=== PATIENT | male | born 1940 | race Caucasian/White ===

== ENCOUNTER 2020-01-30 10:54 | Emergency (ER) | payer MEDICARE, SELFPAY ==
--- NOTE | ~2020-01-30 | XR_ITS ---
XR chest 2V DATE: 01/30/2020 11:23 INDICATION: Chest pain for 2 days TECHNIQUE: AP and lateral views COMPARISON: None FINDINGS: Normal heart size. There is aortic calcification and tortuosity. No hilar or mediastinal en largement. There is eventration of the anterior portion of the right leaf of the diaphragm. No pulmonary infiltrate or consolidation, pleural effusion or pulmonary vascular congestion or pneumo thorax is detected. Diffuse osteopenia. Scoliosis and mild degenerative changes of the thoracic spine. Surgical clips, right upper quadrant, likely due to cholecystectomy. IMPRESSION: No active cardiopulmonary disease Aortic calcification and tortuosity Diffuse osteopenia Reviewed, dictated and finalized at location A.
[2020-01-30 10:52] VITALS: BP 158/86; PULSE 81; RESP 17; TEMP 36.8; O2SAT 98
[2020-01-30 11:00] VITALS: PULSE 85
--- NOTE | 2020-01-30 11:01 | ECG_ITS ---
Measurements Intervals [place] Rate: 80 P: [place]: 0 QRS: 91 QRSD: 166 T: -24 QT: 414 QTc: 479 Interpretive Statements ATRIAL FIBRILLATION RIGHT BUNDLE BRANCH BLOCK ST-T WAVE ABNORMALITY IN INFERIOR LEADS- CONSIDER ISCHEMIA BASELINE ARTIFACT- II ABNORMAL ECG Electronically Signed On 01-30-2020 13:18:01 CDT by Ted Youssef D.O.
[2020-01-30 11:58] LABS: Basophils Absolute Auto 0.1 K/mm3 (0.0-0.1); Basophils Percent Auto 0.7 % (0.2-1.2); Eosinophils Absolute Auto 0.1 K/mm3 (0-0.3); Eosinophils Percent Auto 1.2 % (0-4.4); Hemoglobin 13.8 g/dL (14.0-18.0); Immature Granulocyte Absolute 0.03 K/mm3 (0.00-0.031); Immature Granulocyte Percent A 0.4 % (0-0.5); Lymphocytes Percent Auto 22.3 % (18.3-44.2); Mean Corpuscular HGB Conc 32.1 g/dl (32-36); Mean Corpuscular Hemoglobin 29.7 pg (26-34); Mean Corpuscular Volume 92.7 fl (80-100); Mean Platelet Volume 10.3 fl (7.4-10.4); Monocytes Absolute Auto 0.5 K/mm3 (0.1-0.6); Neutrophils Absolute Auto 5.2 K/mm3 (1.3-6.7); Neutrophils Percent Auto 68.4 % (45.5-73.1); Platelet Count Result 297 k/mm3 (150-375); Red Blood Count 4.64 M/mm3 (4.6-6.20); Red Cell Distribution Width 14.2 % (11.5-14.5); White Blood Count 7.6 K/mm3 (4.5-10.0)
[2020-01-30 12:04] LABS: INR 2.1; Prothrombin Time 23.4 Seconds (11.1-14.7)
[2020-01-30 12:05] LABS: Partial Thromboplastin Time 47.3 SECONDS (22.3-36.8)
[2020-01-30 12:07] LABS: Blood Urea Nitrogen 15 mg/dL (9-20); Calcium 8.8 mg/dL (8.4-10.2); Carbon Dioxide 30 mmol/L (22-30); Chloride 104 mmol/L (98-107); Estimated CRCL calculation 51 ml/min; Estimated Glomerular Filt Rate > 60; Glucose 117 mg/dL (75-110); Potassium 3.5 mmol/L (3.4-5.0); Sodium 140 mmol/L (137-145)
[2020-01-30 12:18] LABS: Troponin I < 0.012 ng/mL (0.000-0.034)
[2020-01-30 14:15] VITALS: BP 142/85; PULSE 70; RESP 18; O2SAT 99
[2020-01-30 14:46] LABS: Troponin I < 0.012 ng/mL (0.000-0.034)
--- NOTE | 2020-01-30 14:58 | ED.CHESTPAIN ---
HPI - Chest Pain General Chief Complaint: Chest Pain Stated Complaint: CP Time Seen by Provider: 01/30/20 10:55 History of Present Illness HPI narrative: Patient is an 80-year-old male who presents the ER with chest pain. It central and pressure and has been occurring more often than not over the last month. Is become more frequent over the last couple weeks. It last for 30 minutes and goes away on its own. It is typically occurring only in the mornings. Last chest pain was 30 minutes prior to arrival. He has no nausea/vomiting/sweats/dizziness with this. It is not associated with eating. Has history of A. fib but no history of coronary disease. Cannot identify aggravating or alleviating factors. Related Data Home Medications Medication Instructions Recorded Confirmed fexofenadine 180 mg tablet 180 mg PO DAILY 08/22/19 omeprazole 20 mg capsule,delayed 20 mg PO DAILY 08/22/19 release tamsulosin 0.4 mg capsule 0.4 mg PO DAILY 08/22/19 Allergies Allergy/AdvReac Type Severity Reaction Status Date / Time No Known Allergies Allergy Verified 01/30/20 11:02 Review of Systems Review of Systems: All systems reviewed & are unremarkable except as noted in HPI and below Constitutional: Constitutional: Denies chills, Denies fever(s) and Denies weakness ENT: Denies nasal congestion and Denies sore throat Cardiovascular: Cardiovascular: Reports chest pain, Denies rapid heart rate and Denies radiating jaw, neck or arm pain Respiratory: Respiratory: Denies cough, Denies dyspnea and Denies wheezing Gastrointestinal: Gastrointestinal: Denies abdominal pain, Denies nausea and Denies vomiting PMFSH Past Medical History Medical History (Updated 01/30/20 @ 15:50 by Kirk Benson MD) BPH (benign prostatic hyperplasia) Chronic a-fib Chronic gastroesophageal reflux disease CKD (chronic kidney disease) stage 3, GFR 30-59 ml/min COPD (chronic obstructive pulmonary disease) HTN (hypertension) Surgical History Surgical History (Updated 01/30/20 @ 15:46 by Kirk Benson MD) H/O thyroidectomy Family History Family History (Updated 12/06/18 @ 08:44 by DOCTOR UNKNOWN) Mother Hypertension Family history of cardiovascular disease Father Family history of Parkinson's disease Malignant neoplasm of prostate Social History Social History Smoking status: Former smoker Smoking end date: 10/05/80 Alcohol intake: current Exam Narrative: Exam Narrative: GENERAL: Well-appearing, well-nourished, and in no acute distress. HEAD: Normocephalic, atraumatic. ENT: Mucous membranes moist. NECK: Supple. CHEST: Clear to auscultation. No respiratory distress. HEART: Irregular regular rate and rhythm. Normal peripheral pulses. ABDOMEN: Soft, nontender, nondistended. EXTREMITIES: Normal range of motion. No edema. SKIN: Warm, dry, no rash. NEURO: Alert and oriented x3. PSYCH: Normal mood and affect. Course Course Emergency Course: Patient informed of results. Discussed case with Dr. Morris. Troponins negative x2. Discussed EKG. Patient is pain-free. Sarah appropriate for close follow-up given persistent nature of his discomfort over the last month and that ACS has been ruled out. Vital Signs Vital signs: Vital Signs Temperature 98.2 F 01/30/20 10:52 Pulse Rate 81 01/30/20 10:52 Respiratory Rate 17 01/30/20 10:52 Blood Pressure 158/86 H 01/30/20 10:52 Pulse Oximetry 98 01/30/20 10:52 Temperature 98.2 F 01/30/20 10:52 Pulse Rate 70 01/30/20 14:15 Respiratory Rate 18 01/30/20 14:15 Blood Pressure 142/85 H 01/30/20 14:15 Pulse Oximetry 99 01/30/20 14:15 MDM - Chest Pain Lab Data Result diagrams: 01/30/20 11:43 01/30/20 11:43 Labs: Lab Results 01/30/20 01/30/20 01/30/20 Range/Units 11:43 11:43 11:43 WBC 7.6 (4.5-10.0) K/mm3 RBC 4.64 (4.6-6.20) M/mm3 Hgb 13.8 L (14.0-18.0) g/dL Hct 43.0 (42.0-52.
[2020-01-30 15:59] VITALS: BP 148/82; PULSE 78; RESP 15; O2SAT 100
== END 2020-01-30 16:00 | disposition home or self-care (01) ==
PROVIDERS: Emergency Provider Emergency Medicine; PCP Family Medicine
DX: R07.9 Chest pain, unspecified (principal); N40.0 Benign prostatic hyperplasia without lower urinary tract symptoms; I48.20 Chronic atrial fibrillation, unspecified; K21.9 Gastro-esophageal reflux disease without esophagitis; I12.9 Hypertensive chronic kidney disease with stage 1 through stage 4 chronic kidney disease, or unspecified chronic kidney disease; N18.3 Chronic kidney disease, stage 3 (moderate); J44.9 Chronic obstructive pulmonary disease, unspecified; E89.0 Postprocedural hypothyroidism; Z87.891 Personal history of nicotine dependence; M85.88 Other specified disorders of bone density and structure, other site; I45.10 Unspecified right bundle-branch block; R94.31 Abnormal electrocardiogram [ECG] [EKG]
CPT/HCPCS: 36415; 71046; 80048; 84484; 85025; 85610; 85730; 93005; 99284

== ENCOUNTER 2020-02-01 03:27 | Inpatient (IN) | payer MEDICARE, SELFPAY ==
[2020-02-01] VITALS (20 sets, daily range): BP systolic 104–167; BP diastolic 59–114; PULSE 57–104; RESP 12–20; TEMP 35.8–36.8; O2SAT 97–100; BMI 26.9
--- NOTE | ~2020-02-01 | XR_ITS ---
EXAMINATION: XR chest 1V portable DATE: 02/01/2020 03:59 INDICATION: Chest pain. TECHNIQUE: A single frontal view of the chest was obtained. COMPARISON: Chest 2 views 01/30/2020 FINDINGS: Again seen is eventration of anterior right hemidiaphragm. No pneumonia, pleural effusion, or pneumothorax. The heart size is normal. IMPRESSION: 1. No acute cardiopulmonary disease. Reviewed, dictated and finalized at location A.
--- NOTE | 2020-02-01 03:40 | ECG_ITS ---
Measurements Intervals [place] Rate: 82 P: [place]: 0 QRS: 106 QRSD: 162 T: -26 QT: 394 QTc: 463 Interpretive Statements ATRIAL FIBRILLATION RIGHT AXIS DEVIATION RIGHT BUNDLE BRANCH BLOCK ST-T WAVE ABNORMALITY IN DIFFUSE LEADS- CONSIDER ISCHEMIA ABNORMAL ECG Electronically Signed On 02-01-2020 7:23:16 CDT by Ted Youssef D.O.
[2020-02-01 03:52] LABS: Basophils Absolute Auto 0.1 K/mm3 (0.0-0.1); Basophils Percent Auto 0.6 % (0.2-1.2); Eosinophils Absolute Auto 0.2 K/mm3 (0-0.3); Eosinophils Percent Auto 1.5 % (0-4.4); Hematocrit 41.9 % (42.0-52.0); Hemoglobin 13.7 g/dL (14.0-18.0); Immature Granulocyte Absolute 0.03 K/mm3 (0.00-0.031); Immature Granulocyte Percent A 0.3 % (0-0.5); Lymphocytes Absolute Auto 3.34 K/mm3 (0.9-3.2); Lymphocytes Percent Auto 33.2 % (18.3-44.2); Mean Corpuscular HGB Conc 32.7 g/dl (32-36); Mean Corpuscular Hemoglobin 30.2 pg (26-34); Mean Corpuscular Volume 92.3 fl (80-100); Mean Platelet Volume 10.5 fl (7.4-10.4); Monocytes Absolute Auto 0.9 K/mm3 (0.1-0.6); Monocytes Percent Auto 8.4 % (2.6-8.5); Neutrophils Absolute Auto 5.6 K/mm3 (1.3-6.7); Platelet Count Result 297 k/mm3 (150-375); Red Blood Count 4.54 M/mm3 (4.6-6.20); Red Cell Distribution Width 14.4 % (11.5-14.5); White Blood Count 10.1 K/mm3 (4.5-10.0)
--- NOTE | 2020-02-01 03:52 | ED.CHESTPAIN ---
HPI - Chest Pain General Chief Complaint: Chest Pain Stated Complaint: cp Time Seen by Provider: 02/01/20 03:47 Source: patient Mode of arrival: EMS History of Present Illness complaint: chest pain Timing of current episode: constant and still present Onset: during rest Pain location: substernal Pain radiation: neck Severity: moderate Quality: tightness Relieving factors: nothing Exacerbating factors: nothing Risk Factors Coronary artery disease risk factors: hyperlipidemia and hypertension Related Data Home Medications Medication Instructions Recorded Confirmed fexofenadine 180 mg tablet 180 mg PO DAILY 08/22/19 omeprazole 20 mg capsule,delayed 20 mg PO DAILY 08/22/19 release tamsulosin 0.4 mg capsule 0.4 mg PO DAILY 08/22/19 Allergies Allergy/AdvReac Type Severity Reaction Status Date / Time No Known Allergies Allergy Verified 02/01/20 03:48 Review of Systems Review of Systems: All systems reviewed & are unremarkable except as noted in HPI and below Constitutional: Constitutional: Denies body ache(s), Denies chills, Denies excessive sweating, Denies fatigue, Denies fever(s), Denies headache(s), Denies lethargy, Denies malaise, Denies weakness and Denies weight loss Eyes: Eyes: Denies blurry vision, Denies change in vision and Denies loss of vision ENT: Denies dizziness, Denies ear discharge, Denies headache(s), Denies lip swelling, Denies epistaxis, Denies nasal congestion, Denies neck pain, Denies throat swelling and Denies tongue swelling Cardiovascular: Cardiovascular: Reports chest pain, Denies chest pain at rest, Denies chest pain with activity, Denies diaphoresis, Denies rapid heart rate, Denies edema, Denies irregular heart rhythm, Denies lightheadedness, Denies palpitations, Denies dyspnea and Denies dyspnea on exertion Respiratory: Respiratory: Denies chest congestion, Denies cough, Denies hemoptysis, Denies dyspnea and Denies dyspnea on exertion Gastrointestinal: Gastrointestinal: Denies abdominal pain, Denies melena, Denies hematochezia, Denies diarrhea, Denies nausea, Denies vomiting and Denies hematemesis Musculoskeletal: Musculoskeletal: Denies abnormal gait, Denies deformity, Denies joint swelling, Denies limited range of motion, Denies neck pain and Denies numbness Neurologic: Denies Abnormal speech present, Denies abnormal gait, Denies confusion, Denies dizziness, Denies headache(s), Denies focal weakness, Denies loss of vision, Denies numbness, Denies Other visual disturbances, Denies Sensory deficit (Neuro) and Denies weakness Psychiatric: Psychiatric: Denies confusion, Denies depression, Denies auditory hallucinations, Denies homicidal ideation and Denies suicidal ideation Endocrine: Endocrine: Denies cold intolerance, Denies excessive sweating, Denies fatigue, Denies heat intolerance and Denies palpitations Hematologic/Lymphatic: Hematologic/Lymphatic: Denies easy bleeding and Denies easy bruising Allergic/Immunologic: Allergic/Immunologic: Denies lip swelling, Denies throat swelling and Denies tongue swelling PMFSH Past Medical History Medical History (Updated 02/01/20 @ 04:12 by Americo Luna MD) BPH (benign prostatic hyperplasia) Chronic a-fib Chronic gastroesophageal reflux disease CKD (chronic kidney disease) stage 3, GFR 30-59 ml/min COPD (chronic obstructive pulmonary disease) HTN (hypertension) Surgical History Surgical History (Updated 01/30/20 @ 15:46 by Kirk Benson MD) H/O thyroidectomy Family History Family History (Updated 12/06/18 @ 08:44 by DOCTOR UNKNOWN) Mother Hypertension Family history of cardiovascular disease Father Family history of Parkinson's disease Malignant neoplasm of prostate Social History Social History Smoking status: Former smoker Smoking end date: 10/05/80 Alcohol intake: current Exam Const: General: cooperative, healthy appearing, comfortable, no acute distress, well developed, alert and awak
[2020-02-01 04:05] LABS: Blood Urea Nitrogen 17 mg/dL (9-20); Calcium 8.9 mg/dL (8.4-10.2); Carbon Dioxide 27 mmol/L (22-30); Chloride 105 mmol/L (98-107); Estimated CRCL calculation 51 ml/min; Estimated Glomerular Filt Rate > 60; Glucose 115 mg/dL (75-110); Potassium 3.7 mmol/L (3.4-5.0); Sodium 139 mmol/L (137-145)
[2020-02-01] MEDS: ASPIRIN 81 MG CHEWABLE TABLET 324 MG PO (04:09)
[2020-02-01] MEDS: NITROGLYCERIN OINTMENT 1 INCH DOSE TRANSDERM ×4 (04:09→23:52)
[2020-02-01 04:18] LABS: NT Pro B Type Natriuretic Pept 717 PG/ML (5-100); Troponin I < 0.012 ng/mL (0.000-0.034)
--- NOTE | 2020-02-01 05:44 | ADMGEN ---
This patient, Derrell Santos, was admitted to IMU Room 213-01. Patient/family oriented to hospital policies and general routines including ID bracelet, bed and alarms, visiting hours, pain management, procedures, bathroom and other care routines, personal items, smoking policy, room service/diet, and visiting hours. Valuables list has been completed. Information on how to activate the Rapid Response Team has been discussed. Patient/Family are encouraged to report perceived risks to care and to ask questions if they do not understand what they are told or what they should do.
[2020-02-01 07:30] LABS: Troponin I 0.089 ng/mL (0.000-0.034)
--- NOTE | 2020-02-01 09:02 | PM.CNCAR ---
Assessment and Plan Additional Plan 80-year-old white male with: Chest pain syndrome concerning for ischemia. The quality of the pain is very concerning as well as the new lateral ST segment depression and modest troponin elevation. He has no previous history of documented coronary disease but these symptoms must be considered related to acute coronary syndrome until proven otherwise Does have chronic atrial fibrillation which is asymptomatic and rate controlled. He is taking Xarelto for systemic anticoagulation. He did take his Xarelto yesterday and so angiography today would not be prudent I will treat him with a beta-leora, aspirin, topical nitrates and withhold Xarelto. We will it anticipate proceeding with diagnostic angiography tomorrow John Morris MD [facility] History of Present Illness History of Present Illness Consult date/time: Date of service: 02/01/20 09:02 Consult reason: chest pain Reason For Visit: Chest Pain, A-fib Narrative: This is an 80-year-old man known to Dr. Fletcher of our practice who is being seen today at the request of the hospitalist for evaluation of chest pain. Previous to this he is not known to have coronary artery disease he follows with Dr. Fletcher in the office because of a history of chronic atrial fibrillation. He developed atrial fibrillation or least it was recognized several years ago. He was referred to the office and he was essentially asymptomatic of his arrhythmia. His evaluation did not show any significant valvular heart disease his left ventricular function is known to be preserved. He does have some mild sclerotic changes in his aortic valve. The patient was last seen in the office about a year ago and at that time was doing well. For about 2 or 3 months he has been having intermittent episodes of chest pain he describes it as a central substernal tightness or pressure-like sensation that is somewhat unusual in that it typically occurs at night after he gets up from sleep to use the restroom and then goes back to bed. The rest of the time during the day he is typically not bothered by this symptom but it does seem to come and go in an unpredictable manner it is not really related to physical exertion that he is noticed. It is not related to meals or body position. He elected to come into the emergency room for evaluation of this on Thursday of this week his ER evaluation was essentially unremarkable his electrocardiogram showed atrial fibrillation with a right bundle branch block and is biomarkers were negative. He was allowed to go home. He came back with more of the symptoms [place] in the middle of the night last night his evaluation in the emergency room now shows his EKG did demonstrate some additional significant lateral ST segment depression which was not seen on Mondays tracing. His troponin level is slightly elevated at 0.08. In this setting he was admitted back to the hospital and we have been consulted to see him. It does not seem like any other physician has seen him since I do not see any other notes on the chart. He normally is on a medical regimen consisting of amlodipine losartan and Xarelto. He does not appear to require anything for heart rate control for his atrial fibrillation. His only complaint now is that he needs to have a bowel movement. He has no previous history of known coronary artery disease. His only previous surgery was a cholecystectomy. Review of Systems Constitutional: Constitutional: Reports no additional constitutional complaints Eyes: Eyes: Reports no additional eye complaints ENT: Reports system reviewed and no additional complaints, except as documented Cardiovascular: Cardiovascular: Reports as per HPI and Reports chest pain Respiratory: Respiratory: Reports no additional respiratory complaints Gastrointestinal: Gastrointestinal: Reports no additional gastrointestinal complaints Musculoskeletal: Musculoskeletal: Reports no additional musc
[2020-02-01] MEDS: METOPROLOL TARTRATE 25 MG TABLET PO ×2 (09:23→21:16)
[2020-02-01] MEDS: ASPIRIN 81 MG ENTERIC TABLET PO (09:23)
--- NOTE | 2020-02-01 09:31 | PM.IMHP ---
H&P: HPI History of Present Illness Chief complaint: Chest Pain, A-fib Narrative: Derrell Santos is a 80 year old male with history of hypertension and chronic atrial fibrillation. He was feeling well until about 2 months ago. At that point he began to have intermittent substernal chest pressure that radiated to the shoulders and neck. Lasted about 10-15 minutes. It was 1st aggravated by physical therapy exercises, particularly thigh rolls. Daily began to have bothersome symptoms while getting up at night to urinate. Each would last about 10-15 minutes. It would occur with his physical therapy exercises or after urinated and walk back to bed. He denied any associated symptoms. The problem gradually worsened. Gradually became more severe. Two days ago it was moderate to severe and lasted a bit longer. 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 He and his called their daughter who encouraged him to go to the emergency department. He denied dyspnea, palpitations, syncope or presyncope, headache, weakness or numbness, nausea or indigestion. Review of Systems Review of Systems: Narrative: Chronic balance issues and unsteady gait. All systems reviewed & are unremarkable except as noted in HPI and below PMFSH Past Medical History Medical History BPH (benign prostatic hyperplasia) Chronic a-fib Chronic gastroesophageal reflux disease CKD (chronic kidney disease) stage 3, GFR 30-59 ml/min COPD (chronic obstructive pulmonary disease) HTN (hypertension) Surgical History Surgical History (Updated 02/01/20 @ 09:52 by Gabino Rosario MD) H/O removal of cyst about 2018, from posterior neck, performed at [facility] ([place]) Family History Family History Mother Hypertension Family history of cardiovascular disease Father Family history of Parkinson's disease Malignant neoplasm of prostate Social History Social History Smoking status: Former smoker Tobacco type: cigarettes Second hand tobacco smoke exposure: Yes Smoking end date: 10/05/80 Alcohol intake: current Drinks per week: 1 Substance use: never Substance use type: does not use Spiritual care concerns: No Agree to blood products: Yes Meds Home Medications and Allergies Home Medications Medication Instructions Recorded Confirmed Type fexofenadine 180 mg tablet 180 mg PO DAILY 08/22/19 02/01/20 History omeprazole 20 mg capsule,delayed 20 mg PO DAILY 08/22/19 02/01/20 History release tamsulosin 0.4 mg capsule 0.4 mg PO DAILY 08/22/19 02/01/20 History amlodipine 5 mg tablet 5 mg PO DAILY #90 tablet 11/10/19 02/01/20 Rx finasteride 5 mg tablet 5 mg PO DAILY #90 tablet 11/10/19 02/01/20 Rx fluticasone furoate 100 1 inhalation INHALATION Q24H #180 11/30/19 02/01/20 Rx mcg-vilanterol 25 mcg/dose each inhalation powder albuterol sulfate 90 mcg/actuation 1 puff INHALATION Q4H PRN #18 gm 12/07/19 02/01/20 Rx aerosol inhaler losartan 50 mg PO DAILY 02/01/20 02/01/20 History rivaroxaban [Xarelto] 20 mg PO DAILY 02/01/20 02/01/20 History Allergies Allergy/AdvReac Type Severity Reaction Status Date / Time No Known Allergies Allergy Verified 02/01/20 03:48 Vital Signs Vital Signs - 24 hr 02/01/20 03:33 02/01/20 03:39 02/01/20 04:53 Temperature 96.7 F L Pulse Rate 77 80 65 Respiratory Rate 16 16 Blood Pressure 167/114 H 157/91 H Pulse Oximetry 98 97 02/01/20 05:43 02/01/20 06:00 02/01/20 07:58 Temperature 97.6 F 96.5 F L Pulse Rate 77 78 72 Respiratory Rate 20 12 Blood Pressure 151/92 H 151/71 H Pulse Oximetry 99 98 02/01/20 09:19 02/01/20 09:23 Temperature 96.6 F L Pulse Rate 91 104 H Respiratory Rate 16 Blood Pressure 140/95 H Pulse Oximetry
[2020-02-01 10:20] LABS: Troponin I 0.141 ng/mL (0.000-0.034)
[2020-02-01] MEDS: TAMSULOSIN HCL 0.4 MG CAPSULE PO (11:46)
[2020-02-01] MEDS: ATORVASTATIN 40 MG TABLET PO (11:46)
[2020-02-01] MEDS: PANTOPRAZOLE 40 MG TABLET PO (11:47)
[2020-02-01] MEDS: LOSARTAN POTASSIUM 50 MG TABLET PO (11:47)
[2020-02-01] MEDS: LORATADINE 10 MG TABLET PO (11:47)
[2020-02-01] MEDS: FINASTERIDE 5 MG TABLET PO (11:47)
[2020-02-01] MEDS: AMLODIPINE BESYLATE 5 MG TABLET PO (11:47)
[2020-02-02] VITALS (23 sets, daily range): BP systolic 119–159; BP diastolic 68–99; PULSE 57–74; RESP 11–21; TEMP 35.6–37; O2SAT 94–100
[2020-02-02 04:41] LABS: Hematocrit 39.6 % (42.0-52.0); Hemoglobin 12.9 g/dL (14.0-18.0); Mean Corpuscular HGB Conc 32.6 g/dl (32-36); Mean Corpuscular Hemoglobin 29.9 pg (26-34); Mean Corpuscular Volume 91.9 fl (80-100); Mean Platelet Volume 10.3 fl (7.4-10.4); Platelet Count Result 298 k/mm3 (150-375); Red Blood Count 4.31 M/mm3 (4.6-6.20); Red Cell Distribution Width 14.2 % (11.5-14.5); White Blood Count 10.1 K/mm3 (4.5-10.0)
[2020-02-02 04:53] LABS: Blood Urea Nitrogen 17 mg/dL (9-20); Calcium 8.8 mg/dL (8.4-10.2); Carbon Dioxide 28 mmol/L (22-30); Chloride 107 mmol/L (98-107); Estimated CRCL calculation 51 ml/min; Estimated Glomerular Filt Rate > 60; Glucose 97 mg/dL (75-110); Potassium 3.6 mmol/L (3.4-5.0); Sodium 140 mmol/L (137-145)
[2020-02-02] MEDS: NITROGLYCERIN OINTMENT 1 INCH DOSE TRANSDERM ×2 (06:10→17:38)
[2020-02-02] MEDS: ASPIRIN 81 MG ENTERIC TABLET PO (08:10)
[2020-02-02] MEDS: METOPROLOL TARTRATE 25 MG TABLET PO (08:10)
[2020-02-02] MEDS: ATORVASTATIN 40 MG TABLET PO (08:11)
[2020-02-02] MEDS: LOSARTAN POTASSIUM 50 MG TABLET PO (08:21)
[2020-02-02] MEDS: AMLODIPINE BESYLATE 5 MG TABLET PO (08:21)
[2020-02-02] MEDS: TAMSULOSIN HCL 0.4 MG CAPSULE PO (08:23)
[2020-02-02] MEDS: PANTOPRAZOLE 40 MG TABLET PO (08:23)
[2020-02-02] MEDS: FINASTERIDE 5 MG TABLET PO (08:24)
[2020-02-02] MEDS: LORATADINE 10 MG TABLET PO (08:24)
--- NOTE | 2020-02-02 11:35 | WPDHPUPDATE1 ---
History and Physical Update Update Date/Time: 02/02/20 11:35 History and Physical has been reviewed, including an updated exam of the patient. There are NO changes in the patient's condition. Risks, benefits, and alternatives have been discussed and questions answered. Patient agrees to proceed with procedure.
--- NOTE | 2020-02-02 11:35 | WPDMODSED ---
Moderate Sedation Note-Pt Data Patient Data Allergies Allergy/AdvReac Type Severity Reaction Status Date / Time No Known Allergies Allergy Verified 02/01/20 03:48 Home Medications Medication Instructions Recorded Confirmed Type fexofenadine 180 mg tablet 180 mg PO DAILY 08/22/19 02/01/20 History omeprazole 20 mg capsule,delayed 20 mg PO DAILY 08/22/19 02/01/20 History release tamsulosin 0.4 mg capsule 0.4 mg PO DAILY 08/22/19 02/01/20 History amlodipine 5 mg tablet 5 mg PO DAILY #90 tablet 11/10/19 02/01/20 Rx finasteride 5 mg tablet 5 mg PO DAILY #90 tablet 11/10/19 02/01/20 Rx fluticasone furoate 100 1 inhalation INHALATION Q24H #180 11/30/19 02/01/20 Rx mcg-vilanterol 25 mcg/dose each inhalation powder albuterol sulfate 90 mcg/actuation 1 puff INHALATION Q4H PRN #18 gm 12/07/19 02/01/20 Rx aerosol inhaler losartan 50 mg PO DAILY 02/01/20 02/01/20 History rivaroxaban [Xarelto] 20 mg PO DAILY 02/01/20 02/01/20 History Current Medications: Active Medications Albuterol (Proventil Hfa) 1 puff INHALATION Q4HRT PRN PRN Reason: shortness of breath or wheezing Amlodipine Besylate (Norvasc) 5 mg PO DAILY [facility] Last Admin: 02/02/20 08:21 Dose: 5 mg Documented by: Aspirin (Aspirin Ec) 81 mg PO QAM [facility] Last Admin: 02/02/20 08:10 Dose: 81 mg Documented by: Atorvastatin Calcium (Lipitor) 40 mg PO DAILY [facility] Last Admin: 02/02/20 08:11 Dose: 40 mg Documented by: Budesonide/Formoterol Fumarate (Symbicort 160-4.5 Mcg (*Sp) Inhaler) 2 puff INHALATION Q12HRT [facility] Last Admin: 02/02/20 08:30 Dose: Not Given Documented by: Finasteride (Proscar) 5 mg PO DAILY [facility] Last Admin: 02/02/20 08:24 Dose: 5 mg Documented by: Sodium Chloride (Normal Saline Iv) 500 mls @ 100 mls/hr IV CONT .Q5H [facility] Loratadine (Claritin) 10 mg PO QAM [facility] Last Admin: 02/02/20 08:24 Dose: 10 mg Documented by: Losartan Potassium (Cozaar) 50 mg PO DAILY [facility] Last Admin: 02/02/20 08:21 Dose: 50 mg Documented by: Metoprolol Tartrate (Lopressor) 25 mg PO Q12HR [facility] Last Admin: 02/02/20 08:10 Dose: 25 mg Documented by: Nitroglycerin (Nitroglycerin Oint 1 Inch) 1 inch TRANSDERM Q6HR [facility] Last Admin: 02/02/20 06:10 Dose: 1 inch Documented by: Nitroglycerin (Nitrostat Subl 0.4 Mg (1/150)) 0.4 mg SUBLINGUAL Q5MIN PRN PRN Reason: Chest Pain Pantoprazole Sodium (Protonix) 40 mg PO QAM [facility] Last Admin: 02/02/20 08:23 Dose: 40 mg Documented by: Tamsulosin HCl (Flomax) 0.4 mg PO DAILY [facility] Last Admin: 02/02/20 08:23 Dose: 0.4 mg Documented by: Sedation/Anesthesia: No previous sedation/anesthesia problems (including family history). [facility] Past Medical History Medical History BPH (benign prostatic hyperplasia) Chronic a-fib Chronic gastroesophageal reflux disease CKD (chronic kidney disease) stage 3, GFR 30-59 ml/min COPD (chronic obstructive pulmonary disease) HTN (hypertension) Surgical History Surgical History H/O removal of cyst about 2018, from posterior neck, performed at [facility]) Family History Family History Mother Hypertension Family history of cardiovascular disease Father Family history of Parkinson's disease Malignant neoplasm of prostate Social History Social History Smoking status: Former smoker Tobacco type: cigarettes Second hand tobacco smoke exposure: Yes Smoking end date: 10/05/80 Alcohol intake: current Drinks per week: 1 Substance use: never Substance use type: does not use Spiritual care concerns: No Agree to blood products: Yes Mod Sed Physical Exam Physical Exam Pre Procedural Exam: Normal: Appearance, Eyes, Ears, Nose, Neck, Throat, Airway, Lungs, Heart Size, Heart Rate, Heart Rhythm, Neuro Exam, Abdomen, L
--- NOTE | 2020-02-02 11:35 | WPDCARDPROC ---
Cardiac Cath Procedure Note Date of procedure:: 02/02/20 Performing physician:: Cece Martinez MD Date of service February 02, 2020 Procedure Procedure performed:: 1-Moderate sedation that started at 9:40 am and ended at 10:20 am with total duration 40 minutes using 2 mg of Versed and 50mcg fentanyl. The registered nurse was pat chartrand 2-Selective left and right coronary angiogram. 3-Left heart catheterization with measurement of LVEDP and measurement of gradient across aortic valve. 4-LV angiogram . Sedation/Medication given:: Moderate sedation. Access site:: Right common femoral artery. Estimated blood loss:: 10cc Procedure note:: After informed consent patient was brought in to clinical lab assistant with the was draped and prepped in usual manner. Moderate sedation was given and the right groin was infiltrated using 1% lidocaine. Five [place]amanian sheath was obtained using micropuncture needle and the modified Seldinger technique. Selective left coronary angiogram was done using JL4 catheter with the tip of the catheter placed in the left main coronary artery. Selective right coronary angiogram was done using WRP catheter with the tip of the catheter placed to the right coronary artery. After that 5 [place]ian pigtail catheter was advanced across the aortic valve into the left ventricle with measurement of LVEDP and measurement of gradient across aortic valve. LV angiogram was done. Findings:: 1- left coronary artery is a large artery that divides into large LAD, large circumflex artery. Left main has mid 90% stenosis. 2- left anterior descending artery is a large artery that runs and wraps around the apex. Has minimal irregularities. Gives a small diagonal 1 branch and then large diagonal 2 branch irregularities. 3- leftcircumflex artery is a large artery and dominant. It has minimal irregularities. The mid segment gives rise to a medium-sized OM 1 branch and then distally large left PDA with minimal irregularities. 4- right coronary artery is nondominant with minimal irregularities. 5- LVEDP was 15 mm Hg and no gradient across aortic valve. 6-LV angiogram shows normal LV systolic function with ejection fraction 65%. 6- opening arterial pressure was and closing pressure [id number] and closing pressure 130/70 Conclusion:: High-grade stenosis mid left main coronary artery Assessment and Plan Additional Plan Will transfer to [facility] for consideration for bypass surgery
--- NOTE | 2020-02-02 12:23 | P.TS_ITS ---
Transfer Discharge Sum: Prov Provider Date of admission: 02/01/20 09:35 Primary care physician: Tomer Mancini MD Admitting clinician: Cj Paulino MD Consults: 02/01/20 Consult to Physician Routine Comment: exchange notified at 0615 on 02/01/20 Consulting Provider: Vinnie Fletcher crew caller/MD group to consult: DR FLETCHER/ [facility] Reason for consultation: CHEST PAIN Has provider been notified: Yes Attending physician on discharge: Gabino Rosario Discharging clinician: Gabino Rosario Anticipated date of transfer: 02/02/20 Receiving physician/facility: [facility] DS: Diagnosis Admitting Diagnosis Admitting Diagnosis: Chest pain, unspecified Discharge Diagnosis (1) Chest pain: Qualifiers: Chest pain type: unspecified Qualified Code(s): R07.9 - Chest pain, unspecified Code(s): R07.9 - Chest pain, unspecified Status: Acute Assessment and Plan: * ST segment changes on electrocardiogram and slight rise in troponin as well as the patient's history of exertion induced chest discomfort are all compatible with stable angina pectoris * Added aspirin beta-leora and nitrates * Added statin * Cardiology to evaluation revealed 90% L Main lesion * [place] accepted (2) Atrial fibrillation: Qualifiers: Atrial fibrillation type: unspecified chronic Qualified Code(s): I48.20 - Chronic atrial fibrillation, unspecified Code(s): I48.91 - Unspecified atrial fibrillation Status: Acute Assessment and Plan: * Held Xarelto 01/31 due to anticipated coronary angiography 02/01 * Continue to hold in anticipation of CABG (3) CKD (chronic kidney disease) stage 3, GFR 30-59 ml/min: Code(s): N18.3 - Chronic kidney disease, stage 3 (moderate) Status: Chronic Assessment and Plan: * Monitor renal function pre and post coronary angiogram (4) Chronic gastroesophageal reflux disease: Code(s): K21.9 - Gastro-esophageal reflux disease without esophagitis Status: Chronic Assessment and Plan: * Continue home regimen (5) HTN (hypertension): Qualifiers: Hypertension type: essential hypertension Qualified Code(s): I10 - Essential (primary) hypertension Code(s): I10 - Essential (primary) hypertension Status: Chronic Assessment and Plan: * Continue losartan and amlodipine * Monitor pressure with the addition beta-leora and nitrates (6) COPD (chronic obstructive pulmonary disease): Code(s): J44.9 - Chronic obstructive pulmonary disease, unspecified Status: Chronic Assessment and Plan: * Clinically stable (7) BPH (benign prostatic hyperplasia): Code(s): N40.0 - Benign prostatic hyperplasia without lower urinary tract symptoms Status: Chronic Assessment and Plan: * Continue home regimen (8) Allergic rhinitis: Code(s): J30.9 - Allergic rhinitis, unspecified Status: Chronic Assessment and Plan: * Continue home regimen (9) Mild intermittent asthma: Code(s): J45.20 - Mild intermittent asthma, uncomplicated Status: Chronic Assessment and Plan: * Continue home regimen (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
--- NOTE | 2020-02-02 12:23 | PM.TDS ---
Transfer Discharge Sum: Prov Provider Date of admission: 02/01/20 09:35 Primary care physician: Tomer Mancini MD Admitting clinician: Cj Paulino MD Consults: 02/01/20 Consult to Physician Routine Comment: exchange notified at 0615 on 02/01/20 Consulting Provider: Vinnie Fletcher coil winder repair/MD group to consult: DR FLETCHER/ [facility] Reason for consultation: CHEST PAIN Has provider been notified: Yes Attending physician on discharge: Gabino Rosario Discharging clinician: Gabino Rosario Anticipated date of transfer: 02/02/20 Receiving physician/facility: [facility] DS: Diagnosis Admitting Diagnosis Admitting Diagnosis: Chest pain, unspecified Discharge Diagnosis (1) Chest pain: Qualifiers: Chest pain type: unspecified Qualified Code(s): R07.9 - Chest pain, unspecified Code(s): R07.9 - Chest pain, unspecified Status: Acute Assessment and Plan: ST segment changes on electrocardiogram and slight rise in troponin as well as the patient's history of exertion induced chest discomfort are all compatible with stable angina pectoris Added aspirin beta-leora and nitrates Added statin Cardiology to evaluation revealed 90% L Main lesion [place] accepted (2) Atrial fibrillation: Qualifiers: Atrial fibrillation type: unspecified chronic Qualified Code(s): I48.20 - Chronic atrial fibrillation, unspecified Code(s): I48.91 - Unspecified atrial fibrillation Status: Acute Assessment and Plan: Held Xarelto 01/31 due to anticipated coronary angiography 02/01 Continue to hold in anticipation of CABG (3) CKD (chronic kidney disease) stage 3, GFR 30-59 ml/min: Code(s): N18.3 - Chronic kidney disease, stage 3 (moderate) Status: Chronic Assessment and Plan: Monitor renal function pre and post coronary angiogram (4) Chronic gastroesophageal reflux disease: Code(s): K21.9 - Gastro-esophageal reflux disease without esophagitis Status: Chronic Assessment and Plan: Continue home regimen (5) HTN (hypertension): Qualifiers: Hypertension type: essential hypertension Qualified Code(s): I10 - Essential (primary) hypertension Code(s): I10 - Essential (primary) hypertension Status: Chronic Assessment and Plan: Continue losartan and amlodipine Monitor pressure with the addition beta-leora and nitrates (6) COPD (chronic obstructive pulmonary disease): Code(s): J44.9 - Chronic obstructive pulmonary disease, unspecified Status: Chronic Assessment and Plan: Clinically stable (7) BPH (benign prostatic hyperplasia): Code(s): N40.0 - Benign prostatic hyperplasia without lower urinary tract symptoms Status: Chronic Assessment and Plan: Continue home regimen (8) Allergic rhinitis: Code(s): J30.9 - Allergic rhinitis, unspecified Status: Chronic Assessment and Plan: Continue home regimen (9) Mild intermittent asthma: Code(s): J45.20 - Mild intermittent asthma, uncomplicated Status: Chronic Assessment and Plan: Continue home regimen (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: Code(s): Z79.01 - long-term (current) use of anticoagulants Status: Chronic Assessment and Plan: Hold 01/31 and 02/01 in anticipation of coronary angiography Last dose 01/30 (11) CAD (coronary artery disease): Code(s): I25.10 - Atherosclerotic heart disease of [place] coronary artery without angina pectoris Status: Acute Transfer Discharge Sum: Med Medications Active and Home Medications: Home Medications fexofenadine 180 mg tablet 180 mg PO DAILY 08/22/19 [History Confirmed 02/01/20] omeprazole 20 mg capsule,delayed release 20 mg PO DAILY 08/22/19 [History Confirmed 02/01/20] tamsulosin 0.4 mg capsule 0.4 mg PO DAILY 08/22/19 [History Confirmed 02/01/20] amlodi
--- NOTE | 2020-02-02 12:59 | SUR.PHASEII ---
02/01/20: 1215: REPORT GIVEN TO GE. PATIENT TO RETURN TO IMU RM 213.
== END 2020-02-02 17:55 | disposition short-term general hospital (02) | DRG 287 ==
LOC: ANHED 04:12 → ANHIMU 05:17
PROVIDERS: Internal Medicine Cardiovascular Disease; Admitting Provider Family Medicine; Emergency Provider Emergency Medicine; PCP Family Medicine; Visit Provider Internal Medicine
PROC: 4A023N7 Measurement of Cardiac Sampling and Pressure, Left Heart, Percutaneous Approach (ICD-10-PCS; CPT 93452; principal; 2020-02-02 08:00)
DX: I25.118 Atherosclerotic heart disease of native coronary artery with other forms of angina pectoris (principal); I48.20 Chronic atrial fibrillation, unspecified; I12.9 Hypertensive chronic kidney disease with stage 1 through stage 4 chronic kidney disease, or unspecified chronic kidney disease; N18.3 Chronic kidney disease, stage 3 (moderate); K21.9 Gastro-esophageal reflux disease without esophagitis; J44.9 Chronic obstructive pulmonary disease, unspecified; N40.0 Benign prostatic hyperplasia without lower urinary tract symptoms; J30.9 Allergic rhinitis, unspecified; J45.20 Mild intermittent asthma, uncomplicated; Z79.01 Long term (current) use of anticoagulants; Z87.891 Personal history of nicotine dependence
CPT/HCPCS: 36415; 71045; 71046; 80048; 83880; 84484; 85025; 85027; 85610; 85730; 93005; 93458; 94640; 99285; A9270; C1887; C1894; G0378; J1644; J2250; J3010; J7040

== ENCOUNTER 2020-02-20 16:00 | IRF | payer MEDICARE, SELFPAY ==
--- NOTE | ~2020-02-20 | XR_ITS ---
EXAMINATION: XR barium swallow modified DATE: 02/28/2020 09:51 INDICATION: Dysphagia. TECHNIQUE: The patient was given barium-containing material of multiple consistencies to swallow by t he speech pathologist while I performed fluoroscopy. Fluoroscopy exposure time was 3.3 minutes. The n umber of fluoroscopy images saved to the PACS was 1. Dose-area product was 2.25 Gy-cm^2. FINDINGS: There was laryngeal penetration to the level of the vocal cords. IMPRESSION: 1. Laryngeal penetration to the level of the vocal cords. 2. Please refer to the speech therapy report for recommendations. Reviewed, dictated and finalized at location A.
[2020-02-20 16:00] VITALS: BP 143/64; PULSE 85; RESP 20; TEMP 36.2; O2SAT 100; BMI 26.6
--- NOTE | 2020-02-20 16:14 | ADMGEN ---
This patient, Derrell Santos, was admitted to [facility] Room 219-01. Patient/family oriented to hospital policies and general routines including ID bracelet, bed and alarms, visiting hours, pain management, procedures, bathroom and other care routines, personal items, smoking policy, room service/diet, and visiting hours. Valuables list has been completed. Information on how to activate the Rapid Response Team has been discussed. Patient/Family are encouraged to report perceived risks to care and to ask questions if they do not understand what they are told or what they should do.
[2020-02-20] MEDS: RIVAROXABAN 20 MG TABLET PO (17:46)
[2020-02-20] MEDS: ATORVASTATIN 40 MG TABLET PO (20:12)
[2020-02-20] MEDS: CEPHALEXIN 500 MG CAPSULE PO (20:13)
[2020-02-20] MEDS: SENNOSIDES 8.6 MG TABLET PO (20:13)
[2020-02-20 22:00] VITALS: BP 136/67; PULSE 65; RESP 18; TEMP 36.6; O2SAT 98
[2020-02-21 04:54] LABS: Basophils Percent Auto 0.2 % (0.2-1.2); Eosinophils Absolute Auto 0.1 K/mm3 (0-0.3); Eosinophils Percent Auto 0.9 % (0-4.4); Hematocrit 27.8 % (42.0-52.0); Hemoglobin 8.9 g/dL (14.0-18.0); Immature Granulocyte Absolute 0.11 K/mm3 (0.00-0.031); Immature Granulocyte Percent A 0.9 % (0-0.5); Lymphocytes Absolute Auto 2.19 K/mm3 (0.9-3.2); Mean Corpuscular Hemoglobin 30.4 pg (26-34); Mean Corpuscular Volume 94.9 fl (80-100); Mean Platelet Volume 10.5 fl (7.4-10.4); Monocytes Percent Auto 8.1 % (2.6-8.5); Neutrophils Absolute Auto 9.4 K/mm3 (1.3-6.7); Neutrophils Percent Auto 72.9 % (45.5-73.1); Platelet Count Result 520 k/mm3 (150-375); Red Blood Count 2.93 M/mm3 (4.6-6.20); Red Cell Distribution Width 15.1 % (11.5-14.5); White Blood Count 12.9 K/mm3 (4.5-10.0)
[2020-02-21 05:07] LABS: Blood Urea Nitrogen 19 mg/dL (9-20); Calcium 8.5 mg/dL (8.4-10.2); Carbon Dioxide 26 mmol/L (22-30); Chloride 106 mmol/L (98-107); Estimated CRCL calculation 56 ml/min; Estimated Glomerular Filt Rate > 60; Glucose 107 mg/dL (75-110); Potassium 4.1 mmol/L (3.4-5.0); Sodium 136 mmol/L (137-145)
[2020-02-21] MEDS: CEPHALEXIN 500 MG CAPSULE PO ×3 (05:33→20:44)
[2020-02-21 06:00] VITALS: BP 106/68; PULSE 62; RESP 18; TEMP 36.4; O2SAT 98
[2020-02-21] MEDS: ASPIRIN 81 MG CHEWABLE TABLET PO (10:09)
[2020-02-21] MEDS: LIDOCAINE 5% PATCH 1 PATCH TOPICAL (10:09)
[2020-02-21 10:10] VITALS: PULSE 62
[2020-02-21] MEDS: METOPROLOL SUCCINATE EXT REL 12.5 MG TABCR PO (10:10)
[2020-02-21] MEDS: LORATADINE 10 MG TABLET PO (10:10)
[2020-02-21] MEDS: PANTOPRAZOLE 40 MG TABLET PO (10:10)
[2020-02-21] MEDS: FINASTERIDE 5 MG TABLET PO (10:10)
[2020-02-21] MEDS: SENNOSIDES 8.6 MG TABLET PO ×2 (10:11→20:44)
[2020-02-21] MEDS: TAMSULOSIN HCL 0.4 MG CAPSULE 0.8 MG PO (10:12)
--- NOTE | 2020-02-21 11:00 | WPDREHABHP ---
H&P: HPI History of Present Illness Chief complaint: CAD Narrative: Derrell Santos is a 80 year old male HISTORY OF PRESENT ILLNESS: The patient's primary rehab impairment category is Fourteen/cardiac The etiologic diagnosis is coronary artery disease I saw this patient [id number] on February 21, 2020 at 11:00 a.m. The patient is a 80-year-old white male with a past medical history of atrial fibrillation, bradycardia, hypertension, hyperlipidemia, benign prostatic hypertrophy, chronic fatigue, chronic obstructive pulmonary disease, and recurrent pneumonia who initially presented to [facility] on February 01, 2020 with a several month history of chest pressure with radiation to the shoulders and back with increasing intensity and frequency in the past week to so. Patient reported that the episodes lasted 10 to 15 minutes assist and have been aggravated by physical therapy exercises and when he gets up to urinate at night also. On the morning of presentation he reported severe chest pressure with associated sweats that persisted for approximately 30 minutes. Cardiac catheterization revealed 90% proximal left main stenosis and left dominant system. LV angiogram showed normal LV systolic function with an ejection fraction of 65%. He was transferred to [facility] on February 02, 2020 for further workup and expected surgical intervention. Patient underwent a coronary artery bypass graft and February 06, 2020. Postoperative period was complicated by respiratory failure requiring short-term ventilatory support and cardiogenic shock requiring pressors. He was extubated on the same day of surgery. After extubation he complained of shortness of breath, he was slowly weaned of oxygen is currently on room air. On February 08 a tracheal suction was sent for culture and growing Serratia marcescens. Chest x-ray did not show evidence of opacity concern for consolidation. He had increase of leukocytosis from 11 to 13 and then 16 to 17 on February 11. He was started on cefepime. Chest tubes were removed on February 10, 2020. On February 13 ultrasound of duplex done showed no DVT however demonstrated pseudoaneurysm of the left growing ( where he had vascular access for IA BP at the time of CABG) communicated with the distal common femoral artery. He underwent thrombin injection, small mobile echogenic thrombus Extending from the pseudoaneurysm neck into the left common femoral artery was also found. 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 UA was normal. 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 Chest x-ray on February 14 showed possible left lower lobe atelectasis. WBCs went up to 21,000 so Infectious Disease was consulted. On interview and physical examination no source of infection identified. He has been afebrile. Blood cultures were obtained x2 with no growth to date. Infectious Disease reported and unclear etiology but possible multifactorial, postoperative reaction, pseudoaneurysm with thrombus, and atelectasis. He completed cefepime and WBCs trending down was currently at 15,000 hand we are here we have at 12,900, the patient is discharged to rehab on p.o. antibiotics. As he is on mechanical soft consistency with nectar thick liquid diet and also on Xarelto the patient has not traveled outside the [place] or had contact with someone who is ill that has traveled outside the [place] in the past 21 days. The patient has not traveled to an area of the [place] that is experiencing known transmission of the Coronavirus Pat has not had close personal contact with anyone that has. Patient does not have a fever and is no longer exhibiting lower extremity illness symptoms. The patient was te
[2020-02-21 11:05] VITALS: PULSE 68
[2020-02-21 12:12] VITALS: BMI 26.6
--- NOTE | 2020-02-21 13:11 | PCSTNOTE ---
Please refer to the Bedside Swallow Evaluation in the EMR.
[2020-02-21 14:00] VITALS: BP 115/55; PULSE 63; RESP 16; TEMP 36.6; O2SAT 100
[2020-02-21] MEDS: DOCUSATE SODIUM 100 MG CAPSULE PO ×2 (14:22→20:43)
--- NOTE | 2020-02-21 15:24 | RPD ---
INDIVIDUALIZED PLAN OF CARE FOR Derrell Santos Brief Synthesis of Pre-Admission Screen, Post-Admission Evaluation and Therapy Evaluations: The patient presents to rehab with Coronary artery disease. Comorbidities include status post coronary artery bypass graft, atrial fibrillation, chronic kidney disease, acute postoperative pain, acute blood loss anemia, chronic obstructive pulmonary disease, hypertensive heart disease, and acute respiratory failure with hypoxia. The patient requires physician services for medical oversight, management of post-op complications in setting of present comorbidities, and pain management. The patient requires nursing services for anticoagulation therapy, DVT prophylactics, IV administration, infection protection, medication management and education, pressure relief, and wound care. Deficits include:ADLs, Balance, Endurance, Family Training/Education, Mobility, Pain Management, ROM, Safety, Strength,Transfers, and Swallowing Modeling Analyst/Case Management for: Discharge Planning and Patient/Family Counseling Physical Therapy: 5 days per week for 75 minutes. Treatments may include: Therapeutic Exercise, Gait Training, Neuromuscular Re-education, Transfer Training, Community Reintegration, Bed Mobility, Patient/Family Education, Wheelchair Mobility Group Therapy/Concurrent Therapy Rationales: -Improve attention span during functional activities in a distracted environment. -Enhance problem solving and/or adequate judgment skills during functional activities in a distracted environment. -Promote increased safety awareness in a distracted environment to reduce fall risk with functional tasks, transfers, and ambulation to allow a more safe, self-sufficient return to the home environment. -Improve dynamic balance skills to promote safety and independence with functional activities in a distracted environment for maximum gain. Occupational Therapy: 5 days per week for 75 minutes. Treatments may include: Therapeutic Exercise, Therapeutic Activity, Cognitive Training, Self-Care Transfer Training, Community Reintegration, Home Management, Patient/Family Education, Wheelchair Mobility Training, Energy Conservation Training Group Therapy/Concurrent Therapy Rationales: -Allow therapist to observe and teach generalization and carry-over of skills learned in individual therapy. -Enhance problem solving and sequencing skills during therapeutic activities in a distracted environment. -Promote increased safety awareness in a realistic setting to reduce fall risk with functional tasks due to visual and verbal distractions. -Increase functional level with ADLs, ADL transfers and use of adaptive equipment through therapeutic activities with others while promoting safety to allow a more safe, self-sufficient return home. Speech Therapy: 5 days per week for 30 minutes. Treatments may include: Dysphasia Therapy, Speech/Language/Communication Therapy, Cognitive Training, Patient/Family Education Group Therapy/Concurrent Therapy - Rationale: -Allow therapist to observe and teach generalization and carry-over of skills learned in individual therapy. -Improve comprehension skills with complex or abstract ideas through discussion in a realistic setting. -Enhance problem solving skills with complex issues during activities in a distracted environment. -Promote increased memory skills and concentration in a distracted environment for a safe transition home. -Improve attention and focus with language/communication skills in a realistic and supportive therapeutic setting. -Allow for practice of expression of basic needs and ideas through functional activities with others. Medical Prognosis: Good Anticipated Length of Stay: 10 days Rehab Goals: Eating Goal: 06-Independent Oral Hygiene Goal: 06-Independent Toileting Hygiene Goal: 06-Independent Shower/Bathe Self Goal: 06-Independent Upper Body Dressing Goal: 06-Independent Lower Body Dressing Goal: 06-Indep
[2020-02-21] MEDS: RIVAROXABAN 20 MG TABLET PO (18:22)
[2020-02-21 20:15] VITALS: PULSE 86; RESP 20
[2020-02-21] MEDS: ATORVASTATIN 40 MG TABLET PO (20:44)
[2020-02-21 22:00] VITALS: BP 141/75; PULSE 86; RESP 20; TEMP 36.7; O2SAT 100
[2020-02-22] MEDS: CEPHALEXIN 500 MG CAPSULE PO ×3 (05:43→19:45)
[2020-02-22 06:00] VITALS: BP 125/79; PULSE 66; RESP 18; TEMP 37.1; O2SAT 100
[2020-02-22 08:40] VITALS: PULSE 75; RESP 17; O2SAT 94
[2020-02-22] MEDS: LORATADINE 10 MG TABLET PO (09:02)
[2020-02-22] MEDS: LIDOCAINE 5% PATCH 1 PATCH TOPICAL (09:02)
[2020-02-22] MEDS: ASPIRIN 81 MG CHEWABLE TABLET PO (09:02)
[2020-02-22] MEDS: DOCUSATE SODIUM 100 MG CAPSULE PO ×2 (09:02→19:44)
[2020-02-22] MEDS: PANTOPRAZOLE 40 MG TABLET PO (09:02)
[2020-02-22 09:03] VITALS: PULSE 68
[2020-02-22] MEDS: FINASTERIDE 5 MG TABLET PO (09:03)
[2020-02-22] MEDS: METOPROLOL SUCCINATE EXT REL 12.5 MG TABCR PO (09:03)
[2020-02-22] MEDS: SENNOSIDES 8.6 MG TABLET PO ×2 (09:03→19:44)
[2020-02-22] MEDS: TAMSULOSIN HCL 0.4 MG CAPSULE 0.8 MG PO (09:03)
--- NOTE | 2020-02-22 13:01 | WPDNEURORHBP ---
Subjective Date/time seen: 02/22/20 13:01 Interval history: this 80-year-old gentleman is here after having had a 2 vessel coronary artery bypass graft and had a rather complicated course postoperatively he is here in the acute rehab denies any headache nausea vomiting chest pain shortness of breath fever chills or sore throat Review of Systems Review of Systems: All systems reviewed & are unremarkable except as noted in HPI and below Functional Status Ambulation Ability Ability to Ambulate 10 Feet: Contact Guard Ability to Ambulate 50 Feet With 2 Turns: Contact Guard Ambulation Assistive Devices: Walker, Wheeled Transfers Ability Ability to Transfer In/Out of Chair: Contact Guard Exam Const: General: comfortable and no acute distress HENMT: General nose exam: Normal nares present Mouth: Yes moist mucous membranes Eyes: General: appearance normal, both eyes and all related structures Neck: Neck: supple and no JVD Resp: Effort & Inspection: normal respiratory effort Auscultation: clear to auscultation bilaterally Cardio: Rate: regular rate Rhythm: regular rhythm GI: GI Palp: Yes Soft to palpation Auscultation: normal bowel sounds Skin: General skin exam: normal color and no rashes or lesions noted Other: the areas of the graft taken from his legs are clean Neuro: Other: patient is awake alert well oriented however does have a really foggy memory of his hospitalization post surgery at the other hospital he is strength is improving but he is generally weak needing assistance in the activities of daily living Extrem: Other: the areas of graft taken from his leg is clean and no sign of infection Psych: Mental Status: mental status grossly normal Objective Data Vital Signs Vital Signs: Vital Signs - 24 hr 02/21/20 14:00 02/21/20 20:15 02/21/20 22:00 Temperature 36.6 C 36.7 C Pulse Rate 63 86 86 Respiratory Rate 16 20 20 Blood Pressure 115/55 L 141/75 H Pulse Oximetry 100 100 02/22/20 06:00 02/22/20 09:03 Temperature 37.1 C Pulse Rate 66 68 Respiratory Rate 18 Blood Pressure 125/79 Pulse Oximetry 100 Intake/Output Intake/Output: Intake & Output 02/19/20 02/20/20 02/21/20 02/22/20 23:59 23:59 23:59 23:59 Intake Total 120 540 120 Balance 120 540 120 Meds/Results Medications: Active Medications Generic Name Dose Route Start Last Admin Trade Name Freq PRN Reason Stop Dose Admin Acetaminophen 650 mg 02/20/20 16:48 Tylenol Tablet PO Q6H PRN Pain Albuterol 1 puff 02/20/20 16:48 Proventil Hfa INHALATION Q6H PRN shortness of breath or wheezing Aspirin 81 mg 02/21/20 09:00 02/22/20 09:02 Aspirin Chewable PO 81 mg DAILY [place] Administration Atorvastatin Calcium 40 mg 02/20/20 21:00 02/21/20 20:44 Lipitor PO 40 mg HS [place] Administration Budesonide/Formoterol Fumarate 2 puff 02/20/20 20:00 02/22/20 08:42 Symbicort 160-4.5 Mcg (*Sp) Inhaler INHALATION 2 puff Q12HRT [place] Administration Cephalexin HCl 500 mg 02/20/20 22:00 02/22/20 05:43 Keflex Capsule PO 02/25/20 14:01 500 mg Q8HR [place] Administration Docusate Sodium 100 mg 02/21/20 14:15 02/22/20 09:02 Colace Capsule PO 100 mg Q12HR [place] Administration Finasteride 5 mg 02/21/20 09:00 02/22/20 09:03 Proscar PO 5 mg DAILY [place] Administration Lidocaine 1 patch 02/21/20 09:00 02/22/20 09:02 Lidoderm TOPICAL 1 patch DAILY [place] Administration Loratadine 10 mg 02/21/20 09:00 02/22/20 09:02 Claritin PO 10 mg DAILY [place] Administration Melatonin 5 mg 02/20/20 16:52 Melatonin PO HS PRN Insomnia Metoprolol Succinate 12.5 mg 02/21/20 09:00 02/22/20 09:03 Toprol Xl PO 12.5 mg QAM [place] Administration Pantoprazole Sodium 40 mg 02/21/20 09:00 02/22/20 09:02 Protonix PO 40 mg QAM [place] Administration Rivaroxaban 20 mg 02/20/20 17:00 02/21/20 18:22 Xarelto PO 20 mg DAILY@1700
[2020-02-22 14:00] VITALS: BP 106/50; PULSE 75; RESP 17; TEMP 36.4; O2SAT 94
--- NOTE | 2020-02-22 14:22 | PCPTNOTE ---
Derrell Santos was evaluated for a wheeled walker on 02/22/2020 by this physical therapist assistant tennis professional. The wheeled walker will resolve patient's mobility limitations and will be used for ADL's within the home. The patient can safely use the wheeled walker. ?The wheeled walker will resolve the patient?s mobility deficits, including decreased endurance, strength and balance.
--- NOTE | 2020-02-22 14:23 | PCPTNOTE ---
Keke Davison PTA completed an inpatient rehab wheelchair evaluation on Derrell Santos on 02/22/2020. The patient is unable to safely and independently ambulate household distances due to their current impairments. Their diagnosis is CAD and their impairments include decreased strength, decreased endurance, decreased range of motion, decreased balance, lower extremity weakness, and ataxia. [f pt name]'s weight bearing status is weight-bearing as tolerated on the bilateral lower legs. The patient demonstrates significant functional mobility limitations that impair their ability to participate in mobility-related activities of daily living (MRADLs), including toileting, feeding, dressing, grooming, and bathing in the customary locations in the home. These limitations cannot be sufficiently resolved by the use of an appropriately fitted cane or walker. It is recommended that the patient utilize a wheelchair for functional mobility within the home in order to facilitate optimal safety, independence and participation in all MRADL's and adequately access their home environment on a regular basis. The patient's home provides adequate access between rooms, maneuvering space, and surfaces to accommodate the recommended wheelchair. The use of a wheelchair for functional mobility is strongly recommended and the patient is receptive to using the wheelchair. The use of this wheelchair will significantly improve the patient's ability to participate in MRADLS and the patient will use it on a regular basis in the home. This will facilitate optimal safety, independence, and participation. The patient has demonstrated sufficient physical and mental capabilities needed to safely propel a manual wheelchair that is provided in the home during a typical day. Recommended Wheelchair Frame: Standard Recommended Wheelchair Size: 18x20 standard wheelchair due to patient anatomical leg length of 24 inches. Recommended Wheelchair Cushion:standard Wheelchair Leg Recommendations: bilateral elevating leg rests - Elevating legrests are recommended because the patient has significant edema of the lower extremities that requires an elevating legrest. -Anti-tippers are recommended due to patient demonstrating increased risk for falls. They would benefit from anti-tippers with added safety and stabilization. Keke Saman [employer] 02/22/2020 Evaluating Therapist Date I agree with and certify that the above recommendation is medically necessary. Referring Physician Date I agree with and certify that the above recommendation is medically necessary. Referring Physician Date
[2020-02-22] MEDS: MAGNESIUM HYDROXIDE SUSP 30 ML UDC PO (15:31)
[2020-02-22] MEDS: RIVAROXABAN 20 MG TABLET PO (17:33)
[2020-02-22] MEDS: ATORVASTATIN 40 MG TABLET PO (19:44)
[2020-02-22 22:00] VITALS: BP 142/64; PULSE 90; RESP 18; TEMP 36.6; O2SAT 100
[2020-02-23 06:00] VITALS: BP 146/81; PULSE 102; RESP 18; TEMP 36.6; O2SAT 100
[2020-02-23] MEDS: CEPHALEXIN 500 MG CAPSULE PO ×3 (08:33→20:15)
[2020-02-23] MEDS: FINASTERIDE 5 MG TABLET PO (08:34)
[2020-02-23] MEDS: LORATADINE 10 MG TABLET PO (08:34)
[2020-02-23] MEDS: DOCUSATE SODIUM 100 MG CAPSULE PO ×2 (08:34→20:15)
[2020-02-23] MEDS: ASPIRIN 81 MG CHEWABLE TABLET PO (08:34)
[2020-02-23] MEDS: LIDOCAINE 5% PATCH 1 PATCH TOPICAL (08:34)
[2020-02-23 08:35] VITALS: PULSE 102
[2020-02-23] MEDS: SENNOSIDES 8.6 MG TABLET PO ×2 (08:35→20:16)
[2020-02-23] MEDS: METOPROLOL SUCCINATE EXT REL 12.5 MG TABCR PO (08:35)
[2020-02-23] MEDS: TAMSULOSIN HCL 0.4 MG CAPSULE 0.8 MG PO (08:35)
[2020-02-23] MEDS: PANTOPRAZOLE 40 MG TABLET PO (08:35)
[2020-02-23 10:30] VITALS: PULSE 102; RESP 18; O2SAT 100
--- NOTE | 2020-02-23 12:04 | PCDIET ---
Nutrition Follow-Up Complete: Nutrition Diagnosis: Predicted suboptimal oral intake related to CABG as evidenced by intakes of 40-100%, modified diet. Nutrition Goal: Patient to consume 75% of meals/supplements or greater. Goal met. Patient with average intake of 78% of meals since 02/22/20. Diet is 2 gram sodium, minced and moist diet with level 2 liquids. Patient does not recall getting Ensure on trays here, but tried it at other hospital and would be receptive to drinking it here. Clarified with dietary department; Ensure Compact was sent on lunch tray today. Last recorded weight is 89.1 kg. Bowel Motility: +BM today. Labs Reviewed: No new chemistry available. Meds Noted: Albuterol, Keflex, Colace, Protonix, Senna Additional Notes: Incision to left leg, chest and left groin. No documented pressure ulcers. Will continue to monitor with same goal. Nutrition Monitoring and Evaluation: Follow up in 7 days.
[2020-02-23 14:00] VITALS: BP 117/62; PULSE 88; RESP 16; TEMP 36.7; O2SAT 100
[2020-02-23] MEDS: RIVAROXABAN 20 MG TABLET PO (18:25)
[2020-02-23] MEDS: ATORVASTATIN 40 MG TABLET PO (20:16)
[2020-02-23 22:00] VITALS: BP 123/68; PULSE 99; RESP 18; TEMP 36.4; O2SAT 100
[2020-02-24] MEDS: CEPHALEXIN 500 MG CAPSULE PO ×3 (05:48→21:01)
[2020-02-24 06:00] VITALS: BP 137/84; PULSE 77; RESP 18; TEMP 36.7; O2SAT 95
[2020-02-24 08:42] VITALS: PULSE 76
[2020-02-24] MEDS: ASPIRIN 81 MG CHEWABLE TABLET PO (08:42)
[2020-02-24] MEDS: FINASTERIDE 5 MG TABLET PO (08:42)
[2020-02-24] MEDS: METOPROLOL SUCCINATE EXT REL 12.5 MG TABCR PO (08:42)
[2020-02-24] MEDS: LORATADINE 10 MG TABLET PO (08:42)
[2020-02-24] MEDS: DOCUSATE SODIUM 100 MG CAPSULE PO ×2 (08:42→21:01)
[2020-02-24] MEDS: TAMSULOSIN HCL 0.4 MG CAPSULE 0.8 MG PO (08:43)
[2020-02-24] MEDS: PANTOPRAZOLE 40 MG TABLET PO (08:43)
[2020-02-24] MEDS: SENNOSIDES 8.6 MG TABLET PO ×2 (08:43→21:00)
--- NOTE | 2020-02-24 13:06 | WPDNEURORHBP ---
Subjective Date/time seen: 02/23/20 13:06 Interval history: this 80-year-old gentleman is here after having had coronary artery bypass graft for significant coronary artery disease he has wound VAC at his sternum and it is going to come of tomorrow and the sutures will be removed couple of days down the line he denies any headache nausea vomiting chest pain shortness of breath fever chills sore throat and his strength is improving Review of Systems Review of Systems: All systems reviewed & are unremarkable except as noted in HPI and below Functional Status Ambulation Ability Ability to Ambulate 10 Feet: Standby Assistance Ability to Ambulate 50 Feet With 2 Turns: Standby Assistance Ability to Ambulate 150 Feet: Contact Guard Ambulation Assistive Devices: Walker, Wheeled Transfers Ability Ability to Transfer In/Out of Chair: Standby Assistance Exam Const: General: comfortable and no acute distress HENMT: General nose exam: Normal nares present Mouth: Yes moist mucous membranes Eyes: General: appearance normal, both eyes and all related structures Neck: Neck: supple and no JVD Chest: Other: the wound VAC at the sternal area is not draining much and is supposed to come off and couple of days and sutures will be removed following that in couple of days Resp: Effort & Inspection: normal respiratory effort Auscultation: clear to auscultation bilaterally Cardio: Rate: regular rate Rhythm: regular rhythm GI: GI Palp: Yes Soft to palpation Auscultation: normal bowel sounds Skin: General skin exam: normal color and no rashes or lesions noted Neuro: Other: patient remains awake alert well oriented time place and person has normal speech and language function normal cranial examination generalized decrease in strength needing assistance in the all the activities of daily living Extrem: General: normal to inspection Other: the site on his lower extremity from the graft taken is clean Psych: Mental Status: mental status grossly normal Objective Data Vital Signs Vital Signs: Vital Signs - 24 hr 02/23/20 14:00 02/23/20 22:00 02/24/20 06:00 Temperature 36.7 C 36.4 C L 36.7 C Pulse Rate 88 99 77 Respiratory Rate 16 18 18 Blood Pressure 117/62 123/68 137/84 Pulse Oximetry 100 100 95 02/24/20 08:42 Temperature Pulse Rate 76 Respiratory Rate Blood Pressure Pulse Oximetry Intake/Output Intake/Output: Intake & Output 05/1902/22/20 02/23/20 02/24/20 23:59 23:59 23:59 23:59 Intake Total 540 840 750 120 Balance 540 840 750 120 Meds/Results Medications: Active Medications Generic Name Dose Route Start Last Admin Trade Name Freq PRN Reason Stop Dose Admin Acetaminophen 650 mg 02/20/20 16:48 Tylenol Tablet PO Q6H PRN Pain Albuterol 1 puff 02/20/20 16:48 Proventil Hfa INHALATION Q6H PRN shortness of breath or wheezing Aspirin 81 mg 02/21/20 09:00 02/24/20 08:42 Aspirin Chewable PO 81 mg DAILY [place] Administration Atorvastatin Calcium 40 mg 02/20/20 21:00 02/23/20 20:16 Lipitor PO 40 mg HS [place] Administration Budesonide/Formoterol Fumarate 2 puff 02/20/20 20:00 02/24/20 08:14 Symbicort 160-4.5 Mcg (*Sp) Inhaler INHALATION 2 puff Q12HRT [place] Administration Cephalexin HCl 500 mg 02/20/20 22:00 02/24/20 05:48 Keflex Capsule PO 02/25/20 14:01 500 mg Q8HR [place] Administration Docusate Sodium 100 mg 02/21/20 14:15 02/24/20 08:42 Colace Capsule PO 100 mg Q12HR [place] Administration Finasteride 5 mg 02/21/20 09:00 02/24/20 08:42 Proscar PO 5 mg DAILY [place] Administration Loratadine 10 mg 02/21/20 09:00 02/24/20 08:42 Claritin PO 10 mg DAILY [place] Administration Magnesium Hydroxide 30 ml 02/22/20 14:58 02/22/20 15:31 Milk Of Magnesia PO 30 ml DAILY PRN Administration Constipation Melatonin 5 mg 02/20/20 16:52 Melatonin PO HS PRN Insomnia Metoprolol Succinate 12
[2020-02-24 14:00] VITALS: BP 123/77; PULSE 75; RESP 17; TEMP 36.3; O2SAT 98
--- NOTE | 2020-02-24 15:10 | WPDNEURORHBP ---
Subjective Date/time seen: 02/24/20 15:10 Interval history: Mr. miller and is here after having had the coronary artery bypass surgery and has a wound VAC which is supposed to be coming of pretty soon and also the sutures will be removed is doing fairly well is weakness has improved denies any chest pain shortness of breath fever chills or sore throat Review of Systems Review of Systems: All systems reviewed & are unremarkable except as noted in HPI and below Functional Status Ambulation Ability Ability to Ambulate 10 Feet: Standby Assistance Ability to Ambulate 50 Feet With 2 Turns: Standby Assistance Ability to Ambulate 150 Feet: Contact Guard Ambulation Assistive Devices: Walker, Wheeled Transfers Ability Ability to Transfer In/Out of Chair: Standby Assistance Exam Const: General: comfortable and no acute distress HENMT: General nose exam: Normal nares present Mouth: Yes moist mucous membranes Eyes: General: appearance normal, both eyes and all related structures Neck: Neck: supple and no JVD Chest: Other: the incision is clean and the wound VAC is not draining oral seems like should be all right have it removed Resp: Effort & Inspection: normal respiratory effort Auscultation: clear to auscultation bilaterally Cardio: Rate: regular rate Rhythm: regular rhythm GI: GI Palp: Yes Soft to palpation Auscultation: normal bowel sounds Skin: General skin exam: normal color and no rashes or lesions noted Neuro: Other: patient is awake alert well oriented time place and person is speech and language function are normal cranial exam horvath normal and his weakness is improving Extrem: General: normal to inspection Psych: Mental Status: mental status grossly normal Objective Data Vital Signs Vital Signs: Vital Signs - 24 hr 02/23/20 22:00 02/24/20 06:00 02/24/20 08:42 Temperature 36.4 C L 36.7 C Pulse Rate 99 77 76 Respiratory Rate 18 18 Blood Pressure 123/68 137/84 Pulse Oximetry 100 95 Intake/Output Intake/Output: Intake & Output 02/21/20 02/22/20 02/23/20 02/24/20 23:59 23:59 23:59 23:59 Intake Total 540 840 750 360 Balance 540 840 750 360 Meds/Results Medications: Active Medications Generic Name Dose Route Start Last Admin Trade Name Freq PRN Reason Stop Dose Admin Acetaminophen 650 mg 02/20/20 16:48 Tylenol Tablet PO Q6H PRN Pain Albuterol 1 puff 02/20/20 16:48 Proventil Hfa INHALATION Q6H PRN shortness of breath or wheezing Aspirin 81 mg 02/21/20 09:00 02/24/20 08:42 Aspirin Chewable PO 81 mg DAILY [place] Administration Atorvastatin Calcium 40 mg 02/20/20 21:00 02/23/20 20:16 Lipitor PO 40 mg HS [place] Administration Budesonide/Formoterol Fumarate 2 puff 02/20/20 20:00 02/24/20 08:14 Symbicort 160-4.5 Mcg (*Sp) Inhaler INHALATION 2 puff Q12HRT [facility] Administration Cephalexin HCl 500 mg 02/20/20 22:00 02/24/20 05:48 Keflex Capsule PO 02/25/20 14:01 500 mg Q8HR [place] Administration Docusate Sodium 100 mg 02/21/20 14:15 02/24/20 08:42 Colace Capsule PO 100 mg Q12HR [place] Administration Finasteride 5 mg 02/21/20 09:00 02/24/20 08:42 Proscar PO 5 mg DAILY [facility] Administration Loratadine 10 mg 02/21/20 09:00 02/24/20 08:42 Claritin PO 10 mg DAILY [facility] Administration Magnesium Hydroxide 30 ml 02/22/20 14:58 02/22/20 15:31 Milk Of Magnesia PO 30 ml DAILY PRN Administration Constipation Melatonin 5 mg 02/20/20 16:52 Melatonin PO HS PRN Insomnia Metoprolol Succinate 12.5 mg 02/21/20 09:00 02/24/20 08:42 Toprol Xl PO 12.5 mg QAM [facility] Administration Pantoprazole Sodium 40 mg 02/21/20 09:00 02/24/20 08:43 Protonix PO 40 mg QAM [facility] Administration Rivaroxaban 20 mg 02/20/20 17:00 02/23/20 18:25 Xarelto PO 20 mg DAILY@1700 [facility] Administration Senna 8.6 mg 02/20/20 21:00 02/24/20 08:43 Senokot Tablet PO 8.6 mg Q
[2020-02-24] MEDS: RIVAROXABAN 20 MG TABLET PO (17:24)
[2020-02-24] MEDS: ATORVASTATIN 40 MG TABLET PO (21:01)
[2020-02-24 22:00] VITALS: BP 118/69; PULSE 68; RESP 18; TEMP 36.3; O2SAT 98
[2020-02-25] MEDS: CEPHALEXIN 500 MG CAPSULE PO ×2 (05:52→14:21)
[2020-02-25 06:00] VITALS: BP 125/59; PULSE 82; RESP 18; TEMP 36.5; O2SAT 96
[2020-02-25] MEDS: ASPIRIN 81 MG CHEWABLE TABLET PO (08:38)
[2020-02-25] MEDS: FINASTERIDE 5 MG TABLET PO (08:38)
[2020-02-25] MEDS: DOCUSATE SODIUM 100 MG CAPSULE PO ×2 (08:38→20:01)
[2020-02-25 08:39] VITALS: PULSE 82
[2020-02-25] MEDS: PANTOPRAZOLE 40 MG TABLET PO (08:39)
[2020-02-25] MEDS: METOPROLOL SUCCINATE EXT REL 12.5 MG TABCR PO (08:39)
[2020-02-25] MEDS: SENNOSIDES 8.6 MG TABLET PO ×2 (08:40→20:02)
[2020-02-25] MEDS: TAMSULOSIN HCL 0.4 MG CAPSULE 0.8 MG PO (08:40)
[2020-02-25] MEDS: LORATADINE 10 MG TABLET PO (08:55)
--- NOTE | 2020-02-25 11:32 | WPDNEURORHBP ---
Subjective Date/time seen: 02/25/20 11:32 S/P coronary bypass with wound vac doing fairly well concerned about thickener Functional Status Ambulation Ability Ability to Ambulate 10 Feet: Standby Assistance Ability to Ambulate 50 Feet With 2 Turns: Standby Assistance Ability to Ambulate 150 Feet: Contact Guard Ambulation Assistive Devices: Walker, Wheeled Transfers Ability Ability to Transfer In/Out of Chair: Standby Assistance Exam Const: General: cooperative, comfortable and no acute distress Nutritional Appearance: average body habitus Limitations: no limitations Eyes: General: appearance normal, both eyes and all related structures Alignment and Position: alignment normal Periorbital: periorbital findings normal Eyelids: eyelids normal Conjunctivae: conjunctivae normal Sclera: sclerae normal Cornea: corneas normal Pupils: Equal, round and reactive pupils present EOM: EOMs intact bilaterally Neck: Neck: full ROM Carotids: normal carotid upstroke Resp: Effort & Inspection: normal respiratory effort and able to speak in complete sentences Auscultation: clear to auscultation bilaterally Cardio: Rate: regular rate Skin: General skin exam: no rashes or lesions noted Neuro: General: patient oriented x3, moves all extremities, no focal motor deficits and CN's II-XI intact bilaterally Cranial nerves: Yes CN's II-XII intact bilaterally Motor exam (neuro): 5/5 motor strength present throughout Sensory Exam: normal sensation Psych: Appearance: grossly normal Speech and movement: Normal speech and movement present Affect: normal affect Attitude: cooperative Thought process: Normal thought process present Thought content: Yes Normal thought content present Insight: Good insight present (Psych) Judgement: Good judgement present (Psych) Objective Data Vital Signs Vital Signs: Vital Signs - 24 hr 02/24/20 14:00 02/24/20 22:00 02/25/20 06:00 Temperature 36.3 C L 36.3 C L 36.5 C Pulse Rate 75 68 82 Respiratory Rate 17 18 18 Blood Pressure 123/77 118/69 125/59 L Pulse Oximetry 98 98 96 02/25/20 08:39 Temperature Pulse Rate 82 Respiratory Rate Blood Pressure Pulse Oximetry Intake/Output Intake/Output: Intake & Output 02/22/20 02/23/20 02/24/20 02/25/20 23:59 23:59 23:59 23:59 Intake Total 840 750 700 200 Balance 840 750 700 200 Meds/Results Medications: Active Medications Generic Name Dose Route Start Last Admin Trade Name Freq PRN Reason Stop Dose Admin Acetaminophen 650 mg 02/20/20 16:48 Tylenol Tablet PO Q6H PRN Pain Albuterol 1 puff 02/20/20 16:48 Proventil Hfa INHALATION Q6H PRN shortness of breath or wheezing Aspirin 81 mg 02/21/20 09:00 02/25/20 08:38 Aspirin Chewable PO 81 mg DAILY [place] Administration Atorvastatin Calcium 40 mg 02/20/20 21:00 02/24/20 21:01 Lipitor PO 40 mg HS [place] Administration Budesonide/Formoterol Fumarate 2 puff 02/20/20 20:00 02/25/20 08:47 Symbicort 160-4.5 Mcg (*Sp) Inhaler INHALATION 2 puff Q12HRT [place] Administration Cephalexin HCl 500 mg 02/20/20 22:00 02/25/20 05:52 Keflex Capsule PO 02/25/20 14:01 500 mg Q8HR [place] Administration Docusate Sodium 100 mg 02/21/20 14:15 02/25/20 08:38 Colace Capsule PO 100 mg Q12HR [place] Administration Finasteride 5 mg 02/21/20 09:00 02/25/20 08:38 Proscar PO 5 mg DAILY [place] Administration Loratadine 10 mg 02/21/20 09:00 02/25/20 08:55 Claritin PO 10 mg DAILY [place] Administration Magnesium Hydroxide 30 ml 02/22/20 14:58 02/22/20 15:31 Milk Of Magnesia PO 30 ml DAILY PRN Administration Constipation Melatonin 5 mg 02/20/20 16:52 Melatonin PO HS PRN Insomnia Metoprolol Succinate 12.5 mg 02/21/20 09:00 02/25/20 08:39 Toprol Xl PO 12.5 mg QAM [place] Administration Pantoprazole Sodium 40 mg 02/21/20 09:00 02/25/20 08:39 Protonix PO 40 mg QAM [place] Administrati
[2020-02-25 14:00] VITALS: BP 118/77; PULSE 83; RESP 16; TEMP 36.9; O2SAT 98
[2020-02-25] MEDS: RIVAROXABAN 20 MG TABLET PO (17:52)
[2020-02-25] MEDS: ATORVASTATIN 40 MG TABLET PO (20:02)
[2020-02-25 21:23] VITALS: BP 131/86; PULSE 94; RESP 22; TEMP 36.7; O2SAT 97
[2020-02-26 06:00] VITALS: BP 128/63; PULSE 78; RESP 20; TEMP 36.8; O2SAT 98
[2020-02-26 08:00] VITALS: PULSE 78; RESP 20; O2SAT 98
[2020-02-26 08:41] VITALS: PULSE 78
[2020-02-26] MEDS: DOCUSATE SODIUM 100 MG CAPSULE PO ×2 (08:41→21:09)
[2020-02-26] MEDS: PANTOPRAZOLE 40 MG TABLET PO (08:41)
[2020-02-26] MEDS: LORATADINE 10 MG TABLET PO (08:41)
[2020-02-26] MEDS: FINASTERIDE 5 MG TABLET PO (08:41)
[2020-02-26] MEDS: ASPIRIN 81 MG CHEWABLE TABLET PO (08:41)
[2020-02-26] MEDS: METOPROLOL SUCCINATE EXT REL 12.5 MG TABCR PO (08:41)
[2020-02-26] MEDS: TAMSULOSIN HCL 0.4 MG CAPSULE 0.8 MG PO (08:42)
[2020-02-26] MEDS: SENNOSIDES 8.6 MG TABLET PO ×2 (08:42→21:09)
[2020-02-26 14:00] VITALS: BP 110/65; PULSE 63; RESP 20; TEMP 36.8; O2SAT 97
--- NOTE | 2020-02-26 14:11 | PC.NURSE ---
wound vac removed from chest incision and no drainage noted. patient tolerated well. continue to monitor.
[2020-02-26] MEDS: RIVAROXABAN 20 MG TABLET PO (17:08)
[2020-02-26 20:53] VITALS: BP 137/66; PULSE 82; RESP 18; TEMP 37.1; O2SAT 100
[2020-02-26] MEDS: ATORVASTATIN 40 MG TABLET PO (21:08)
[2020-02-27 06:00] VITALS: BP 131/75; PULSE 74; RESP 18; TEMP 36.7; O2SAT 99
[2020-02-27 08:18] VITALS: PULSE 74
[2020-02-27] MEDS: DOCUSATE SODIUM 100 MG CAPSULE PO ×2 (08:18→20:26)
[2020-02-27] MEDS: ASPIRIN 81 MG CHEWABLE TABLET PO (08:18)
[2020-02-27] MEDS: LORATADINE 10 MG TABLET PO (08:18)
[2020-02-27] MEDS: FINASTERIDE 5 MG TABLET PO (08:18)
[2020-02-27] MEDS: METOPROLOL SUCCINATE EXT REL 12.5 MG TABCR PO (08:18)
[2020-02-27] MEDS: TAMSULOSIN HCL 0.4 MG CAPSULE 0.8 MG PO (08:19)
[2020-02-27] MEDS: PANTOPRAZOLE 40 MG TABLET PO (08:19)
[2020-02-27] MEDS: SENNOSIDES 8.6 MG TABLET PO ×2 (08:22→20:26)
[2020-02-27 14:00] VITALS: BP 122/74; PULSE 101; RESP 20; TEMP 36.7; O2SAT 99
--- NOTE | 2020-02-27 15:42 | WPDNEURORHBP ---
Subjective Date/time seen: S/PCoronary bypass with swallowing difficulties interested in knowing when he will get tid of edin02/27/20 15:42 Review of Systems Review of Systems: All systems reviewed & are unremarkable except as noted in HPI and below Functional Status Ambulation Ability Ability to Ambulate 10 Feet: Standby Assistance Ability to Ambulate 50 Feet With 2 Turns: Standby Assistance Ability to Ambulate 150 Feet: Standby Assistance Ambulation Assistive Devices: Walker, Wheeled Transfers Ability Ability to Transfer In/Out of Chair: Standby Assistance Exam Const: General: cooperative, healthy appearing, comfortable, no acute distress, alert, awake and Physically active Nutritional Appearance: average body habitus Orientation/consciousness: patient oriented x3 Limitations: no limitations HENMT: Head: normal to inspection General nose exam: No nasal discharge present Mouth: Yes Normal oral and palatal mucosa present Eyes: General: appearance normal, both eyes and all related structures Neck: Neck: full ROM Resp: Effort & Inspection: normal respiratory effort and able to speak in complete sentences Auscultation: clear to auscultation bilaterally Cardio: Rate: regular rate Rhythm: regular rhythm GI: Auscultation: normal bowel sounds Skin: General skin exam: no rashes or lesions noted Neuro: General: patient oriented x3 Cranial nerves: Yes CN's II-XII intact bilaterally Cognition (Neuro): normal cognition Speech: normal speech Gait exam (Neuro): Normal gait present Motor exam (neuro): 5/5 motor strength present throughout Sensory Exam: normal sensation Deep tendon reflexes (DTR's): Right triceps reflex intensity grade: 1+, Left triceps reflex intensity grade: 1+, Rt Biceps (C5, C6): 1+, Left biceps reflex intensity grade: 1+, Right brachioradialis reflex intensity grade: 1+, Left brachioradialis reflex intensity grade: 1+, Right patellar reflex intensity grade: 1+, Left patellar reflex intensity grade: 1+, Right ankle reflex intensity grade: 1+ and Left ankle reflex intensity grade: 1+ Plantar Reflex Responses: downgoing: bilateral Coordination: [id number] test normal Psych: Appearance: grossly normal Objective Data Vital Signs Vital Signs: Vital Signs - 24 hr 02/26/20 20:53 02/27/20 06:00 02/27/20 08:18 Temperature 37.1 C 36.7 C Pulse Rate 82 74 74 Respiratory Rate 18 18 Blood Pressure 137/66 131/75 Pulse Oximetry 100 99 02/27/20 14:00 Temperature 36.7 C Pulse Rate 101 H Respiratory Rate 20 Blood Pressure 122/74 Pulse Oximetry 99 Intake/Output Intake/Output: Intake & Output 02/24/20 02/25/20 02/26/20 02/27/20 23:59 23:59 23:59 23:59 Intake Total 700 560 880 480 Balance 700 560 880 480 Meds/Results Medications: Active Medications Generic Name Dose Route Start Last Admin Trade Name Freq PRN Reason Stop Dose Admin Acetaminophen 650 mg 02/20/20 16:48 Tylenol Tablet PO Q6H PRN Pain Albuterol 1 puff 02/20/20 16:48 Proventil Hfa INHALATION Q6H PRN shortness of breath or wheezing Aspirin 81 mg 02/21/20 09:00 02/27/20 08:18 Aspirin Chewable PO 81 mg DAILY [place] Administration Atorvastatin Calcium 40 mg 02/20/20 21:00 02/26/20 21:08 Lipitor PO 40 mg HS [place] Administration Budesonide/Formoterol Fumarate 2 puff 02/20/20 20:00 02/27/20 08:45 Symbicort 160-4.5 Mcg (*Sp) Inhaler INHALATION Not Given Q12HRT [place] Docusate Sodium 100 mg 02/21/20 14:15 02/27/20 08:18 Colace Capsule PO 100 mg Q12HR [place] Administration Finasteride 5 mg 02/21/20 09:00 02/27/20 08:18 Proscar PO 5 mg DAILY [place] Administration Loratadine 10 mg 02/21/20 09:00 02/27/20 08:18 Claritin PO 10 mg DAILY [place] Administration Magnesium Hydroxide 30 ml 02/22/20 14:58 02/22/20 15:31 Milk Of Magnesia PO 30 ml DAILY PRN Administration Constipation Melatonin 5 mg 02/20/20 16:52
[2020-02-27] MEDS: RIVAROXABAN 20 MG TABLET PO (17:48)
[2020-02-27] MEDS: ALBUTEROL SULFATE (*SP) AEROSOL 1 PUFF INHALATION (20:02)
[2020-02-27] MEDS: ATORVASTATIN 40 MG TABLET PO (20:26)
[2020-02-27 22:00] VITALS: BP 125/62; PULSE 55; RESP 16; TEMP 37.1; O2SAT 97
[2020-02-28 04:47] LABS: Basophils Percent Auto 0.2 % (0.2-1.2); Eosinophils Absolute Auto 0.1 K/mm3 (0-0.3); Eosinophils Percent Auto 1.1 % (0-4.4); Hemoglobin 7.8 g/dL (14.0-18.0); Immature Granulocyte Absolute 0.04 K/mm3 (0.00-0.031); Immature Granulocyte Percent A 0.5 % (0-0.5); Lymphocytes Absolute Auto 1.67 K/mm3 (0.9-3.2); Lymphocytes Percent Auto 20.2 % (18.3-44.2); Mean Corpuscular HGB Conc 31.2 g/dl (32-36); Mean Corpuscular Hemoglobin 30.2 pg (26-34); Mean Corpuscular Volume 96.9 fl (80-100); Mean Platelet Volume 10.2 fl (7.4-10.4); Monocytes Absolute Auto 0.7 K/mm3 (0.1-0.6); Monocytes Percent Auto 8.6 % (2.6-8.5); Neutrophils Absolute Auto 5.8 K/mm3 (1.3-6.7); Neutrophils Percent Auto 69.4 % (45.5-73.1); Platelet Count Result 312 k/mm3 (150-375); Red Blood Count 2.58 M/mm3 (4.6-6.20); Red Cell Distribution Width 14.5 % (11.5-14.5); White Blood Count 8.3 K/mm3 (4.5-10.0)
[2020-02-28 05:00] LABS: Blood Urea Nitrogen 14 mg/dL (9-20); Calcium 8.1 mg/dL (8.4-10.2); Carbon Dioxide 28 mmol/L (22-30); Chloride 104 mmol/L (98-107); Estimated CRCL calculation 62 ml/min; Estimated Glomerular Filt Rate > 60; Glucose 101 mg/dL (75-110); Potassium 3.8 mmol/L (3.4-5.0); Sodium 137 mmol/L (137-145)
[2020-02-28 06:00] VITALS: BP 134/82; PULSE 69; RESP 18; TEMP 36.6; O2SAT 97
[2020-02-28 07:42] VITALS: PULSE 69
[2020-02-28] MEDS: METOPROLOL SUCCINATE EXT REL 12.5 MG TABCR PO (07:42)
[2020-02-28] MEDS: ASPIRIN 81 MG CHEWABLE TABLET PO (07:42)
[2020-02-28] MEDS: FINASTERIDE 5 MG TABLET PO (07:42)
[2020-02-28] MEDS: DOCUSATE SODIUM 100 MG CAPSULE PO ×2 (07:42→20:43)
[2020-02-28] MEDS: LORATADINE 10 MG TABLET PO (07:42)
[2020-02-28] MEDS: TAMSULOSIN HCL 0.4 MG CAPSULE 0.8 MG PO (07:43)
[2020-02-28] MEDS: PANTOPRAZOLE 40 MG TABLET PO (07:43)
[2020-02-28] MEDS: SENNOSIDES 8.6 MG TABLET PO ×2 (07:43→20:43)
--- NOTE | 2020-02-28 13:10 | WPDNEURORHBP ---
Subjective Date/time seen: 02/28/20 13:10 Interval history: this 80-year-old gentleman is here after having had coronary artery bypass surgery for the continue 80 of the care his diet is not appetite sing for him so he will get a modified barium swallow on today and based on that we will further advance the diet and the plan is for him to be discharged either today tomorrow he denies any headache nausea vomiting chest pain or shortness of breath he does have some sutures of the lower part of the chest which is difficult to come out and the I have requested our nurse decommissioning well site manager to look at it to see what could be done Review of Systems Review of Systems: All systems reviewed & are unremarkable except as noted in HPI and below Functional Status Ambulation Ability Ability to Ambulate 10 Feet: Standby Assistance Ability to Ambulate 50 Feet With 2 Turns: Standby Assistance Ability to Ambulate 150 Feet: Standby Assistance Ambulation Assistive Devices: Walker, Wheeled Transfers Ability Ability to Transfer In/Out of Chair: Independent Exam Const: General: comfortable and no acute distress HENMT: General nose exam: Normal nares present Mouth: Yes moist mucous membranes Eyes: General: appearance normal, both eyes and all related structures Neck: Neck: supple and no JVD Resp: Effort & Inspection: normal respiratory effort Auscultation: clear to auscultation bilaterally Cardio: Rate: regular rate Rhythm: regular rhythm GI: GI Palp: Yes Soft to palpation Auscultation: normal bowel sounds Skin: General skin exam: normal color and no rashes or lesions noted Neuro: Other: patient is awake and alert will oriented follows command and has normal speech and language function his strength has improved he does not have any focal or lateralizing motor deficit he is walking with on little help all the reports from the PT OT and great Extrem: General: normal to inspection Psych: Mental Status: mental status grossly normal Objective Data Vital Signs Vital Signs: Vital Signs - 24 hr 02/27/20 14:00 02/27/20 22:00 02/28/20 06:00 Temperature 36.7 C 37.1 C 36.6 C Pulse Rate 101 H 55 L 69 Respiratory Rate 20 16 18 Blood Pressure 122/74 125/62 134/82 Pulse Oximetry 99 97 97 02/28/20 07:42 Temperature Pulse Rate 69 Respiratory Rate Blood Pressure Pulse Oximetry Intake/Output Intake/Output: Intake & Output 0502/26/20 02/27/20 02/28/20 23:59 23:59 23:59 23:59 Intake Total 560 880 680 240 Balance 560 880 680 240 Meds/Results Medications: Active Medications Generic Name Dose Route Start Last Admin Trade Name Freq PRN Reason Stop Dose Admin Acetaminophen 650 mg 02/20/20 16:48 Tylenol Tablet PO Q6H PRN Pain Albuterol 1 puff 02/20/20 16:48 02/27/20 20:02 Proventil Hfa INHALATION 1 puff Q6H PRN Administration shortness of breath or wheezing Aspirin 81 mg 02/21/20 09:00 02/28/20 07:42 Aspirin Chewable PO 81 mg DAILY [place] Administration Atorvastatin Calcium 40 mg 02/20/20 21:00 02/27/20 20:26 Lipitor PO 40 mg HS [place] Administration Budesonide/Formoterol Fumarate 2 puff 02/20/20 20:00 02/28/20 08:00 Symbicort 160-4.5 Mcg (*Sp) Inhaler INHALATION 2 puff Q12HRT [place] Administration Docusate Sodium 100 mg 02/21/20 14:15 02/28/20 07:42 Colace Capsule PO 100 mg Q12HR [place] Administration Finasteride 5 mg 02/21/20 09:00 02/28/20 07:42 Proscar PO 5 mg DAILY [place] Administration Loratadine 10 mg 02/21/20 09:00 02/28/20 07:42 Claritin PO 10 mg DAILY [place] Administration Magnesium Hydroxide 30 ml 02/22/20 14:58 02/22/20 15:31 Milk Of Magnesia PO 30 ml DAILY PRN Administration Constipation Melatonin 5 mg 02/20/20 16:52 Melatonin PO HS PRN Insomnia Metoprolol Succinate 12.5 mg 02/21/20 09:00 02/28/20 07:42 Toprol Xl PO 12.5 mg QAM [place] Administration Pantoprazole Sodium 40 mg 0
[2020-02-28 14:00] VITALS: BP 99/64; PULSE 115; RESP 20; TEMP 37; O2SAT 98
--- NOTE | 2020-02-28 16:48 | PCSTNOTE ---
Please refer to the Modified Barium Swallow Evaluation in the EMR.
[2020-02-28] MEDS: RIVAROXABAN 20 MG TABLET PO (17:21)
[2020-02-28 19:51] VITALS: PULSE 84; RESP 20
[2020-02-28] MEDS: ATORVASTATIN 40 MG TABLET PO (20:43)
[2020-02-28 21:57] VITALS: BP 130/54; PULSE 73; RESP 16; TEMP 37.3; O2SAT 97
[2020-02-29 06:00] VITALS: BP 149/90; PULSE 94; RESP 18; TEMP 36.6; O2SAT 96
[2020-02-29 08:00] VITALS: PULSE 90; RESP 18; O2SAT 96
[2020-02-29 09:44] VITALS: PULSE 86
[2020-02-29] MEDS: METOPROLOL SUCCINATE EXT REL 12.5 MG TABCR PO (09:44)
[2020-02-29] MEDS: LORATADINE 10 MG TABLET PO (09:45)
[2020-02-29] MEDS: TAMSULOSIN HCL 0.4 MG CAPSULE 0.8 MG PO (09:45)
[2020-02-29] MEDS: FINASTERIDE 5 MG TABLET PO (09:45)
[2020-02-29] MEDS: SENNOSIDES 8.6 MG TABLET PO (09:45)
[2020-02-29] MEDS: PANTOPRAZOLE 40 MG TABLET PO (09:45)
[2020-02-29] MEDS: DOCUSATE SODIUM 100 MG CAPSULE PO (09:45)
[2020-02-29] MEDS: ASPIRIN 81 MG CHEWABLE TABLET PO (09:45)
--- NOTE | 2020-02-29 11:37 | WPDNEURORHBP ---
Subjective Date/time seen: 02/29/20 11:37 Interval history: This pleasant 80-year-old gentleman has finished his rehab and is referred ready to be discharged this afternoon he had coronary artery bypass surgery and postop complications from which he has recuperated the sutures have been removed his doing remarkably well his strength has improved and able to achieve our goals denies any chest pain shortness of breath fever chills sore throat Review of Systems Review of Systems: All systems reviewed & are unremarkable except as noted in HPI and below Functional Status Ambulation Ability Ability to Ambulate 10 Feet: Standby Assistance Ability to Ambulate 50 Feet With 2 Turns: Standby Assistance Ability to Ambulate 150 Feet: Standby Assistance Ambulation Assistive Devices: Walker, Wheeled Transfers Ability Ability to Transfer In/Out of Chair: Independent Exam Const: General: comfortable and no acute distress HENMT: General nose exam: Normal nares present Mouth: Yes moist mucous membranes Other: the modified barium swallow performed yesterday shows the patient still needs nectar thickened liquids for which he himself and the family has been trained and they will watch it for any silent or overt aspiration Eyes: General: appearance normal, both eyes and all related structures Neck: Neck: supple and no JVD Resp: Effort & Inspection: normal respiratory effort Auscultation: clear to auscultation bilaterally Cardio: Rate: regular rate Rhythm: regular rhythm GI: GI Palp: Yes Soft to palpation Auscultation: normal bowel sounds Skin: General skin exam: normal color and no rashes or lesions noted Neuro: Other: patient remains well oriented with fluent speech and normal cranial examination and significantly improved his strength bilaterally and able to perform most of the activities of daily living fairly well Extrem: General: normal to inspection Psych: Mental Status: mental status grossly normal Objective Data Vital Signs Vital Signs: Vital Signs - 24 hr 02/28/20 14:00 02/28/20 19:51 02/28/20 21:57 Temperature 37.0 C 37.3 C Pulse Rate 115 H 84 73 Respiratory Rate 20 20 16 Blood Pressure 99/64 L 130/54 L Pulse Oximetry 98 97 02/29/20 06:00 02/29/20 08:00 02/29/20 09:44 Temperature 36.6 C Pulse Rate 94 90 86 Respiratory Rate 18 18 Blood Pressure 149/90 H Pulse Oximetry 96 96 Intake/Output Intake/Output: Intake & Output 02/26/20 02/27/20 02/28/20 02/29/20 23:59 23:59 23:59 23:59 Intake Total 880 680 720 240 Balance 880 680 720 240 Meds/Results Medications: Active Medications Generic Name Dose Route Start Last Admin Trade Name Freq PRN Reason Stop Dose Admin Acetaminophen 650 mg 02/20/20 16:48 Tylenol Tablet PO Q6H PRN Pain Albuterol 1 puff 02/20/20 16:48 02/27/20 20:02 Proventil Hfa INHALATION 1 puff Q6H PRN Administration shortness of breath or wheezing Aspirin 81 mg 02/21/20 09:00 02/29/20 09:45 Aspirin Chewable PO 81 mg DAILY [place] Administration Atorvastatin Calcium 40 mg 02/20/20 21:00 02/28/20 20:43 Lipitor PO 40 mg HS [place] Administration Budesonide/Formoterol Fumarate 2 puff 02/20/20 20:00 02/29/20 09:03 Symbicort 160-4.5 Mcg (*Sp) Inhaler INHALATION 2 puff Q12HRT [place] Administration Docusate Sodium 100 mg 02/21/20 14:15 02/29/20 09:45 Colace Capsule PO 100 mg Q12HR [place] Administration Finasteride 5 mg 02/21/20 09:00 02/29/20 09:45 Proscar PO 5 mg DAILY [place] Administration Loratadine 10 mg 02/21/20 09:00 02/29/20 09:45 Claritin PO 10 mg DAILY [place] Administration Magnesium Hydroxide 30 ml 02/22/20 14:58 02/22/20 15:31 Milk Of Magnesia PO 30 ml DAILY PRN Administration Constipation Melatonin 5 mg 02/20/20 16:52 Melatonin PO HS PRN Insomnia Metoprolol Succinate 12.5 mg 02/21/20 09:00 02/29/20 09:44 Toprol Xl PO 12.5 mg QAM [facility] Ad
[2020-02-29 14:00] VITALS: BP 116/72; PULSE 76; RESP 20; TEMP 37; O2SAT 97
--- NOTE | 2020-03-03 15:49 | DS_ITS ---
DATE OF DISCHARGE: 02/29/2020 DISCHARGE ACUTE REHAB DIAGNOSIS: Primary rehab impairment category 14 that is cardiac with etiological diagnosis of coronary artery disease. DISCHARGE ACTIVE COMORBID CONDITIONS: 1. Atrial fibrillation with bradycardia. 2. Hypertension. 3. Hyperlipidemia. 4. Benign prostatic hypertrophy. 5. Chronic obstructive pulmonary disease. 6. Recurrent pneumonia. 7. Chronic fatigue. REASON FOR ADMISSION: This 80-year-old right-handed male presented to [facility] ER on 02/01/2020, with a complaint of several months of chest pressure with radiation to the shoulder and the back with increasing frequency and intensity over the last week. Episodes were lasting 10-15 minutes, aggravated by physical therapy and exercises and while getting up from the toilet. On the morning of presentation, he complained of severe chest discomfort along with sweats, which persisted for 30 minutes. Initially, cardiac catheterization was done, which revealed 90% proximal left main artery stenosis, left dominant system. Left ventricular angiogram showed left ventricular systolic function with ejection fraction of 65%. He was transferred to [facility] on 02/02/2020 for further workup and possibly surgical intervention. He underwent coronary artery bypass grafting on 02/06/2020. Postoperatively, course was complicated with respiratory failure requiring ventilator support and also cardiogenic shock requiring pressors. He was extubated on the same day of surgery. After extubation, he complained of shortness of breath and was slowly weaned off oxygen and was subsequently on room air. On 02/08, a tracheal suction was sent for culture which grew Serratia marcescens. Chest x-ray revealed no evidence of opacity concerning for consolidation, but he was noted to have leukocytosis on the CBC. He was started on cefepime. Chest tubes were removed by 02/10/2020. 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 Communicating with the distal common femoral artery. He underwent thrombin injection. Small mobile echogenic thrombus, extending pseudoaneurysm neck into the left common femoral artery was also found. CT and performed showing no mediastinal osteomyelitis. There was a small amount of mediastinal hematoma. Urinary bladder wall thickening with large diverticulum. UA was normal. On 02/14, ultrasound of the lower groin revealed persistent thrombosis of treated left common femoral artery, pseudoaneurysm without recurrence and resolution of small mobile thrombus. Chest x-ray on 02/14 revealed possible left lower lobe atelectasis with leukocytosis on CBC for which Infectious Disease was consulted. No further source of infection was identified. Blood cultures were negative. Postoperatively, fever was attributed to multifocal etiology. Cefepime was completed. The patient was discharged to rehab on antibiotics. He had not traveled anywhere who had COVID-19 and was not in contact with any person. LEVEL OF FUNCTION AT THE TIME OF ADMISSION: He was independent for eating, required setup for oral hygiene, supervision for toileting, partial assistance for bathing, supervision for upper body dressing, partial assistance for lower body dressing, supervision for footwear. He was independent for rolling in bed, sit to lying, lying to sit, required partial assistance for sit to stand, supervision for chair transfer, partial transfer, toilet transfer, supervision for car transfer, walking 10 feet, 50 feet with 2 turns. He was unable to walk 150 feet. He required supervision for walking 10 feet on uneven surfaces, curb or step, 4 steps, 12 steps, but he was independent for picking up the object. ANTICIPATED
--- NOTE | 2020-03-14 10:41 | STIPEVAL ---
Thank you for referring Derrell Santos to [facility]. Please review, sign, date and return this plan of care MON[place]AT. I agree with and certify that the following plan of care is medically necessary. Referring Physician Date Admitting Provider: Jarad aCmarena MD Attending Provider: Samm Nelson MD Referring Provider: *ST Inpatient Evaluation Start: 02/21/20 12:50 Freq: Status: Discharge Protocol: Document 02/29/20 10:40 [place] (Rec: 03/07/20 10:41 [place] [email or web address]) Therapy Assessment Status Assessment Status Assessment Status Discharge Pain Assessment Self Report Self Report Pain Level 0 Pain Score Pain Score 0: Self Report ST Weekly Team Conference ST Weekly Progress Food Consistency Minced & Moist, Level 5 Liquid Consistency Mildly Thick, Level 2 ST Impairments Impaired Swallowing Functional Progress Made in Prior Week Swallow or Since Admission ST Barriers to Discharge Swallowing Issues ST Clinical Summary Clinical Summary ST Clinical Summary Overall, pt continues to present with high risk for aspiration; pharyngeal weakness, i.e. reduced tongue base retraction and reduced laryngeal elevation which causes vallecular & pyriform sinus residue and laryngeal penetration. With verbal cues and 1:1 coaching during oral intake, pt could have thin liquids. Without the constant supervision, recommend pt continue with the mildly thick liquids. ST Procedures Total ST Minutes Total Minutes Of Individual ST This 0 Session (Minutes) Query Text:Speech Therapy Services By One Licensed CAR PINCHER To One Patient At A Time (As One-On One Therapy). Total Minutes Of ST This Session (0-180 0 Minutes) Query Text:Total Minutes Must Equal Or Exceed The Sum Of The Minutes Documented Within This Assessment Speech Therapy Units Of Care (Medicare 0 Standards) (1-8 Units) Query Text:Does Not Take Into Account Procedural Based Charges Speech Therapy Units Of Care (Medicaid 0 Standards) (1-8 Units) Query Text:Cannot Exceed 4 Units
== END 2020-02-29 15:45 | disposition home health service (06) | DRG 949 ==
PROVIDERS: Admitting Provider Psychiatry & Neurology Neurology; PCP Family Medicine; Visit Provider Psychiatry & Neurology Neurology
DX: Z48.812 Encounter for surgical aftercare following surgery on the circulatory system (principal); I48.20 Chronic atrial fibrillation, unspecified; T81.718D Complication of other artery following a procedure, not elsewhere classified, subsequent encounter; T81.11XD Postprocedural cardiogenic shock, subsequent encounter; I25.10 Atherosclerotic heart disease of native coronary artery without angina pectoris; E78.5 Hyperlipidemia, unspecified; H91.90 Unspecified hearing loss, unspecified ear; I13.10 Hypertensive heart and chronic kidney disease without heart failure, with stage 1 through stage 4 chronic kidney disease, or unspecified chronic kidney disease; J30.9 Allergic rhinitis, unspecified; J45.20 Mild intermittent asthma, uncomplicated; J44.9 Chronic obstructive pulmonary disease, unspecified; K21.9 Gastro-esophageal reflux disease without esophagitis; N40.0 Benign prostatic hyperplasia without lower urinary tract symptoms; N18.3 Chronic kidney disease, stage 3 (moderate); R13.10 Dysphagia, unspecified; R53.82 Chronic fatigue, unspecified; Z95.1 Presence of aortocoronary bypass graft; Z87.891 Personal history of nicotine dependence; Z79.01 Long term (current) use of anticoagulants
CPT/HCPCS: 36415; 80048; 85025; 92526; 92610; 92611; 94640; 97110; 97116; 97162; 97166; 97530; 97535; A9270

== ENCOUNTER 2020-03-05 17:00 | Outpatient (CLI) | payer MEDICARE, SELFPAY ==
[2020-03-05 17:20] LABS: Basophils Percent Auto 0.4 % (0.2-1.2); Eosinophils Absolute Auto 0.1 K/mm3 (0-0.3); Eosinophils Percent Auto 1.4 % (0-4.4); Hematocrit 29.2 % (42.0-52.0); Immature Granulocyte Absolute 0.02 K/mm3 (0.00-0.031); Immature Granulocyte Percent A 0.3 % (0-0.5); Lymphocytes Absolute Auto 1.65 K/mm3 (0.9-3.2); Lymphocytes Percent Auto 21.5 % (18.3-44.2); Mean Corpuscular HGB Conc 30.8 g/dl (32-36); Mean Corpuscular Hemoglobin 29.9 pg (26-34); Mean Platelet Volume 10.3 fl (7.4-10.4); Monocytes Absolute Auto 0.7 K/mm3 (0.1-0.6); Monocytes Percent Auto 9.1 % (2.6-8.5); Neutrophils Absolute Auto 5.2 K/mm3 (1.3-6.7); Neutrophils Percent Auto 67.3 % (45.5-73.1); Platelet Count Result 270 k/mm3 (150-375); Red Blood Count 3.01 M/mm3 (4.6-6.20); Red Cell Distribution Width 14.6 % (11.5-14.5); White Blood Count 7.7 K/mm3 (4.5-10.0)
[2020-03-05 17:32] LABS: Alanine Aminotransferase 22 U/L (4-50); Albumin Level 3.6 g/dL (3.5-5.1); Alkaline Phosphatase 103 U/L (38-126); Aspartate Amino Transferase 27 U/L (17-59); Bilirubin,Total 0.4 mg/dL (0.2-1.3); Blood Urea Nitrogen 16 mg/dL (9-20); Calcium 8.4 mg/dL (8.4-10.2); Carbon Dioxide 26 mmol/L (22-30); Chloride 104 mmol/L (98-107); Estimated Glomerular Filt Rate > 60; Glucose 102 mg/dL (75-110); Potassium 4.1 mmol/L (3.4-5.0); Sodium 137 mmol/L (137-145)
[2020-03-05 17:41] LABS: NT Pro B Type Natriuretic Pept 4180 PG/ML (5-100)
== END 2020-03-05 17:01 | disposition home or self-care (01) ==
PROVIDERS: PCP Family Medicine; Visit Provider Physician Assistant
DX: R06.02 Shortness of breath (principal); R60.0 Localized edema
CPT/HCPCS: 36415; 80053; 83880; 85025

== ENCOUNTER 2020-03-09 14:03 | Outpatient (CLI) | payer MEDICARE, SELFPAY ==
[2020-03-09 15:15] LABS: NT Pro B Type Natriuretic Pept 2510 PG/ML (5-100)
== END 2020-03-09 14:04 | disposition home or self-care (01) ==
PROVIDERS: PCP Family Medicine; Visit Provider Physician Assistant
DX: R06.02 Shortness of breath (principal); R60.0 Localized edema
CPT/HCPCS: 36415; 83880

== ENCOUNTER 2020-07-26 15:00 | Outpatient (RCR) | payer MEDICARE, SELFPAY ==
[2020-05-04 10:48] VITALS: BP 112/78; PULSE 56; RESP 16; TEMP 36.7; O2SAT 98
== END 2020-07-26 18:13 | disposition home or self-care (01) ==
LOC: ANHCPREHAB 15:00
PROVIDERS: PCP Family Medicine; Visit Provider Nurse Practitioner Adult Health
DX: Z95.1 Presence of aortocoronary bypass graft (principal)
CPT/HCPCS: 93798

== ENCOUNTER 2020-12-12 16:14 | Outpatient (CLI) | payer MEDICARE, SELFPAY ==
--- NOTE | ~2020-12-12 | XR_ITS ---
EXAMINATION: XR chest 2V DATE: 12/12/2020 16:50 INDICATION: Shortness of breath. Cough. TECHNIQUE: Frontal and lateral views of the chest were obtained. COMPARISON: Chest single view 02/01/20 FINDINGS: There are patchy airspace opacities in right lung predominantly involving the mid and lower lung zones. There are patchy airspace opacities in left mid and lower lung zones. No pleural effusio n or pneumothorax. The heart size is normal. There are changes of coronary artery bypass grafting. Th ere is a closure device at the left atrial appendage. Surgical clips in the right upper quadrant are likely from cholecystectomy. IMPRESSION: 1. Bilateral lung disease with a mid and lower lung zone predominance, consistent with pneumonia. Reviewed, dictated and finalized at location A. ICATION ADMINISTRATOR IMPRESSION: 1. Bilateral lung disease with a mid and lower lung zone predominance, consiste nt with pneumonia.
[2020-12-12 17:15] LABS: Basophils Percent Auto 0.3 % (0.2-1.2); Eosinophils Absolute Auto 0.1 K/mm3 (0-0.3); Eosinophils Percent Auto 0.7 % (0-4.4); Hematocrit 35.6 % (42.0-52.0); Hemoglobin 11.5 g/dL (14.0-18.0); Immature Granulocyte Absolute 0.08 K/mm3 (0.00-0.031); Immature Granulocyte Percent A 0.9 % (0-0.5); Lymphocytes Absolute Auto 1.66 K/mm3 (0.9-3.2); Lymphocytes Percent Auto 18.1 % (18.3-44.2); Mean Corpuscular HGB Conc 32.3 g/dl (32-36); Mean Corpuscular Hemoglobin 28.9 pg (26-34); Mean Corpuscular Volume 89.4 fl (80-100); Mean Platelet Volume 9.3 fl (7.4-10.4); Monocytes Absolute Auto 0.9 K/mm3 (0.1-0.6); Monocytes Percent Auto 9.5 % (2.6-8.5); Neutrophils Absolute Auto 6.5 K/mm3 (1.3-6.7); Neutrophils Percent Auto 70.5 % (45.5-73.1); Platelet Count Result 637 k/mm3 (150-375); Red Blood Count 3.98 M/mm3 (4.6-6.20); Red Cell Distribution Width 14.6 % (11.5-14.5); White Blood Count 9.2 K/mm3 (4.5-10.0)
[2020-12-12 17:19] LABS: Add Urine Microscopic? YES; Appearance Urine Clear (Clear); Bilirubin Urine Negative (Negative); Blood Urine Negative (Negative); Color Urine Yellow (Yellow); Glucose Urine UA Negative (Negative); Ketones Urine Negative (Negative); Leukocyte Esterase Ur Trace LEU/UL (NEGATIVE); Mucus Urine Few /lpf; Nitrate Urine Negative (Negative); Protein Urine Negative (Negative); Specific Grav Ur 1.017 (1.001-1.035); Urobilinogen Urine Negative mg/dL (<2.0); WBC Urine 0-3 /hpf (0-3)
[2020-12-12 17:29] LABS: Alanine Aminotransferase 43 U/L (4-50); Albumin Level 3.6 g/dL (3.5-5.1); Alkaline Phosphatase 105 U/L (38-126); Anion Gap 6 mmol/L (8-16); Aspartate Amino Transferase 42 U/L (17-59); Bilirubin,Total 0.8 mg/dL (0.2-1.3); Blood Urea Nitrogen 18 mg/dL (9-20); Calcium 8.4 mg/dL (8.4-10.2); Carbon Dioxide 28 mmol/L (22-30); Chloride 105 mmol/L (98-107); Estimated Glomerular Filt Rate > 60; Glucose 106 mg/dL (75-110); Potassium 3.9 mmol/L (3.4-5.0); Sodium 139 mmol/L (137-145)
[2020-12-12 17:36] LABS: NT Pro B Type Natriuretic Pept 2660 PG/ML (5-100)
[2020-12-12 17:57] LABS: Thyroid Stimulating Hormone 0.396 uIU/mL (0.465-4.680)
== END 2020-12-12 16:15 | disposition home or self-care (01) ==
LOC: ANHIMG 16:22
PROVIDERS: PCP Family Medicine; Visit Provider Nurse Practitioner Family
DX: R05 Cough (principal); R06.02 Shortness of breath; N39.0 Urinary tract infection, site not specified; I50.9 Heart failure, unspecified; N18.30 Chronic kidney disease, stage 3 unspecified; I12.9 Hypertensive chronic kidney disease with stage 1 through stage 4 chronic kidney disease, or unspecified chronic kidney disease; J44.9 Chronic obstructive pulmonary disease, unspecified; R53.83 Other fatigue; R91.8 Other nonspecific abnormal finding of lung field
CPT/HCPCS: 36415; 71046; 80053; 81001; 83880; 84443; 85025; 87086

== ENCOUNTER 2021-05-02 08:28 | Outpatient (CLI) | payer MEDICARE, SELFPAY ==
[2021-05-02 08:54] LABS: Basophils Absolute Auto 0.1 K/mm3 (0.0-0.1); Basophils Percent Auto 0.7 % (0.2-1.2); Eosinophils Absolute Auto 0.2 K/mm3 (0-0.3); Eosinophils Percent Auto 1.9 % (0-4.4); Hematocrit 36.4 % (42.0-52.0); Hemoglobin 11.7 g/dL (14.0-18.0); Immature Granulocyte Absolute 0.04 K/mm3 (0.00-0.031); Immature Granulocyte Percent A 0.4 % (0-0.5); Lymphocytes Absolute Auto 2.08 K/mm3 (0.9-3.2); Lymphocytes Percent Auto 22.2 % (18.3-44.2); Mean Corpuscular HGB Conc 32.1 g/dl (32-36); Mean Corpuscular Hemoglobin 29.4 pg (26-34); Mean Corpuscular Volume 91.5 fl (80-100); Mean Platelet Volume 10.2 fl (7.4-10.4); Monocytes Absolute Auto 0.9 K/mm3 (0.1-0.6); Monocytes Percent Auto 9.8 % (2.6-8.5); Neutrophils Absolute Auto 6.1 K/mm3 (1.3-6.7); Platelet Count Result 286 k/mm3 (150-375); Red Blood Count 3.98 M/mm3 (4.6-6.20); Red Cell Distribution Width 13.9 % (11.5-14.5); White Blood Count 9.4 K/mm3 (4.5-10.0)
[2021-05-02 09:46] LABS: Add Urine Microscopic? NO; Appearance Urine Clear (Clear); Bilirubin Urine Negative (Negative); Blood Urine Negative (Negative); Color Urine Yellow (Yellow); Glucose Urine UA Negative (Negative); Ketones Urine Negative (Negative); Leukocyte Esterase Ur Negative LEU/UL (NEGATIVE); Nitrate Urine Negative (Negative); Protein Urine Negative (Negative); Specific Grav Ur 1.019 (1.001-1.035); Urobilinogen Urine Negative mg/dL (<2.0)
[2021-05-02 11:53] LABS: LDL Cholesterol Direct 42 mg/dL
[2021-05-02 12:12] LABS: Thyroid Stimulating Hormone 0.998 uIU/mL (0.465-4.680)
[2021-05-02 12:18] LABS: Alanine Aminotransferase 14 U/L (4-50); Albumin Level 3.9 g/dL (3.5-5.1); Alkaline Phosphatase 77 U/L (38-126); Anion Gap 10 mmol/L (8-16); Aspartate Amino Transferase 20 U/L (17-59); Bilirubin,Total 0.7 mg/dL (0.2-1.3); Blood Urea Nitrogen 17 mg/dL (9-20); Calcium 9.3 mg/dL (8.4-10.2); Carbon Dioxide 27 mmol/L (22-30); Chloride 104 mmol/L (98-107); Cholesterol 123 mg/dL (0-200); Estimated Glomerular Filt Rate 58; Glucose 103 mg/dL (65-110); HDL Direct 58 mg/dL; Sodium 141 mmol/L (137-145); Triglycerides 70 mg/dL (<150)
== END 2021-05-02 08:29 | disposition home or self-care (01) ==
LOC: ANHLAB 08:31
PROVIDERS: PCP Family Medicine; Visit Provider Nurse Practitioner Family
DX: I12.9 Hypertensive chronic kidney disease with stage 1 through stage 4 chronic kidney disease, or unspecified chronic kidney disease (principal); N18.30 Chronic kidney disease, stage 3 unspecified; D63.1 Anemia in chronic kidney disease; E78.2 Mixed hyperlipidemia; Z00.00 Encounter for general adult medical examination without abnormal findings
CPT/HCPCS: 36415; 80053; 80061; 81003; 84443; 85025

== ENCOUNTER 2022-10-07 11:42 | Inpatient (IN) | payer MEDICARE, SELFPAY ==
[2022-10-07] VITALS (13 sets, daily range): BP systolic 114–176; BP diastolic 54–86; PULSE 34–44; RESP 17–22; TEMP 36.3–36.7; O2SAT 94–99; BMI 23.6
--- NOTE | 2022-10-07 | ECHO_ITS ---
Patient Info Name: Derrell Santos Age: 82 years : 1940 Gender: Male Ht: 72 in Wt: 174 lbs BSA: 2.00 m2 HR: 39 bpm BP: 176 / 59 mmHg Heart Rhythm: Atrial Fibrillation, Bradycardia Exam Date: 10/07/2022 3:47 PM Exam Location: [facility] Patient Status: Inpatient Admit Date: 10/07/2022 Staff Ordering Physician: Jones Baxter MD (alon/mariah) Student Life Dean: Marcin Luna RDCS Attending Provider: Marce Johnson DO Referring Physician: Sahil FREDERICK; Exam Type: CA echo doppler color flow Study Info Indications R00.1 - Bradycardia, unspecified Complete two-dimensional, color flow and Doppler transthoracic echocardiogram is performed. Summary 1. Complete two-dimensional, color flow and Doppler transthoracic echocardiogram is performed. 2. Mild left ventricular enlargement with mild eccentric left ventricular hypertrophy. Good systolic function of all segments. Calculated ejection fraction was 61%, visually it is 60-65%. Diastolic dysfunction is noted. 3. Right ventricular chamber dimension is mildly enlarged. 4. Left atrial chamber dimension is moderately enlarged. 5. Right atrial chamber dimension is moderately enlarged. 6. There is mild aortic valve regurgitation. 7. There is mild mitral valve regurgitation. 8. There is moderate to severe tricuspid valve regurgitation. 9. Moderate pulmonary hypertension, estimated pulmonary arterial systolic pressure is 49 mmHg. 10. There is moderate pulmonic regurgitation. 11. Dilated inferior vena cava with <50% collapse upon inspiration consistent with significantly elevated right atrial pressure, 20 mmHg. 12. Atrial fibrillation. Left Ventricle Left ventricular chamber dimension is mildly enlarged. Left ventricular systolic function is normal, estimated at 60-65%. There is mildly increased left ventricular wall thickness. Left ventricular septal wall motion is normal. The left ventricular diastolic function is abnormal. Right Ventricle Right ventricular chamber dimension is mildly enlarged. Right ventricular systolic function is normal. Left Atria Left atrial chamber dimension is moderately enlarged. Right Atria Right atrial chamber dimension is moderately enlarged. Aortic Valve The aortic valve is trileaflet. There is no aortic valve sclerosis. There is no aortic valve stenosis. There is mild aortic valve regurgitation. Pulmonic Valve The pulmonic valve is normal. There is no pulmonic valve stenosis. There is moderate pulmonic regurgitation. Mitral Valve The mitral valve has normal leaflets. There is no mitral valve stenosis. There is mild mitral valve regurgitation. Tricuspid Valve The tricuspid valve leaflets are normal. There is no significant tricuspid valve stenosis. There is moderate to severe tricuspid valve regurgitation. Moderate pulmonary hypertension, estimated pulmonary arterial systolic pressure is 49 mmHg. Pericardium/Pleural The pericardium appears normal. There is no pericardial effusion. Inferior Vena Cava Dilated inferior vena cava with <50% collapse upon inspiration consistent with significantly elevated right atrial pressure, 20 mmHg. Aorta The aortic root size at the sinus of Valsalva is normal. The prox ascending aorta size is normal. Left Ventricular Outflow Tract Name Value Normal
--- NOTE | ~2022-10-07 | XR_ITS ---
EXAMINATION: XR chest 1V portable DATE: 10/07/2022 12:00 INDICATION: Shortness of breath. TECHNIQUE: A single frontal view of the chest was obtained. COMPARISON: Chest 2 views 12/12/2020 FINDINGS: There is an interstitial pattern in the lungs, consistent with mild pulmonary edema. Calcif ied pulmonary nodules are consistent with old granulomatous disease. No pleural effusion or pneumotho rax. Cardiomegaly is noted. Median sternotomy wires and mediastinal surgical clips are seen, likely f rom prior coronary artery bypass grafting. There is a closure device at left atrial appendage. IMPRESSION: 1. Mild pulmonary edema. 2. Cardiomegaly. Reviewed, dictated and finalized at location A. R WORKER
--- NOTE | ~2022-10-07 | XR_ITS ---
Portable chest x-ray Comparison: 10/07/2022 Clinical History: Pacemaker placement Findings: Lungs are clear, without focal consolidation or pleural effusion. No pneumothorax. Cardio mediastinal silhouette is stable, status post interval pacemaker placement. Bones and soft tissues ar e unremarkable. Impression: Status post interval pacemaker placement. No pneumothorax. Reviewed, dictated and finalized at location . TIONSHIP BANKER Impression: Status post interval pacemaker placement. No pneumothorax.
--- NOTE | ~2022-10-07 | XR_ITS ---
Portable chest x-ray Comparison: 10/08/2022 Clinical History: Shortness of breath Findings: There is worsening extensive groundglass pulmonary disease, consistent with worsening pulm onary edema. No definite pleural effusions. Cardiomediastinal silhouette is stable, with pacemaker d evice. Bones and soft tissues are unremarkable. Impression: Worsening moderate pulmonary edema pattern. Pacemaker device. Reviewed, dictated and finalized at location . PMENT OPERATOR/LABORER/SUPERVISOR Impression: Worsening moderate pulmonary edema pattern. Pacemaker device.
--- NOTE | ~2022-10-07 | US_ITS ---
Duplex Sonography of the bilateral lower extremities: Indication: Swelling Sagittal and transverse B-mode images as well as color-flow imaging were performed on the right and l eft femoral and popliteal veins. B-mode examination was done without and with compression in the tra nsverse plane. There is good visualization of the bilateral common femoral, proximal profunda femora l, superficial femoral, greater saphenous, and popliteal veins. Normal flow was seen on color-flow im aging. Normal compressibility was demonstrated. Right posterior tibial, peroneal, and gastrocnemius veins in the calf are also patent. Left gastrocne mius and posterior tibial veins are also patent. Left peroneal vein is noncompressible with absence o f flow, compatible with thrombosis. Small right-sided Rosa's cyst noted. Impression: Thrombosis of the left peroneal vein. No other DVT identified. Reviewed, dictated and finalized at [facility]. LING MACHINE OPERATOR Impression: Thrombosis of the left peroneal vein. No other DVT identified.
--- NOTE | 2022-10-07 11:45 | ECG_ITS ---
Measurements Intervals [place] Rate: 36 P: [place]: 0 QRS: -58 QRSD: 158 T: 107 QT: 568 QTc: 443 Interpretive Statements ATRIAL FIBRILLATION WITH SLOW VENTRICULAR RESPONSE LEFT AXIS DEVIATION RIGHT BUNDLE BRANCH BLOCK AND LEFT BUNDLE BRANCH BLOCK INTERMITTENTLY BASELINE ARTIFACT- I, II, III, AVR, AVL, AVF ABNORMAL ECG COMPARED TO ECG 02/01/2020 03:35:06 RIGHT BUNDLE BRANCH BLOCK AND LEFT BUNDLE BRANCH BLOCK INTERMITTENTLY NOW PRESENT Electronically Signed On 10-07-2022 11:56:26 PERFORMANCE MAKEUP ARTIST by Ted Youssef D.O.
[2022-10-07 11:56] LABS: Basophils Absolute Auto 0.1 K/mm3 (0.0-0.1); Basophils Percent Auto 0.5 % (0.2-1.2); Eosinophils Absolute Auto 0.1 K/mm3 (0-0.3); Eosinophils Percent Auto 0.5 % (0-4.4); Hemoglobin 11.4 g/dL (14.0-18.0); Immature Granulocyte Absolute 0.04 K/mm3 (0.00-0.031); Immature Granulocyte Percent A 0.4 % (0-0.5); Lymphocytes Percent Auto 17.2 % (18.3-44.2); Mean Corpuscular HGB Conc 32.6 g/dl (32-36); Mean Corpuscular Hemoglobin 31.3 pg (26-34); Mean Corpuscular Volume 96.2 fl (80-100); Monocytes Absolute Auto 0.8 K/mm3 (0.1-0.6); Monocytes Percent Auto 7.5 % (2.6-8.5); Neutrophils Absolute Auto 7.8 K/mm3 (1.3-6.7); Neutrophils Percent Auto 73.9 % (45.5-73.1); Platelet Count Result 250 k/mm3 (150-375); Red Blood Count 3.64 M/mm3 (4.6-6.20); Red Cell Distribution Width 14.6 % (11.5-14.5); White Blood Count 10.5 K/mm3 (4.5-10.0)
--- NOTE | 2022-10-07 12:08 | ED.GENADULT ---
HPI - General Adult General Chief complaint: Recheck/Abnormal Lab/Rx Stated complaint: low HR Time Seen by Provider: 10/07/22 11:55 History of Present Illness HPI narrative: 82-year-old male with history of CABG, atrial fibrillation and increased generalized weakness for the past 2 months presenting to the emergency department for evaluation of generalized weakness. Patient states that last few months he had increased generalized weakness. Patient states his did pass away approximately 2 weeks ago. Patient did have follow-up with his primary care physician today and was transferred to the emergency room by EMS. Patient does take metoprolol. CABG was in December 2019. Patient follows up with Dr. Fletcher. Related Data Home Medications Medication Instructions Recorded Confirmed acetaminophen 325 mg tablet 650 mg PO Q6H PRN Pain 02/20/20 10/07/22 sennosides 8.6 mg capsule (senna) 8.6 mg PO BID PRN Constipation 05/04/20 10/07/22 fexofenadine 180 mg tablet 180 mg PO DAILY 10/07/22 10/07/22 Allergies Allergy/AdvReac Type Severity Reaction Status Date / Time No Known Allergies Allergy Verified 10/07/22 15:11 Review of Systems Review of Systems: CONSTITUTIONAL: See HPI EYES: Denies visual changes, redness, or discharge. ENT: Denies rhinorrhea, congestion, sore throat, or otalgia. CARDIOVASCULAR: See HPI RESPIRATORY: Denies cough or dyspnea. GASTROINTESTINAL: Denies abdominal pain, nausea, vomiting, or diarrhea. GENITOURINARY: Denies dysuria or hematuria. SKIN: Denies rash or itching. MUSCULOSKELETAL: Denies back pain, joint pain, or myalgia. NEUROLOGIC: Denies headache, numbness, or weakness. [facility] Past Medical History Medical History (Updated 10/07/22 @ 21:22 by Sydnee Lebron PA-C) Allergic rhinitis Anemia Benign prostatic hyperplasia Chronic atrial fibrillation Status post left atrial appendage ligation. Chronic gastroesophageal reflux disease Chronic obstructive pulmonary disease Coronary artery disease Status post 2 vessel bypass in February 2020. Diastolic congestive heart failure Hypertension Mild intermittent asthma Right knee DJD Surgical History Surgical History (Updated 10/07/22 @ 21:18 by Sydnee Lebron PA-C) History of cardiac cath 02/02/2020: 90% Left Main lesion History of cardiac catheterization History of removal of cyst Posterior neck. History of two vessel coronary artery bypass graft (02/2020) Status post ligation of left atrial appendage Family History Family History Mother Family history of cardiovascular disease Hypertension Acute myocardial infarction Father Malignant neoplasm of prostate Family history of Parkinson's disease Social History Social History (Updated 10/07/22 @ 21:19 by Sydnee Lebron PA-C) Social History: Surrogate medical decision maker: Tala Jiang, daughter. Code status: Full code. Smoking packs per day: 20 Smoking cigarettes per day: 400.0 Years smoked: 20 Smoking pack-years: 400.00 Smoking status: Former smoker Tobacco type: cigarettes Second hand tobacco smoke exposure: No Smoking end date: 10/05/91 Alcohol intake: never Drinks per week: 1 Substance use: former Substance use type: does not use Lack of Transportation: No Lack of Food: Never True Current Housing: I Have Housing Concerned About Future Housing: No Difficulty Paying Gas/Electric Bills: No Difficulty Paying for Meds: No Currently Unemployed: No Education: High School Diploma/GED Difficulty w/ Childcare or Family Care: No Additional living arrangements comments: as of September 2022. Lives in independent living age at [facility]. Additional occupation/education comments: Retired from the [employer]. Spiritual care concerns: No Agree to blood products: Yes Exam Narrative: APPEARANCE: Well appearing, no pain, no di
[2022-10-07 12:10] LABS: INR 1.1; Prothrombin Time 14.2 Seconds (11.1-14.7)
--- NOTE | 2022-10-07 12:10 | PC.NURSE ---
EDP at bedside gave VORB for Atropine 0.5mg to be given IVP at this time.
[2022-10-07 12:11] LABS: Partial Thromboplastin Time 31.7 SECONDS (22.3-36.8)
[2022-10-07 12:15] LABS: Alanine Aminotransferase 45 U/L (6-50); Albumin Level 4.1 g/dL (3.5-5.1); Alkaline Phosphatase 78 U/L (38-126); Anion Gap 10 mmol/L (8-16); Aspartate Amino Transferase 29 U/L (17-59); Bilirubin,Total 1.2 mg/dL (0.2-1.3); Blood Urea Nitrogen 24 mg/dL (9-20); Calcium 8.4 mg/dL (8.4-10.2); Carbon Dioxide 23 mmol/L (22-30); Chloride 108 mmol/L (98-107); Estimated CRCL calculation 50 ml/min; Estimated Glomerular Filt Rate > 60; Glucose 109 mg/dL (65-110); Potassium 3.8 mmol/L (3.4-5.0); Sodium 141 mmol/L (137-145)
[2022-10-07] MEDS: ATROPINE SULFATE 1 MG/ML VIAL 0.4 MG IV PUSH (12:15)
[2022-10-07 12:27] LABS: Troponin I 0.021 ng/mL (0.000-0.034)
[2022-10-07] MEDS: ATROPINE SULFATE 1 MG/10 ML SYRINGE IV PUSH (12:46)
[2022-10-07 13:29] LABS: Influenza A QL RT-PCR Negative (Negative); Influenza B QL RT-PCR Negative (Negative); RSV RNA, RT-PCR Negative (Negative); SARS-CoV-2 RNA PCR Negative
--- NOTE | 2022-10-07 14:30 | PM.IMHP ---
H&P: HPI History of Present Illness Date/Time: 10/07/22 14:30 Chief Complaint: Low heart rate. Narrative: This is a very pleasant 82-year-old gentleman with coronary artery disease status post CABG in December 2019, atrial fibrillation status post left atrial appendage ligation on metoprolol, hypertension, hyperlipidemia, diastolic heart failure, GERD, and benign prostatic hyperplasia who presented to the emergency department from Dr. Mancini's office after he was found to have a low heart rate. His unexpectedly several weeks ago and since that time he has felt increasingly weak, fatigued, and he has also been getting lightheaded and short of breath with exertion. With further questioning however it sounds as though this has been occurring longer than that but may have been exacerbated by his 's . He has had a couple of falls in the last 2 weeks which he attributes to mechanical falls (tripping over rugs); he denies syncope and near-syncope. He had appointment with Dr. Mancini today for evaluation of the symptoms and his heart rate was 44 with a blood pressure of 90/50 on arrival to the office. Arrival to the ED he was given atropine without much benefit and he is currently on 5 micrograms of dopamine with improvement in his blood pressure and somewhat and his heart rate. He was also given glucose done as he took his beta-leora this morning and shortly thereafter he had several episodes of vomiting. At the time my evaluation he is resting comfortably and is quite fatigued however he has no other complaints. He denies that he could have accidentally taken extra doses of his beta-leora. He denies syncope and near-syncope. He has not had chest pain, pleuritic pain, or palpitations. He has chronic lower extremity edema which is unchanged. No orthopnea paroxysmal nocturnal dyspnea. No recent cold or flu symptoms. Review of Systems Review of Systems: Twelve systems were reviewed and are negative except for as per HPI. [facility] Past Medical History Medical History (Updated 10/07/22 @ 21:22 by Sydnee Lebron PA-C) Allergic rhinitis Anemia Benign prostatic hyperplasia Chronic atrial fibrillation Status post left atrial appendage ligation. Chronic gastroesophageal reflux disease Chronic obstructive pulmonary disease Coronary artery disease Status post 2 vessel bypass in February 2020. Diastolic congestive heart failure Hypertension Mild intermittent asthma Right knee DJD Surgical History Surgical History (Updated 10/07/22 @ 21:18 by Sydnee Lebron PA-C) History of cardiac cath 02/02/2020: 90% Left Main lesion History of cardiac catheterization History of removal of cyst Posterior neck. History of two vessel coronary artery bypass graft (02/2020) Status post ligation of left atrial appendage Family History Family History Mother Family history of cardiovascular disease Hypertension Acute myocardial infarction Father Malignant neoplasm of prostate Family history of Parkinson's disease Social History Social History (Updated 10/07/22 @ 21:19 by Sydnee Lebron PA-C) Social History: Surrogate medical decision maker: Tala Jiang, daughter. Code status: Full code. Smoking packs per day: 20 Smoking cigarettes per day: 400.0 Years smoked: 20 Smoking pack-years: 400.00 Smoking status: Former smoker Tobacco type: cigarettes Second hand tobacco smoke exposure: No Smoking end date: 10/05/91 Alcohol intake: never Drinks per week: 1 Substance use: former Substance use type: does not use Lack of Transportation: No Lack of Food: Never True Current Housing: I Have Housing Concerned About Future Housing: No Difficulty Paying Gas/Electric Bills: No Difficulty Paying for Meds: No Currently Unemployed: No Education: High School Diploma/GED Difficulty w/ Childcare or Family Care: No A
[2022-10-07] MEDS: DOPamine 400 MG/D5W 250 ML 400 MG/250 ML BAG 7.41 MG IV CONT (14:38)
--- NOTE | 2022-10-07 14:46 | ECG_ITS ---
Measurements Intervals [place] Rate: 40 P: RI: 0 QRS: -42 QRSD: 186 T: 107 QT: 649 QTc: 533 Interpretive Statements ATRIAL FIBRILLATION WITH SLOW VENTRICULAR RESPONSE VENTRICULAR PREMATURE COMPLEXES LEFT AXIS DEVIATION LEFT BUNDLE BRANCH BLOCK BASELINE ARTIFACT- I, II, III, AVR, AVL, AVF ABNORMAL ECG COMPARED TO ECG 10/07/2022 11:45:01 NO SIGNIFICANT CHANGES Electronically Signed On 10-07-2022 16:26:11 SIFTER OPERATOR by Ted Youssef D.O.
[2022-10-07] MEDS: GLUCAGON FOR INJ 1 MG VIAL 3 MG IV PUSH (14:59)
[2022-10-07] MEDS: ONDANSETRON INJ 4 MG/2 ML VIAL IV PUSH (15:12)
--- NOTE | 2022-10-07 15:18 | PM.CNCAR ---
Assessment and Plan Assessment and plan (1) Bradycardia: Code(s): R00.1 - Bradycardia, unspecified Status: Acute (2) Atrial fibrillation: Qualifiers: Atrial fibrillation type: unspecified chronic Qualified Code(s): I48.20 - Chronic atrial fibrillation, unspecified Code(s): I48.91 - Unspecified atrial fibrillation Status: Acute (3) S/P CABG (coronary artery bypass graft): Code(s): Z95.1 - Presence of aortocoronary bypass graft Status: Acute (4) CAD (coronary artery disease): Code(s): I25.10 - Atherosclerotic heart disease of [place] coronary artery without angina pectoris Status: Acute Plan Patient is in slow atrial fibrillation with alternating LBBB and RBBB. Although he is on beta-leora, he is only on 12.5mg. Given the degree of conduction system disease, he will need a permanent pacemaker. Discussed with Dr. Tabor, who agrees. Patient to be NPO at midnight for PPM tomorrow. Will obtain an echo. If LVEF is preserved, then will proceed with PPM. If LVEF is reduced, then he likely will need BI-V device, which we do not do at this institution, which would require transfer to a higher care facility. Continue with Dopamine drip. Avoid all AV nancy blocking agents. Will check TSH. History of Present Illness History of Present Illness Consult date/time: 10/07/22 15:18 Requesting physician: Earl Nunez MD Consult reason: Other (Bradycardia) Reason For Visit: BRADYCARDIA Narrative: We are being consulted for bradycardia. This is a patient of Dr. Fletcher'peace who presented to the ER for evaluation for weakness. He has a history of atrial fibrillation on Metoprolol, CAD s/p CABG, diastolic heart failure, s/p left atrial appendage ligation. He is not on anticoagulation for his atrial fibrillation due to fall risk (was previously on Xarelto but discontinued due to fall risk). Patient found to be bradycardic into the 30s in the ER. EKG shows alternating LBBB and RBBB. Patient reports feeling weak and reports some shortness of breath. No chest pain. Daughters at bedside and report that his baseline heart rate is usually in the 40s. He last took his Metoprolol dose this AM. Denies taking any extra doses. Review of Systems Review of Systems: 12-point ROS obtained. Negative, unless stated in HPI. [facility] Past Medical History Medical History Allergic rhinitis Anemia Atrial fibrillation BPH (benign prostatic hyperplasia) CAD (coronary artery disease) 02/02/2020: Left Main 90% lesion Callus of foot Chest pain Chronic a-fib Chronic gastroesophageal reflux disease CKD (chronic kidney disease) stage 3, GFR 30-59 ml/min COPD (chronic obstructive pulmonary disease) Decreased thyroid stimulating hormone (TSH) level Elevated platelet count Fall HTN (hypertension) Hy ht/kd NOS I-IV w/o hf Leg edema prison (current) use of anticoagulants Mild intermittent asthma Right knee DJD Right knee pain SOB (shortness of breath) Surgical History Surgical History H/O removal of cyst about 2017, from posterior neck, performed at [facility] ([place]) History of cardiac cath 02/02/2020: 90% Left Main lesion S/P CABG (coronary artery bypass graft) Family History Family History Mother Family history of cardiovascular disease Hypertension Acute myocardial infarction Father Malignant neoplasm of prostate Family history of Parkinson's disease Social History Social History Smoking packs per day: 20 Smoking cigarettes per day: 400.0 Years smoked: 20 Smoking pack-years: 400.00 Smoking status: Former smoker Tobacco type: cigarettes Second hand tobacco smoke exposure: No Smoking end date: 10/05/91 Alcohol intake: never Drinks per week: 1
--- NOTE | 2022-10-07 16:11 | PC.NURSE ---
Patient received from ER severely bradycardic running in the 20-40s for HR with complaints of SOB and dizziness. Cardiology was notified, Libia Bland NP arrived to bedside to evaluate patient. Herd Tester, photo lab technician, IMU Director, and Dr. Baxter present. Dopamine GTT initiated. Patient remained symptomatic. Additional orders received from captain/airline pilot and pretzel cooker. Plan for pacemaker placement tomorrow.
[2022-10-07] MEDS: ATORVASTATIN 40 MG TABLET BY MOUTH (23:53)
[2022-10-08] VITALS (22 sets, daily range): BP systolic 112–165; BP diastolic 49–88; PULSE 30–62; RESP 12–18; TEMP 35.7–37.3; O2SAT 90–100
[2022-10-08 05:17] LABS: Hematocrit 36.3 % (42.0-52.0); Hemoglobin 11.8 g/dL (14.0-18.0); Mean Corpuscular HGB Conc 32.5 g/dl (32-36); Mean Corpuscular Hemoglobin 31.4 pg (26-34); Mean Corpuscular Volume 96.5 fl (80-100); Mean Platelet Volume 10.6 fl (7.4-10.4); Platelet Count Result 275 k/mm3 (150-375); Red Blood Count 3.76 M/mm3 (4.6-6.20); Red Cell Distribution Width 14.4 % (11.5-14.5); White Blood Count 12.1 K/mm3 (4.5-10.0)
[2022-10-08 05:24] LABS: Alanine Aminotransferase 45 U/L (6-50); Albumin Level 3.7 g/dL (3.5-5.1); Alkaline Phosphatase 79 U/L (38-126); Anion Gap 7 mmol/L (8-16); Aspartate Amino Transferase 29 U/L (17-59); Bilirubin,Total 1.2 mg/dL (0.2-1.3); Blood Urea Nitrogen 19 mg/dL (9-20); Calcium 8.6 mg/dL (8.4-10.2); Carbon Dioxide 27 mmol/L (22-30); Chloride 105 mmol/L (98-107); Estimated CRCL calculation 60 ml/min; Estimated Glomerular Filt Rate > 60; Glucose 112 mg/dL (65-110); Magnesium 2.1 mg/dL (1.6-2.3); Potassium 3.9 mmol/L (3.4-5.0); Sodium 139 mmol/L (137-145)
[2022-10-08] MEDS: DOPamine 400 MG/D5W 250 ML 400 MG/250 ML BAG 14.81 MG IV CONT (07:39)
[2022-10-08] MEDS: FLUTICASONE/SALMETEROL 115-21 MCG INHALER 1 PUFF 2 PUFF INHALATION ×2 (07:55→20:29)
[2022-10-08] MEDS: PANTOPRAZOLE 40 MG TABLET PO (08:42)
[2022-10-08] MEDS: SERTRALINE HCL 25 MG TABLET PO (08:42)
[2022-10-08] MEDS: POTASSIUM CHLORIDE 20 MEQ TABLET.ER PO (08:42)
[2022-10-08] MEDS: LORATADINE 10 MG TABLET PO (08:42)
[2022-10-08] MEDS: FINASTERIDE 5 MG TABLET PO (08:42)
--- NOTE | 2022-10-08 09:07 | WPDHPUPDATE1 ---
History and Physical Update Update Date/Time: 10/08/22 09:07 Pt w/ persistent atrial fib and h/o mild bradycardia, admitted with progressive weakness. He was found to have severe bradycardia HR in 30's w/ alternating RBBB and LBBB. Permanent single-chamber pacemaker implant is recommended. History and Physical has been reviewed, including an updated exam of the patient. Venous doppler today showed a thrombosis of the left peroneal vein. Otherwise there are NO changes in the patient's condition. Risks, benefits, and alternatives have been discussed w. pt and his daughters, and questions answered. Reviewed risks of pacemaker implant with patient. These include breathing problems, allergic reactions, bleeding, infection, pneumothorax, cardiac puncture, need for unanticipated surgery, lead dislodgement among others. Patient agrees to proceed with procedure.
--- NOTE | 2022-10-08 11:32 | PM.OP ---
Procedure Note - Brief Procedure Note - Brief Date of procedure: 10/08/22 Pre-op diagnosis: BRADYCARDIA Persistent atrial fibrillation with symptomatic braycardia Post-op diagnosis: Other (S/P VVI pacemaker) Procedure performed: Conscous sedation Venogram Placement of a permanent single lead transvenous pacemaker Description of procedure: Uneventful pacemaker implant Surgeon: Delfina Tabor MD Complications: No immediate complications Condition: Stable Disposition: Floor Findings: Pacemaker -dependent at the completion of the procedure.
--- NOTE | 2022-10-08 11:41 | ECG_ITS ---
Measurements Intervals Crum Rate: 59 P: [place]: 0 QRS: -65 QRSD: 209 T: 111 QT: 561 QTc: 560 Interpretive Statements ELECTRONIC VENTRICULAR PACEMAKER BASELINE ARTIFACT- I, II, AVR NO FURTHER INTERPRETATION IS POSSIBLE ATYPICAL ECG COMPARED TO ECG 10/07/2022 14:50:31 ELECTRONIC VENTRICULAR PACEMAKER NOW PRESENT Electronically Signed On 10-08-2022 12:54:38 CAGER OPERATOR by Ted Youssef D.O.
--- NOTE | 2022-10-08 14:49 | W.PM.PROC2 ---
Procedure Note - Detailed Date of Procedure 10/08/22 Pre-op Diagnosis Persistent atrial fibrillation with symptomatic bradycardia Post-op Diagnosis Other (Status post VVI pacemaker) Procedure Performed PROCEDURE PERFORMED: Conscious sedation Venogram Placement of a permanent dual-chamber pacemaker Surgeon Delfina Tabor MD Anesthesia Local (With conscious sedation) Indications Elderly male with progressive weakness and fatigue, admitted with severe bradycardia, known persistent atrial fibrillation, alternating right and left BBB. Heart rates in the 30s. On dopamine. Findings The patient quickly became pacemaker dependent. Pt also noted to have a peroneal DVT; low risk being BTK but prob best to AC for 3 months w/ NOAC. Rec SCDs now, start NOAC on Thursday to avoid bleeding fr pacer implant. Description of Procedure SITE: Left prepectoral area MEDICATIONS GIVEN IN DIRECTOR OF DATABASE MARKETING: Ancef 1 gram IV piggyback CONSCIOUS SEDATION: Assessment: The patient has no history of anesthesia problems. The patient's oropharynx is clear. The patient was deemed to be a good candidate for conscious sedation. The patient had continuous hemodynamic monitoring during the procedure. Start time: 10:24 a.m. Completion time: 11:23 a.m. Total conscious sedation time: 59 minutes Medications: Versed 1 mg, fentanyl 50 mcg IV push Trained observer: Mela Cortes RN Outcome: The patient tolerated the procedure well with no complications. PROCEDURE: After informed consent , the patient was brought to the powerhouse laborer and the left prepectoral area was prepped and draped in usual fashion . The patient received preop antibiotic with Ancef 1 gm IVP, and conscious sedation . The left prepectoral area was anesthetized with lidocaine . A venogram was performed showing the course of the left subclavian vein,which was patent. Next a skin incision was made and carried down to the prepectoral fascia. Hemostasis was obtained using electrocautery . The pacer pocket was formed. There was a bleeding vessel on the chest wall that did not stop w/ cautery, so a purse string suture was applied w/ 2-0 vicryl suture w/ success. The left subclavian vein was easily accessed with the micropuncture technique, and a J-tipped guide wire was passed into the right atrium under fluoroscopic guidance. The needle was withdrawn. A 7 [place] safety sheath was passed over the lateral wire, the wire withdrawn, and the right ventricular lead was passed into the inferior vena cava under fluoroscopic guidance . The lead was then prolapsed through the tricuspid valve and advanced into the right ventricular apex. When suitable sensing and pacing thresholds were obtained, it was screwed into place. No extra cardiac stimulation was obtained using 10 volts. The sheath was withdrawn. Dom lead was secured to the prepectoral fascia using 2-0 silk over its sleeve. The pocket was cleansed with antibiotic containing solution . The pulse generator was introduced into the operative field, and the lead was secured into the generator . A gentle tug showed the lead was securely fastened. The device was introduced into the pocket. The subcutaneous tissues were closed in a double layer fashion with interrupted sutures, using 2-0 Vicryl suture , and the skin was closed in a continuous fashion using 4-0 Vicryl suture in a continuous fashion. The area was cleansed, and an Aquacel dressing was applied . The patient tolerated the procedure well with no complications. MEASURED DATA: Right ventricular lead: P-wave sensing 7.2 volts, impedance 553 Ohms, threshold 0.75 at 0.4 milliseconds PROGRAMMING: VVIR 60-120 Implants PACEMAKER INFORMATION: Pulse generator: Medtronic model W1SR 01, serial RNA [id number] G Right ventricular lead: Medtronic model 5076-58, serial PJ and [id number] Estimated Blood Loss 10 Urine Output 150 Complications No immediate complications Condition Stable
--- NOTE | 2022-10-08 15:33 | PM.IMPN ---
Progress Note: A&P Assessment and Plan (1) Symptomatic bradycardia: Code(s): R00.1 - Bradycardia, unspecified Status: Acute Assessment and Plan: -The patient presented to the ED from Dr. Mancini's office for evaluation of bradycardia and relative hypotension after presenting with complaints of fatigue, weakness, and shortness of breath for several weeks. -He has been on a beta-leora since his bypass several years ago but is my understanding that the dose was decreased not long ago due to possible bradycardia; he is now taking only 12.5 milligrams per day. -He took metoprolol yesterday and he was given glucagon which unfortunately caused him to have several episodes of vomiting. -consulted cardiology who placed a permanent pacemaker today -also on dopamine drip per cardiology (2) DVT (deep venous thrombosis): Code(s): I82.409 - Acute embolism and thrombosis of unspecified deep veins of unspecified lower extremity Status: Acute Assessment and Plan: -L peroneal DVT noted on venous doppler -discussed with Dr. Tabor who recommends holding anti coagulation x48 hours due to having pacemaker placed today. Per Dr. Tabor it is a lower risk location. Discussed this with patient and son in law at bedside who are in agreement. -will avoid SCD to avoid risk of dislodging (3) Chronic atrial fibrillation: Code(s): I48.20 - Chronic atrial fibrillation, unspecified Status: Acute (4) Hypertension: Code(s): I10 - Essential (primary) hypertension Status: Acute (5) Coronary artery disease: Code(s): I25.10 - Atherosclerotic heart disease of [place] coronary artery without angina pectoris Status: Acute (6) Diastolic congestive heart failure: Code(s): I50.30 - Unspecified diastolic (congestive) heart failure Status: Acute (7) Chronic obstructive pulmonary disease: Code(s): J44.9 - Chronic obstructive pulmonary disease, unspecified Status: Acute Plan Blood pressures were reviewed and they have been stable. Labs were personally reviewed and no significant abnormalities or changes from baseline noted. Chest x-ray was personally reviewed and shows cardiomegaly with small amount of pulmonary edema. Thus far he is stable regarding his volume status which will be monitored closely with daily weights and strict I/O. No acute issues with regards to COPD. His home medications will be reviewed and resumed as appropriate. Subjective Date/time seen: 10/08/22 15:33 Interval history: 82-year-old gentleman with coronary artery disease status post CABG in December 2019, atrial fibrillation status post left atrial appendage ligation on metoprolol, hypertension, hyperlipidemia, diastolic heart failure, GERD, and benign prostatic hyperplasia, admitted for bradycardia. He underwent pacemaker placement today. I saw him shortly after procedure. He is feeling well. No cp/sob. Review of Systems Review of Systems: All systems reviewed & are unremarkable except as noted in HPI and below Exam Narrative: General: Nontoxic-appearing male sitting up in bed in no acute distress. Weight: 79 kilograms. BMI: 23.6. HEENT: Wearing hearing aids. PERRL, EOMI. Sclera anicteric. Oral mucosa moist. Neck: Supple. No JVD. Respiratory: Respirations non labored, no respiratory distress Cardiovascular: rate in the 60s, large bandage in place over new pacemaker site Gastrointestinal: Abdomen is soft, nontender, and nondistended with positive bowel sounds. Skin: Warm and dry. No rash or lesions on limited exam. Extremities: No cyanosis or clubbing. 1+ bilateral lower extremity edema, right greater than left (chronic per patient report). Radial and pedal pulses intact. Neurological: Alert. Cranial nerves 2-12 are grossly intact. No gross focal deficits to casual conversation. Psychiatric: Pleasant and cooperative with normal mood and affect. Judgment and insight in
[2022-10-08] MEDS: ATORVASTATIN 40 MG TABLET BY MOUTH (20:47)
[2022-10-09] VITALS (22 sets, daily range): BP systolic 151–178; BP diastolic 68–86; PULSE 53–89; RESP 18–24; TEMP 36–37.1; O2SAT 90–94
[2022-10-09 05:10] LABS: Basophils Percent Auto 0.2 % (0.2-1.2); Eosinophils Percent Auto 0.2 % (0-4.4); Hematocrit 36.7 % (42.0-52.0); Hemoglobin 11.7 g/dL (14.0-18.0); Immature Granulocyte Absolute 0.08 K/mm3 (0.00-0.031); Immature Granulocyte Percent A 0.6 % (0-0.5); Lymphocytes Absolute Auto 0.78 K/mm3 (0.9-3.2); Mean Corpuscular HGB Conc 31.9 g/dl (32-36); Mean Corpuscular Hemoglobin 31.3 pg (26-34); Mean Corpuscular Volume 98.1 fl (80-100); Mean Platelet Volume 10.5 fl (7.4-10.4); Monocytes Absolute Auto 1.1 K/mm3 (0.1-0.6); Monocytes Percent Auto 8.5 % (2.6-8.5); Neutrophils Absolute Auto 10.9 K/mm3 (1.3-6.7); Neutrophils Percent Auto 84.5 % (45.5-73.1); Platelet Count Result 256 k/mm3 (150-375); Red Blood Count 3.74 M/mm3 (4.6-6.20); Red Cell Distribution Width 14.6 % (11.5-14.5); White Blood Count 12.9 K/mm3 (4.5-10.0)
[2022-10-09 05:23] LABS: Anion Gap 6 mmol/L (8-16); Blood Urea Nitrogen 20 mg/dL (9-20); Calcium 8.2 mg/dL (8.4-10.2); Carbon Dioxide 27 mmol/L (22-30); Chloride 108 mmol/L (98-107); Estimated CRCL calculation 52 ml/min; Estimated Glomerular Filt Rate > 60; Glucose 129 mg/dL (65-110); Potassium 3.6 mmol/L (3.4-5.0); Sodium 141 mmol/L (137-145)
--- NOTE | 2022-10-09 07:44 | PM.IMPN ---
Progress Note: A&P Assessment and Plan (1) Symptomatic bradycardia: Code(s): R00.1 - Bradycardia, unspecified Status: Acute Assessment and Plan: -The patient presented to the ED from Dr. Mancini's office for evaluation of bradycardia and relative hypotension after presenting with complaints of fatigue, weakness, and shortness of breath for several weeks. -He has been on a beta-leora since his bypass several years ago but is my understanding that the dose was decreased not long ago due to possible bradycardia; he is now taking only 12.5 milligrams per day. -He took metoprolol a day PRA and he was given glucagon which unfortunately caused him to have several episodes of vomiting. -consulted cardiology who placed a permanent pacemaker today -also on dopamine drip per cardiology (2) DVT (deep venous thrombosis): Code(s): I82.409 - Acute embolism and thrombosis of unspecified deep veins of unspecified lower extremity Status: Acute Assessment and Plan: -L peroneal DVT noted on venous doppler -discussed with Dr. Tabor who recommends holding anti coagulation x48 hours due to having pacemaker placement. Per Dr. Tabor it is a lower risk location. Discussed this with patient and son in law at bedside who are in agreement. -will avoid SCD to avoid risk of dislodging if PE may need to start anticoagulation, will do heparin gtt in that case. (3) Chronic atrial fibrillation: Code(s): I48.20 - Chronic atrial fibrillation, unspecified Status: Acute (4) Hypertension: Code(s): I10 - Essential (primary) hypertension Status: Acute (5) Coronary artery disease: Code(s): I25.10 - Atherosclerotic heart disease of [place] coronary artery without angina pectoris Status: Acute (6) Diastolic congestive heart failure: Code(s): I50.30 - Unspecified diastolic (congestive) heart failure Status: Acute Assessment and Plan: possilbe chf exacerbation, will check cxr (7) Chronic obstructive pulmonary disease: Code(s): J44.9 - Chronic obstructive pulmonary disease, unspecified Status: Acute Assessment and Plan: not wheezing,will check cxr Plan hypoxia: noted since post op. currently in resp distress as well. will check abg, cxr stat. may need to rule out pe, due to recent clot ConfusioN: overnight. could be related to hypoxia, rule out hypercapnia. will get ct head when stable. continue with sitter. Subjective Date/time seen: 10/09/22 07:44 Interval history: 82-year-old gentleman with coronary artery disease status post CABG in December 2019, atrial fibrillation status post left atrial appendage ligation on metoprolol, hypertension, hyperlipidemia, diastolic heart failure, GERD, and benign prostatic hyperplasia, admitted for bradycardia. overnight confused, needed sitter. he reports no new comaplitns and follows some commands, visibly sob. Review of Systems Review of Systems: All systems reviewed & are unremarkable except as noted in HPI and below Exam Narrative: General: ill looking male in mild distress, confused, resp distress HEENT: Wearing hearing aids. PERRL, EOMI. Sclera anicteric. Oral mucosa moist. Neck: Supple. No JVD. Respiratory: conversational dyspnea noted, diminished breath sounds bilaterally Cardiovascular: rate in the 60s, large bandage in place over new pacemaker site Gastrointestinal: Abdomen is soft, nontender, and nondistended with positive bowel sounds. Skin: Warm and dry. No rash or lesions on limited exam. Extremities: No cyanosis or clubbing. no edema. Radial and pedal pulses intact. Neurological: Alert oriented to person, not to time or place, following commands, Cranial nerves 2-12 are grossly intact. No gross focal deficits to casual conversation. Psychiatric: pleasant and cooperative Objective Data Vital Signs Vital Signs: Vital Signs - 24 hr 10/08/22 08:00 10/08/22 08:00 10/08
[2022-10-09 08:03] LABS: Alveolar/Arterial O2 Gradient 93.1 mmHg; Base Excess ABG -3.6 mEq/l (+/-2.0); Fractional Inspired Oxygen 28 %; HCO3 ABG 21.8 mEq/l (22.0-26.0); Oxygen Content ABG 15.8 %vol (16.0-22.0); Oxygen Saturation ABG 89.2 % (95.0-100.0); PCO2 ABG 40.6 mmHg (35.0-45.0); PO2 ABG 58.6 mmHg (80.0-100.0); PO2 FiO2 Ratio Arterial Blood 2.09 %; Total Hemoglobin 12.9 g/dL (12.0-18.0); pH ABG 7.348 (7.350-7.450)
[2022-10-09 08:04] LABS: Oxyhemoglobin 87.2 % THb (90.0-100.0)
[2022-10-09 08:05] LABS: Device NASAL CANNULA; Site Drawn LEFT BRACHIAL
[2022-10-09] MEDS: ALBUTEROL SULFATE NEB 2.5 MG/3 ML INH INHALATION ×3 (08:34→20:15)
[2022-10-09] MEDS: IPRATROPIUM BR 0.02% INH SOLN 0.5 MG/2.5 ML VIAL INHALATION ×3 (08:34→20:15)
[2022-10-09] MEDS: FINASTERIDE 5 MG TABLET PO (08:40)
[2022-10-09] MEDS: FUROSEMIDE 40 MG TABLET PO (08:40)
[2022-10-09] MEDS: PANTOPRAZOLE 40 MG TABLET PO (08:40)
[2022-10-09] MEDS: FUROSEMIDE INJ 40 MG/4 ML VIAL IV PUSH (08:40)
[2022-10-09] MEDS: LORATADINE 10 MG TABLET PO (08:41)
[2022-10-09] MEDS: SERTRALINE HCL 25 MG TABLET PO (08:41)
[2022-10-09] MEDS: POTASSIUM CHLORIDE 20 MEQ TABLET.ER PO (08:41)
[2022-10-09 08:45] LABS: NT Pro B Type Natriuretic Pept 8600 pg/mL (5-100)
--- NOTE | 2022-10-09 09:00 | PCRCNOTE ---
PT. UNABLE TO DO MDI AT THIS TIME.
--- NOTE | 2022-10-09 11:05 | P.CDI_ITS ---
CDI Query Clarified Diagnosis Clarified Diagnosis: BNP elevated on 10/09/22 lab work. Pt with documented history of CHF. CHF noted on assessment and plan. PT receiving furosemide as an inpatient. Chest X-Ray from 10/09/22 shows pulmonary edema. Please specify type and acuity of heart failure if known. * Acute * Chronic * Acute on Chronic * Unknown * Systolic * Diastolic * Combined Systolic and Diastolic * Unknown <Ailyn Melchor RN - Last Filed: 10/09/22 11:08> Provider Comments acute on chronic diastolic congestive heart failure <Ross Schwarz MD - Last Filed: 10/15/22 07:29>
[2022-10-09 11:49] LABS: Glucose Point of Care 170 mg/dl (65-105)
--- NOTE | 2022-10-09 12:44 | PM.PNCARD ---
Progress Note: A&P Assessment and Plan (1) Bradycardia: Code(s): R00.1 - Bradycardia, unspecified Status: Acute (2) Atrial fibrillation: Qualifiers: Atrial fibrillation type: unspecified chronic Qualified Code(s): I48.20 - Chronic atrial fibrillation, unspecified Code(s): I48.91 - Unspecified atrial fibrillation Status: Acute (3) S/P CABG (coronary artery bypass graft): Code(s): Z95.1 - Presence of aortocoronary bypass graft Status: Acute (4) CAD (coronary artery disease): Code(s): I25.10 - Atherosclerotic heart disease of [place] coronary artery without angina pectoris Status: Acute Plan S/p PPM placement yesterday. Uncomplicated procedure. CXR this morning looks OK, no pneumo. Does have some worsening pulmonary edema. He was given an extra dose of IV lasix this morning. Continue with pacemaker precautions Will start DOAC tomorrow for peroneal DVT if no bleeding at PPM insertion site. Subjective Date/time seen: 10/09/22 12:44 Interval history: 82-year-old gentleman with coronary artery disease status post CABG in December 2019, atrial fibrillation status post left atrial appendage ligation on metoprolol, hypertension, hyperlipidemia, diastolic heart failure, GERD, and benign prostatic hyperplasia, admitted for bradycardia. S/p PPM placement yesterday. He is confused this morning and is complaining of dizziness. Also has some shortness of breath. Exam Const: General: no acute distress Orientation/consciousness: No oriented to place, oriented to time and confusion HENMT: Mouth: Yes moist mucous membranes Eyes: General: appearance normal, both eyes and all related structures Sclera: sclerae normal Neck: Neck: supple Chest: Other: Pacemaker dressing clean, dry, and intact. No swelling or hematoma surrounding dressing Resp: Effort & Inspection: normal respiratory effort Auscultation: clear to auscultation bilaterally Cardio: Rate: regular rate Rhythm: regular rhythm Heart sounds: no murmurs Skin: General skin exam: normal color Neuro: General: No patient oriented x3 Speech: normal speech Extrem: General: normal to inspection Psych: Mental Status: mental status grossly abnormal Affect: normal affect Objective Data Vital Signs Vital Signs: Vital Signs - 24 hr 10/08/22 12:45 10/08/22 13:26 10/08/22 14:06 Temperature 35.7 C L 36.1 C L Pulse Rate 62 60 60 Respiratory Rate 16 14 12 Blood Pressure 154/88 H 135/72 112/49 L Pulse Oximetry 100 95 94 Oxygen Delivery Room Air Oxygen Flow Rate 10/08/22 17:26 10/08/22 14:00 10/08/22 16:00 Temperature 36.4 C Pulse Rate 60 60 60 Respiratory Rate 14 Blood Pressure 138/73 Pulse Oximetry 93 Oxygen Delivery Oxygen Flow Rate 10/08/22 18:00 10/08/22 16:00 10/08/22 20:35 Temperature 36.4 C Pulse Rate 60 60 58 L Respiratory Rate 14 18 Blood Pressure 140/60 Pulse Oximetry 93 90 Oxygen Delivery Room Air Oxygen Flow Rate 10/08/22 20:00 10/08/22 20:00 10/08/22 22:00 Temperature Pulse Rate 60 60 60 Respiratory Rate 14 Blood Pressure Pulse Oximetry 91 Oxygen Delivery Room Air Oxygen Flow Rate 10/08/22 23:21 10/09/22 00:00 10/09/22 00:00 Temperature 36.4 C Pulse Rate 61 61 60 Respiratory Rate 18 Blood Pressure 149/64 H Pulse Oximetry 92 94 Oxygen Delivery Room Air Oxygen Flow Rate 10/09/22 02:00 10/09/22 04:00 10/09/22 04:00 Temperature 36.2 C L Pulse Rate 60 60 78 Respiratory Rate 20 Blood Pressure 154/71 H Pulse Oximetry 91 94 Oxygen Delivery Room Air Oxygen Flow Rate 10/09/22 04:00 10/09/22 05:14 10/09/22 05:33 Temperature Pulse Rate 60 60 63 Respiratory Rate Blood Pressure Pulse Oximetry 93 Oxygen Delivery Nasal Cannula Oxygen Flow Rate 3 10/09/22 08:35 10/09/22 08:42 10/09/22 08:45 Temperature Pulse Rate 64 60 Respiratory Rate 20 20 Blood Pressu
[2022-10-09] MEDS: ONDANSETRON INJ 4 MG/2 ML VIAL IV PUSH (18:08)
[2022-10-09] MEDS: FUROSEMIDE INJ 40 MG/4 ML VIAL 20 MG IM (18:09)
--- NOTE | 2022-10-09 18:30 | PC.NURSE ---
Patient transfer received from IMU at 1830.
[2022-10-09] MEDS: FLUTICASONE/SALMETEROL 115-21 MCG INHALER 1 PUFF 2 PUFF INHALATION (20:15)
[2022-10-09] MEDS: ATORVASTATIN 40 MG TABLET BY MOUTH (20:45)
[2022-10-09] MEDS: ACETAMINOPHEN 325 MG TABLET 650 MG PO (20:47)
[2022-10-09] MEDS: traMADol HCL (*CRX) 50 MG TABLET PO (22:13)
[2022-10-10] VITALS (23 sets, daily range): BP systolic 114–155; BP diastolic 62–82; PULSE 59–66; RESP 16–20; TEMP 36.4–36.6; O2SAT 85–97
[2022-10-10] MEDS: ACETAMINOPHEN 325 MG TABLET 650 MG PO (02:00)
[2022-10-10] MEDS: IPRATROPIUM BR 0.02% INH SOLN 0.5 MG/2.5 ML VIAL INHALATION ×4 (03:15→19:23)
[2022-10-10] MEDS: ALBUTEROL SULFATE NEB 2.5 MG/3 ML INH INHALATION ×4 (03:15→19:23)
[2022-10-10 08:30] LABS: Basophils Percent Auto 0.1 % (0.2-1.2); Eosinophils Percent Auto 0.1 % (0-4.4); Hematocrit 37.4 % (42.0-52.0); Hemoglobin 12.1 g/dL (14.0-18.0); Immature Granulocyte Absolute 0.07 K/mm3 (0.00-0.031); Immature Granulocyte Percent A 0.5 % (0-0.5); Lymphocytes Absolute Auto 1.02 K/mm3 (0.9-3.2); Lymphocytes Percent Auto 6.9 % (18.3-44.2); Mean Corpuscular HGB Conc 32.4 g/dl (32-36); Mean Corpuscular Hemoglobin 31.5 pg (26-34); Mean Corpuscular Volume 97.4 fl (80-100); Mean Platelet Volume 10.6 fl (7.4-10.4); Neutrophils Absolute Auto 12.6 K/mm3 (1.3-6.7); Neutrophils Percent Auto 85.4 % (45.5-73.1); Platelet Count Result 258 k/mm3 (150-375); Red Blood Count 3.84 M/mm3 (4.6-6.20); Red Cell Distribution Width 14.6 % (11.5-14.5); White Blood Count 14.8 K/mm3 (4.5-10.0)
[2022-10-10] MEDS: FLUTICASONE/SALMETEROL 115-21 MCG INHALER 1 PUFF 2 PUFF INHALATION ×2 (08:40→19:23)
[2022-10-10 08:44] LABS: Alanine Aminotransferase 34 U/L (6-50); Albumin Level 3.7 g/dL (3.5-5.1); Alkaline Phosphatase 79 U/L (38-126); Anion Gap 7 mmol/L (8-16); Aspartate Amino Transferase 37 U/L (17-59); Bilirubin,Total 1.5 mg/dL (0.2-1.3); Blood Urea Nitrogen 27 mg/dL (9-20); Calcium 8.6 mg/dL (8.4-10.2); Carbon Dioxide 30 mmol/L (22-30); Chloride 105 mmol/L (98-107); Estimated CRCL calculation 46 ml/min; Estimated Glomerular Filt Rate > 60; Glucose 127 mg/dL (65-110); Magnesium 2.2 mg/dL (1.6-2.3); Potassium 3.7 mmol/L (3.4-5.0); Sodium 142 mmol/L (137-145)
[2022-10-10] MEDS: FINASTERIDE 5 MG TABLET PO (09:01)
[2022-10-10] MEDS: FUROSEMIDE 40 MG TABLET PO (09:01)
[2022-10-10] MEDS: SERTRALINE HCL 25 MG TABLET PO (09:01)
[2022-10-10] MEDS: LORATADINE 10 MG TABLET PO (09:01)
[2022-10-10] MEDS: PANTOPRAZOLE 40 MG TABLET PO (09:01)
[2022-10-10] MEDS: POTASSIUM CHLORIDE 20 MEQ TABLET.ER PO (09:01)
--- NOTE | 2022-10-10 10:06 | PCOTNOTE ---
Spoke with Hospitalist Inessa Jett regarding pt. bedrest orders, referred to Libia Ca in Cardiology who stated pt. allowed to participate in out of bed activity while maintaining pacemaker precautions. Lanny unable to take off orders at this time, alerted nurse to changes.
--- NOTE | 2022-10-10 10:15 | PCPTNOTE ---
chart review at 9:30, pt has orders for bed rest. PT evaluation not completed at this time;
--- NOTE | 2022-10-10 16:29 | PM.PNCARD ---
Progress Note: A&P Assessment and Plan (1) Bradycardia: Code(s): R00.1 - Bradycardia, unspecified Status: Acute (2) Atrial fibrillation: Qualifiers: Atrial fibrillation type: unspecified chronic Qualified Code(s): I48.20 - Chronic atrial fibrillation, unspecified Code(s): I48.91 - Unspecified atrial fibrillation Status: Acute (3) S/P CABG (coronary artery bypass graft): Code(s): Z95.1 - Presence of aortocoronary bypass graft Status: Acute (4) CAD (coronary artery disease): Code(s): I25.10 - Atherosclerotic heart disease of [place] coronary artery without angina pectoris Status: Acute Plan S/p PPM placement 10/08/22. Uncomplicated procedure. Stable from a cardiac perspective. Continue with pacemaker precautions Started on DOAC for peroneal DVT. Questionable candidate for snf a/c because of frequent falls. Possible. d/c tomorrow. Subjective Date/time seen: 10/10/22 16:29 Interval history: 82-year-old gentleman with coronary artery disease status post CABG in December 2019, atrial fibrillation status post left atrial appendage ligation on metoprolol, hypertension, hyperlipidemia, diastolic heart failure, GERD, and benign prostatic hyperplasia, admitted for bradycardia. S/p PPM placement yesterday. He is confused this morning and is complaining of dizziness. Also has some shortness of breath. Date of service 10/10/22: He's much better today in regards to his mental status, no confusion. No chest pain or shortness of breath. Exam Const: General: no acute distress Orientation/consciousness: patient oriented x3 and No confusion HENMT: Mouth: Yes moist mucous membranes Eyes: General: appearance normal, both eyes and all related structures Sclera: sclerae normal Neck: Neck: supple Chest: Other: Pacemaker dressing clean, dry, and intact. No swelling or hematoma surrounding dressing Resp: Effort & Inspection: normal respiratory effort Auscultation: clear to auscultation bilaterally Cardio: Rate: regular rate Rhythm: regular rhythm Heart sounds: no murmurs Skin: General skin exam: normal color Neuro: General: No oriented to place, oriented to time, No patient oriented x3 and confusion Speech: normal speech Extrem: General: normal to inspection Psych: Mental Status: mental status grossly normal Affect: normal affect Objective Data Vital Signs Vital Signs: Vital Signs - 24 hr 10/09/22 18:42 10/09/22 20:00 10/09/22 20:00 Temperature Pulse Rate 65 61 Respiratory Rate Blood Pressure Pulse Oximetry 94 Oxygen Delivery Nasal Cannula Oxygen Flow Rate 3 10/09/22 22:00 10/09/22 20:17 10/09/22 20:15 Temperature 36.6 C Pulse Rate 66 61 Respiratory Rate 18 18 Blood Pressure 159/86 H Pulse Oximetry 91 91 Oxygen Delivery Nasal Cannula Oxygen Flow Rate 2 10/09/22 20:27 10/10/22 00:00 10/10/22 00:00 Temperature 36.6 C Pulse Rate 62 62 66 Respiratory Rate 18 16 Blood Pressure 155/82 H Pulse Oximetry 93 Oxygen Delivery Oxygen Flow Rate 10/10/22 04:00 10/10/22 03:16 10/10/22 03:22 Temperature Pulse Rate 66 66 66 Respiratory Rate 18 18 Blood Pressure Pulse Oximetry Oxygen Delivery Oxygen Flow Rate 10/10/22 06:50 10/10/22 10:00 10/10/22 10:33 Temperature 36.5 C 36.5 C Pulse Rate 60 60 Respiratory Rate 20 19 Blood Pressure 144/66 H 142/66 H Pulse Oximetry 91 91 Oxygen Delivery Nasal Cannula Oxygen Flow Rate 3 10/10/22 08:21 10/10/22 08:21 10/10/22 08:40 Temperature Pulse Rate 59 L 59 L 59 L Respiratory Rate 16 16 16 Blood Pressure Pulse Oximetry 91 Oxygen Delivery Nasal Cannula Oxygen Flow Rate 4 10/10/22 09:02 10/10/22 08:00 10/10/22 12:04 Temperature Pulse Rate 62 61 Respiratory Rate Blood Pressure Pulse Oximetry 92 Oxygen Delivery Nasal Cannula Oxygen Flow Rate 4 10/10/22 13:14 10/10/22 14:0
--- NOTE | 2022-10-10 17:18 | PM.IMPN ---
Progress Note: A&P Assessment and Plan (1) Symptomatic bradycardia: Code(s): R00.1 - Bradycardia, unspecified Status: Acute Assessment and Plan: -The patient presented to the ED from Dr. Mancini's office for evaluation of bradycardia and relative hypotension after presenting with complaints of fatigue, weakness, and shortness of breath for several weeks. had been on low-dose beta-leora - underwent placement of permanent dual-chamber pacemaker on 10/08/2022. Tolerated this procedure well - continue with left arm sling to avoid raising the left arm - appreciate cardiology consultation (2) DVT (deep venous thrombosis): Code(s): I82.409 - Acute embolism and thrombosis of unspecified deep veins of unspecified lower extremity Status: Acute Assessment and Plan: -L peroneal DVT noted on venous doppler -anticoagulation held x48 hours to allow for pacemaker placement. - will begin Xarelto today as no evidence of bleeding at PPM insertion site. 15 mg BID x21 days then 20 mg daily. - pt previously on Xarelto, discontinued due to fall risk. Given acute DVT, anticoagulation is warranted and will make every effort to minimize fall risk. Implement fall precautions. Pt and family agreeable to proceed with AC. (3) Diastolic congestive heart failure: Code(s): I50.30 - Unspecified diastolic (congestive) heart failure Status: Chronic Assessment and Plan: CXR revealed moderate pulmonary edema. BNP 8600 Patient given 1 extra dose of Lasix 20 mg IM yesterday Continue with furosemide 40 mg daily Monitor volume status with I&O and daily weights (4) Chronic atrial fibrillation: Code(s): I48.20 - Chronic atrial fibrillation, unspecified Status: Chronic Assessment and Plan: Monitor on telemetry (5) Hypertension: Code(s): I10 - Essential (primary) hypertension Status: Acute Assessment and Plan: blood pressure has been stable. Monitor trend (6) Coronary artery disease: Code(s): I25.10 - Atherosclerotic heart disease of [place] coronary artery without angina pectoris Status: Chronic Assessment and Plan: chronic, no acute issues. Patient on home aspirin, on hold at this time. Resume per Cardiology recommendations (7) Chronic obstructive pulmonary disease: Code(s): J44.9 - Chronic obstructive pulmonary disease, unspecified Status: Acute Assessment and Plan: not in acute exacerbation. Continue nebs q6h Continue home symbicort Subjective Date/time seen: 10/10/22 17:18 Interval history: date of service: 10/10/2022 Derrell Santos is an 82-year-old male who is seen in follow-up after pacemaker placement. Patient is doing well today. He has no pain and specifically denies chest pain or any pain at site of pacemaker insertion. He does endorse some mild shortness of breath. His daughter noticed that last night he was gurgling, though she states this has resolved today. The patient denies wheezing. He does endorse cough productive of sticky, white phlegm. Denies fever or chills. No nausea, vomiting, abdominal pain. he had a bowel movement last night. He is tolerating his diet. Daughter notes some occasional confusion but states that he seems overall improved compared to yesterday. Review of Systems Review of Systems: All systems reviewed & are unremarkable except as noted in HPI and below Exam Narrative: General: Well-nourished, well-appearing 82-year-old male, sitting up in a chair, comfortable, NARD Neuro: awake, alert and oriented x4, speech clear, no focal neuro deficits noted HEENMT: normocephalic, atraumatic, EOMI, sclerae anicteric Chest: left anterior chest wall wrapped and dressed with evidence of recent pacemaker placement Respiratory: clear to auscultation bilaterally, nonlabored breathing Cardio: regular rate, regular rhythm with S1-S2 Abdomen: nondistend
[2022-10-10] MEDS: ATORVASTATIN 40 MG TABLET BY MOUTH (20:36)
[2022-10-11] VITALS (19 sets, daily range): BP systolic 108–146; BP diastolic 56–80; PULSE 55–77; RESP 16–18; TEMP 36.2–37; O2SAT 90–97
[2022-10-11] MEDS: IPRATROPIUM BR 0.02% INH SOLN 0.5 MG/2.5 ML VIAL INHALATION ×3 (02:26→22:18)
[2022-10-11] MEDS: ALBUTEROL SULFATE NEB 2.5 MG/3 ML INH INHALATION ×3 (02:27→22:18)
[2022-10-11 06:00] LABS: Hematocrit 32.7 % (42.0-52.0); Hemoglobin 10.6 g/dL (14.0-18.0); Mean Corpuscular HGB Conc 32.4 g/dl (32-36); Mean Corpuscular Hemoglobin 30.5 pg (26-34); Mean Corpuscular Volume 94.2 fl (80-100); Mean Platelet Volume 10.8 fl (7.4-10.4); Platelet Count Result 238 k/mm3 (150-375); Red Blood Count 3.47 M/mm3 (4.6-6.20); Red Cell Distribution Width 14.2 % (11.5-14.5); White Blood Count 12.5 K/mm3 (4.5-10.0)
[2022-10-11 06:19] LABS: Anion Gap 4 mmol/L (8-16); Blood Urea Nitrogen 34 mg/dL (9-20); Calcium 8.1 mg/dL (8.4-10.2); Carbon Dioxide 32 mmol/L (22-30); Chloride 101 mmol/L (98-107); Estimated CRCL calculation 51 ml/min; Estimated Glomerular Filt Rate > 60; Glucose 100 mg/dL (65-110); Potassium 2.9 mmol/L (3.4-5.0); Sodium 137 mmol/L (137-145)
[2022-10-11] MEDS: POTASSIUM CHLORIDE 20 MEQ TABLET 40 MEQ PO (08:00)
[2022-10-11] MEDS: SERTRALINE HCL 25 MG TABLET PO (09:00)
[2022-10-11] MEDS: FINASTERIDE 5 MG TABLET PO (09:00)
[2022-10-11] MEDS: POTASSIUM CHLORIDE 20 MEQ TABLET.ER PO (09:00)
[2022-10-11] MEDS: RIVAROXABAN 15 MG TABLET PO ×2 (09:00→16:00)
[2022-10-11] MEDS: FUROSEMIDE 40 MG TABLET PO (09:00)
[2022-10-11] MEDS: PANTOPRAZOLE 40 MG TABLET PO (09:00)
[2022-10-11] MEDS: LORATADINE 10 MG TABLET PO (09:00)
[2022-10-11 10:11] LABS: Magnesium 2.4 mg/dL (1.6-2.3)
[2022-10-11] MEDS: FLUTICASONE/SALMETEROL 115-21 MCG INHALER 1 PUFF 2 PUFF INHALATION ×2 (10:55→22:18)
--- NOTE | 2022-10-11 15:34 | PM.IMPN ---
Progress Note: A&P Assessment and Plan (1) Symptomatic bradycardia: Code(s): R00.1 - Bradycardia, unspecified Status: Acute Assessment and Plan: -The patient presented to the ED from Dr. Mancini's office for evaluation of bradycardia and relative hypotension after presenting with complaints of fatigue, weakness, and shortness of breath for several weeks. had been on low-dose beta-leora - underwent placement of permanent dual-chamber pacemaker on 10/08/2022. Tolerated this procedure well - continue with left arm sling to avoid raising the left arm - appreciate cardiology consultation (2) DVT (deep venous thrombosis): Code(s): I82.409 - Acute embolism and thrombosis of unspecified deep veins of unspecified lower extremity Status: Acute Assessment and Plan: -L peroneal DVT noted on venous doppler -anticoagulation held x48 hours to allow for pacemaker placement. -Xarelto started on 10/10/22. 15 mg BID x21 days then 20 mg daily. - pt previously on Xarelto, discontinued due to fall risk. Given acute DVT, anticoagulation is warranted and will make every effort to minimize fall risk. Implement fall precautions. Pt and family agreeable to proceed with AC. (3) Diastolic congestive heart failure: Code(s): I50.30 - Unspecified diastolic (congestive) heart failure Status: Chronic Assessment and Plan: CXR revealed moderate pulmonary edema. BNP 8600 Urine output is good and patient appears euvolemic on exam today Continue with home furosemide 40 mg daily Monitor volume status with I&O and daily weights Required supplemental O2 initially but has been weaned to room air and O2 sats remaining stable (4) Chronic atrial fibrillation: Code(s): I48.20 - Chronic atrial fibrillation, unspecified Status: Chronic Assessment and Plan: Rate is controlled. Metoprolol has been discontinued s/p Pacemaker (5) Hypertension: Code(s): I10 - Essential (primary) hypertension Status: Acute Assessment and Plan: blood pressure has been stable. Monitor trends (6) Coronary artery disease: Code(s): I25.10 - Atherosclerotic heart disease of [place] coronary artery without angina pectoris Status: Chronic Assessment and Plan: chronic, no acute issues. Patient on home aspirin, on hold at this time. Resume per Cardiology recommendations (7) Chronic obstructive pulmonary disease: Code(s): J44.9 - Chronic obstructive pulmonary disease, unspecified Status: Acute Assessment and Plan: Not in acute exacerbation. Continue nebs q6h Continue home symbicort Plan Martinez catheter discontinued today. Monitor urine output. Subjective Date/time seen: 10/11/22 15:34 Interval history: Date of service: 10/11/2022 ?Derrell Santos is an 82-year-old male? who is seen in follow-up after pacemaker placement.?He is doing well today. No chest pain. Endorses some soreness at site of placement. No SOB. No cough. Endorses feeling weak. Denies confusion. Tolerating his diet. No N/V/F/C, abdominal pain. Review of Systems Review of Systems: All systems reviewed & are unremarkable except as noted in HPI and below Exam Narrative: General: Well-nourished, well-appearing 82-year-old male, sitting up in a chair, comfortable, NARD Neuro: awake, alert and oriented x4, speech clear, no focal neuro deficits noted HEENMT: normocephalic, atraumatic, EOMI, sclerae anicteric Chest: left anterior chest wall wrapped and dressed covering recent pacemaker placement Respiratory: clear to auscultation bilaterally, nonlabored breathing Cardio: regular rate, regular rhythm with S1-S2 Abdomen: nondistended, normoactive bowel sounds, soft, nontender to palpation Extremities: left arm in sling, BLE no edema, erythema, or tenderness to palpation Skin: no rashes or lesions, warm and dry Psych: appropriate mood and affect, judgment and ins
--- NOTE | 2022-10-11 16:53 | PCRCNOTE ---
Window of time for administration has passed. See next scheduled administration.
[2022-10-11] MEDS: ATORVASTATIN 40 MG TABLET BY MOUTH (19:48)
[2022-10-11] MEDS: traMADol HCL (*CRX) 50 MG TABLET 100 MG PO (19:51)
[2022-10-12] VITALS (17 sets, daily range): BP systolic 122–145; BP diastolic 55–74; PULSE 60–74; RESP 16–20; TEMP 36.2–36.6; O2SAT 92–98
[2022-10-12] MEDS: IPRATROPIUM BR 0.02% INH SOLN 0.5 MG/2.5 ML VIAL INHALATION ×3 (03:25→14:51)
[2022-10-12] MEDS: ALBUTEROL SULFATE NEB 2.5 MG/3 ML INH INHALATION ×3 (03:26→14:47)
[2022-10-12 05:32] LABS: Hematocrit 33.6 % (42.0-52.0); Hemoglobin 10.8 g/dL (14.0-18.0); Mean Corpuscular HGB Conc 32.1 g/dl (32-36); Mean Corpuscular Hemoglobin 31.2 pg (26-34); Mean Corpuscular Volume 97.1 fl (80-100); Mean Platelet Volume 10.6 fl (7.4-10.4); Platelet Count Result 245 k/mm3 (150-375); Red Blood Count 3.46 M/mm3 (4.6-6.20); Red Cell Distribution Width 14.3 % (11.5-14.5); White Blood Count 9.6 K/mm3 (4.5-10.0)
[2022-10-12 05:52] LABS: Anion Gap 3 mmol/L (8-16); Blood Urea Nitrogen 29 mg/dL (9-20); Calcium 7.9 mg/dL (8.4-10.2); Carbon Dioxide 31 mmol/L (22-30); Chloride 102 mmol/L (98-107); Estimated CRCL calculation 65 ml/min; Estimated Glomerular Filt Rate > 60; Glucose 98 mg/dL (65-110); Potassium 3.2 mmol/L (3.4-5.0); Sodium 136 mmol/L (137-145)
[2022-10-12] MEDS: FLUTICASONE/SALMETEROL 115-21 MCG INHALER 1 PUFF 2 PUFF INHALATION ×2 (08:15→20:25)
[2022-10-12] MEDS: POTASSIUM CHLORIDE 20 MEQ TABLET PO (08:56)
[2022-10-12] MEDS: FUROSEMIDE 40 MG TABLET PO (08:57)
[2022-10-12] MEDS: RIVAROXABAN 15 MG TABLET PO ×2 (08:57→17:14)
[2022-10-12] MEDS: PANTOPRAZOLE 40 MG TABLET PO (08:58)
[2022-10-12] MEDS: SERTRALINE HCL 25 MG TABLET PO (08:58)
[2022-10-12] MEDS: FINASTERIDE 5 MG TABLET PO (08:58)
[2022-10-12] MEDS: POTASSIUM CHLORIDE 20 MEQ TABLET.ER PO (08:58)
[2022-10-12] MEDS: LORATADINE 10 MG TABLET PO (08:58)
--- NOTE | 2022-10-12 14:35 | PM.IMPN ---
Progress Note: A&P Assessment and Plan (1) Symptomatic bradycardia: Code(s): R00.1 - Bradycardia, unspecified Status: Acute Assessment and Plan: -The patient presented to the ED from Dr. Mancini's office for evaluation of bradycardia and relative hypotension after presenting with complaints of fatigue, weakness, and shortness of breath for several weeks. had been on low-dose beta-leora - underwent placement of permanent dual-chamber pacemaker on 10/08/2022. Tolerated this procedure well - continue with left arm sling to avoid raising the left arm - appreciate cardiology consultation (2) DVT (deep venous thrombosis): Code(s): I82.409 - Acute embolism and thrombosis of unspecified deep veins of unspecified lower extremity Status: Acute Assessment and Plan: -L peroneal DVT noted on venous doppler -anticoagulation held x48 hours to allow for pacemaker placement. -Xarelto started on 10/10/22. 15 mg BID x21 days then 20 mg daily. - pt previously on Xarelto, discontinued due to fall risk. Given acute DVT, anticoagulation is warranted and will make every effort to minimize fall risk. Implement fall precautions. Pt and family agreeable to proceed with AC. (3) Diastolic congestive heart failure: Code(s): I50.30 - Unspecified diastolic (congestive) heart failure Status: Chronic Assessment and Plan: CXR revealed moderate pulmonary edema. BNP 8600 Urine output is good and patient appears euvolemic on exam today Continue with home furosemide 40 mg daily Monitor volume status with I&O and daily weights Required supplemental O2 initially but has been weaned to room air and O2 sats remaining stable (4) Chronic atrial fibrillation: Code(s): I48.20 - Chronic atrial fibrillation, unspecified Status: Chronic Assessment and Plan: Rate is controlled. Metoprolol has been discontinued s/p Pacemaker (5) Hypertension: Code(s): I10 - Essential (primary) hypertension Status: Acute Assessment and Plan: blood pressure has been stable. Monitor trends (6) Coronary artery disease: Code(s): I25.10 - Atherosclerotic heart disease of [place] coronary artery without angina pectoris Status: Chronic Assessment and Plan: chronic, no acute issues. Patient on home aspirin, on hold at this time. Resume per Cardiology recommendations (7) Chronic obstructive pulmonary disease: Code(s): J44.9 - Chronic obstructive pulmonary disease, unspecified Status: Acute Assessment and Plan: Not in acute exacerbation. Continue nebs q6h Continue home symbicort (8) Urinary retention: Code(s): R33.9 - Retention of urine, unspecified Status: Acute Assessment and Plan: Martinez catheter removed on 10/11/2022 and patient failed voiding trial. Martinez replaced and will continue. Continue home finasteride. Patient will need outpatient voiding trial and urology follow-up Subjective Date/time seen: 10/12/22 14:35 Interval history: Date of service: 10/12/2022 ?Derrell Santos is an 82-year-old male? who is seen in follow-up after pacemaker placement. He is feeling well today. He was not able to urinate yesterday after having his Martinez removed and it was replaced. No issues with his catheter at this time. Discussed that he will need to continue with this and follow-up with Urology in the office and he understands. He has been eating well. He has no chest pain. Endorses some mild soreness at the site of placement, however states that is minimal compared to when he had heart surgery. He continues to have his left arm in the sling and has no issues with this. He denies shortness of breath. No cough. Denies nausea, vomiting, fever, chills. No dizziness or lightheadedness? Review of Systems Review of Systems: All systems reviewed & are unremarkable except as noted in HPI and below Exam Narrat
[2022-10-12] MEDS: ATORVASTATIN 40 MG TABLET BY MOUTH (21:23)
[2022-10-12] MEDS: ACETAMINOPHEN 325 MG TABLET 650 MG PO (21:29)
[2022-10-13] VITALS: BP 140/72; PULSE 60; RESP 16; TEMP 36.6; O2SAT 99
[2022-10-13 04:00] VITALS: BP 153/75; PULSE 54; PULSE 61; RESP 16; TEMP 36.8; O2SAT 97
[2022-10-13 05:43] LABS: Hematocrit 33.1 % (42.0-52.0); Hemoglobin 10.6 g/dL (14.0-18.0); Mean Corpuscular Hemoglobin 31.3 pg (26-34); Mean Corpuscular Volume 97.6 fl (80-100); Mean Platelet Volume 10.3 fl (7.4-10.4); Platelet Count Result 252 k/mm3 (150-375); Red Blood Count 3.39 M/mm3 (4.6-6.20); Red Cell Distribution Width 14.3 % (11.5-14.5); White Blood Count 9.2 K/mm3 (4.5-10.0)
[2022-10-13 05:59] LABS: Anion Gap 4 mmol/L (8-16); Blood Urea Nitrogen 24 mg/dL (9-20); Calcium 7.7 mg/dL (8.4-10.2); Carbon Dioxide 29 mmol/L (22-30); Chloride 106 mmol/L (98-107); Estimated CRCL calculation 65 ml/min; Estimated Glomerular Filt Rate > 60; Glucose 98 mg/dL (65-110); Magnesium 2.2 mg/dL (1.6-2.3); Potassium 3.6 mmol/L (3.4-5.0); Sodium 139 mmol/L (137-145)
[2022-10-13 08:00] VITALS: PULSE 66
[2022-10-13] MEDS: SENNOSIDES 8.6 MG TABLET PO (08:37)
[2022-10-13] MEDS: FUROSEMIDE 40 MG TABLET PO (08:38)
[2022-10-13] MEDS: SERTRALINE HCL 25 MG TABLET PO (08:38)
[2022-10-13] MEDS: PANTOPRAZOLE 40 MG TABLET PO (08:38)
[2022-10-13] MEDS: LORATADINE 10 MG TABLET PO (08:38)
[2022-10-13] MEDS: FINASTERIDE 5 MG TABLET PO (08:38)
[2022-10-13] MEDS: POTASSIUM CHLORIDE 20 MEQ TABLET.ER PO (08:38)
[2022-10-13] MEDS: RIVAROXABAN 15 MG TABLET PO (08:38)
[2022-10-13 09:47] VITALS: BP 149/74; PULSE 60; RESP 18; TEMP 36.3; O2SAT 96
[2022-10-13] MEDS: FLUTICASONE/SALMETEROL 115-21 MCG INHALER 1 PUFF 2 PUFF INHALATION (10:09)
[2022-10-13 10:10] VITALS: O2SAT 94
[2022-10-13 13:13] LABS: EDCOVIDSCREEN Negative (Negative)
--- NOTE | 2022-10-14 09:43 | PM.DS ---
DS: Admitting Diagnosis Discharge Date 10/13/22 Admitting Diagnosis Bradycardia DS: Discharge Diagnosis Discharge Diagnosis (1) Symptomatic bradycardia: Code(s): R00.1 - Bradycardia, unspecified Status: Acute Assessment and Plan: -The patient presented to the ED from Dr. Mancini's office for evaluation of bradycardia and relative hypotension after presenting with complaints of fatigue, weakness, and shortness of breath for several weeks. had been on low-dose beta-leora - underwent placement of permanent dual-chamber pacemaker on 10/08/2022. Tolerated this procedure well -patient was seen and managed by Cardiology -home metoprolol was discontinued -continue with outpatient cardiology follow-up (2) DVT (deep venous thrombosis): Code(s): I82.409 - Acute embolism and thrombosis of unspecified deep veins of unspecified lower extremity Status: Acute Assessment and Plan: -L peroneal DVT noted on venous doppler -Anticoagulation held x48 hours to allow for pacemaker placement. -Xarelto started on 10/10/22. 15 mg BID x21 days then 20 mg daily. -Patient was previously on Xarelto and discontinued due to fall risk. Given acute DVT, anticoagulation is warranted. Discussed risks versus benefits with patient and family who are agreeable to proceed. Make every effort to minimize fall risk. Patient will be monitored at facility (3) Diastolic congestive heart failure: Code(s): I50.30 - Unspecified diastolic (congestive) heart failure Status: Chronic Assessment and Plan: CXR revealed moderate pulmonary edema. BNP 8600 Patient was diuresed with Lasix and had symptomatic improvement Continue with home furosemide 40 mg daily Required supplemental O2 initially but was able to be weaned to room air and O2 sats remained stable (4) Chronic atrial fibrillation: Code(s): I48.20 - Chronic atrial fibrillation, unspecified Status: Chronic Assessment and Plan: Rate controlled. Metoprolol was discontinued s/p Pacemaker (5) Hypertension: Code(s): I10 - Essential (primary) hypertension Status: Acute Assessment and Plan: Blood pressures stable. (6) Coronary artery disease: Code(s): I25.10 - Atherosclerotic heart disease of [place] coronary artery without angina pectoris Status: Chronic Assessment and Plan: Chronic, no acute issues. Continue home aspirin (7) Chronic obstructive pulmonary disease: Code(s): J44.9 - Chronic obstructive pulmonary disease, unspecified Status: Acute Assessment and Plan: Not in acute exacerbation. Continue home symbicort (8) Urinary retention: Code(s): R33.9 - Retention of urine, unspecified Status: Acute Assessment and Plan: Martinez catheter removed on 10/11/2022 and patient failed voiding trial. Martinez replaced and will continue. Continue home finasteride and tamsulosin. Patient will need outpatient voiding trial and urology follow-up DS: Summary Hospital Course Hospital Course: Date of admission: 10/07/2022 Date of discharge: 10/13/2022 Derrell Santos is an 82-year-old male with a history atrial fibrillation, GERD, COPD, CAD, CHF, hypertension, BPH, and anemia who presented to the emergency department on 10/07/2022 with complaints of worsening weakness ongoing for 2 months. On presentation to the ED, his heart rate was 42, additional vital signs were stable, white blood cell count 10.5, hemoglobin 11.4, TSH within normal limits, additional laboratory workup unremarkable, CXR revealed mild pulmonary edema and cardiomegaly. He was admitted to the hospitalist service for further evaluation management was seen in consultation by cardiology. Please see above for further details. Had pacemaker placement on 10/08/2022 and tolerated this procedure well. Found to have DVT and anticoagulation was initiated. He participated in PT/OT during admi
== END 2022-10-13 14:20 | DRG 242 ==
LOC: ANHED 12:56 → ANHIMU 13:50 → ANH2MED 10-10 07:39 → ANHIMU 10-15 09:39
PROVIDERS: Emergency Medicine; Internal Medicine; Internal Medicine Cardiovascular Disease; Physician Assistant; Admitting Provider Student in an Organized Health Care Education/Training Program; Emergency Provider Emergency Medicine; PCP Family Medicine; Visit Provider Physician Assistant
PROC: 0JH604Z Insertion of Pacemaker, Single Chamber into Chest Subcutaneous Tissue and Fascia, Open Approach (ICD-10-PCS; CPT 33210; principal; 2022-10-08 10:00)
DX: R00.1 Bradycardia, unspecified (principal); I50.33 Acute on chronic diastolic (congestive) heart failure; I82.452 Acute embolism and thrombosis of left peroneal vein; I48.19 Other persistent atrial fibrillation; I25.10 Atherosclerotic heart disease of native coronary artery without angina pectoris; J44.9 Chronic obstructive pulmonary disease, unspecified; R33.9 Retention of urine, unspecified; I11.0 Hypertensive heart disease with heart failure; K21.9 Gastro-esophageal reflux disease without esophagitis; N40.0 Benign prostatic hyperplasia without lower urinary tract symptoms; M17.11 Unilateral primary osteoarthritis, right knee; I95.9 Hypotension, unspecified; D64.9 Anemia, unspecified; Z20.822 Contact with and (suspected) exposure to COVID-19; Z95.1 Presence of aortocoronary bypass graft; Z87.891 Personal history of nicotine dependence
CPT/HCPCS: 33212; 36415; 36600; 71045; 80048; 80053; 82805; 82948; 83735; 83880; 84443; 84484; 85025; 85027; 85610; 85730; 87426; 87637; 93005; 93306; 93970; 94640; 96374; 96375; 97110; 97161; 97166; 97530; 97535; 99285; A4565; A9270; C1779; C1786; C9803; J0461; J0690; J1265; J1610; J1940; J2250; J2405; J3010; J7040

== ENCOUNTER 2022-10-25 03:06 | Inpatient (IN) | payer MEDICARE, SELFPAY ==
[2022-10-25] VITALS (48 sets, daily range): BP systolic 102–167; BP diastolic 56–86; PULSE 60–68; RESP 16–30; TEMP 36.1–37; O2SAT 93–100; BMI 23.6
--- NOTE | ~2022-10-25 | XR_ITS ---
EXAMINATION: XR chest 1V portable DATE: 10/30/2022 10:05 INDICATION: Shortness of breath TECHNIQUE: frontal view of the chest was obtained. COMPARISON: Chest radiograph and CT dated 10/25/2022 FINDINGS: Small lung volumes. Airspace opacities in the bilateral mid and lower lung zones with slight interval improvement on the left and slight worsening on the right. Blunting at the left costophrenic angle s uggesting small left pleural effusion. No pneumothorax or right-sided pleural effusion. Cardiomegaly. Median sternotomy wires, ostial markers and mediastinal surgical clips consistent with prior coronar y artery bypass grafting. Left atrial appendage clipping. Single lead cardiac pacemaker with lead tip projecting over the apex of the right ventricle. Cholecystectomy clips at the gallbladder fossa. IMPRESSION: 1. Opacities in the bilateral mid and lower lung zones with some interval improvement on the left and minimal worsening in the right. Differential includes pneumonia, pulmonary edema, atelectasis or mos t likely some combination thereof. 2. Small left pleural effusion. 3. Cardiomegaly. Reviewed, dictated and finalized at location L. E VISITOR IMPRESSION: 1. Opacities in the bilateral mid and lower lung zones with some interval impro vement on the left and minimal worsening in the right. Differential includes pn eumonia, pulmonary edema, atelectasis or most likely some combination thereof. 2. Small left pleural effusion. 3. Cardiomegaly.
--- NOTE | ~2022-10-25 | CT_ITS ---
EXAMINATION: CTA chest PE protocol DATE: 10/25/2022 07:08 INDICATION: Hemoptysis. Shortness of breath. TECHNIQUE: Computed tomography angiography (CTA) of the chest was performed with 100 mL Omnipaque-350 intravenous contrast timed to evaluate the pulmonary arteries. Coronal maximum intensity projection 3D-reconstructions were created by the technologist. Automated exposure control and iterative reconst ruction technique were employed. The dose-length product was 649.77 mGy-cm. COMPARISON: None. FINDINGS: There are small pleural effusions. There are patchy airspace and groundglass opacities in t he upper lobes and lower lobes, left worse than right. There is smooth septal thickening in the lungs . Cardiomegaly is noted. There are coronary artery calcifications. There are changes of coronary paz ry bypass grafting. There is no pulmonary embolus. There is a left chest pacer with lead in right jakub tricle. There is a closure device at left atrial appendage. There are changes of cholecystectomy. The re is severe cervical and thoracic spondylosis. IMPRESSION: 1. No pulmonary embolus. 2. Diffuse lung disease, likely a combination of pneumonia and pulmonary edema. 3. Small pleural effusions. Reviewed, dictated and finalized at location A. PLACER
--- NOTE | ~2022-10-25 | XR_ITS ---
EXAMINATION: XR chest 1V portable DATE: 10/25/2022 03:28 INDICATION: Dyspnea. TECHNIQUE: A single frontal view of the chest was obtained. COMPARISON: Chest single view 10/09/2022, chest CT 10/25/2022 FINDINGS: There is a diffuse interstitial pattern in the lungs. There are airspace opacities in all l meredith zones bilaterally, left worse than right. There are small pleural effusions. No pneumothorax. Car diomegaly is noted. Median sternotomy wires and mediastinal surgical clips are seen, likely from prio r coronary artery bypass grafting. There is a left chest pacer with lead in right ventricle. There is a closure device at left atrial appendage. IMPRESSION: 1. Diffuse lung disease, likely a combination of pneumonia and pulmonary edema. 2. Small pleural effusions. 3. Cardiomegaly. Reviewed, dictated and finalized at location A. EW TRAINER
--- NOTE | ~2022-10-25 | US_ITS ---
EXAMINATION: US venous doppler [facility] DATE: 10/27/2022 16:06 INDICATION: Recent left peroneal deep venous thrombosis now on anticoagulation TECHNIQUE: Grayscale ultrasound images without and with compression and Doppler ultrasound images of the left lower extremity veins were obtained. COMPARISON: None. FINDINGS: The visualized portions of left common femoral vein, profunda (deep) femoral vein, femoral vein, popl iteal vein, peroneal veins, posterior tibial veins, gastrocnemius vein and greater saphenous vein out flow are patent. IMPRESSION: 1. No deep venous thrombosis in the left lower limb. Resolution of prior thrombosis in the left jermain rosina vein. Reviewed, dictated and finalized at location B. TAMPER IMPRESSION: 1. No deep venous thrombosis in the left lower limb. Resolution of prior throm bosis in the left peroneal vein.
--- NOTE | 2022-10-25 03:16 | ECG_ITS ---
Measurements Intervals [place] Rate: 61 P: CA: 0 QRS: -65 QRSD: 202 T: 110 QT: 508 QTc: 515 Interpretive Statements ELECTRONIC VENTRICULAR PACEMAKER BASELINE ARTIFACT- I, II, III, AVR, AVL, AVF, V1-V6 NO FURTHER INTERPRETATION IS POSSIBLE ATYPICAL ECG COMPARED TO ECG 10/08/2022 12:04:11 NO SIGNIFICANT CHANGES Electronically Signed On 10-25-2022 10:00:53 BOOK TRIMMER by Ted Youssef D.O.
[2022-10-25] MEDS: ALBUTEROL SULFATE NEB 2.5 MG/3 ML INH 5 MG INHALATION (03:30)
[2022-10-25] MEDS: IPRATROPIUM BR 0.02% INH SOLN 0.5 MG/2.5 ML VIAL INHALATION (03:30)
[2022-10-25 03:42] LABS: Alveolar/Arterial O2 Gradient 93.5 mmHg; Base Excess ABG 0.7 mEq/l (+/-2.0); Device NASAL CANNULA; Fractional Inspired Oxygen 28 %; HCO3 ABG 24.8 mEq/l (22.0-26.0); Modified Allen's Test Pass; Oxygen Content ABG 14.8 %vol (16.0-22.0); Oxygen Saturation ABG 92.4 % (95.0-100.0); PCO2 ABG 37.8 mmHg (35.0-45.0); PO2 ABG 61.5 mmHg (80.0-100.0); Site Drawn LEFT RADIAL; Total Hemoglobin 11.7 g/dL (12.0-18.0); pH ABG 7.435 (7.350-7.450)
[2022-10-25 03:47] LABS: Lactic Acid Reflex 1.2 mmol/L (0.7-2.0)
[2022-10-25 03:59] LABS: Troponin I < 0.012 ng/mL (0.000-0.034)
[2022-10-25 04:02] LABS: INR 2.4; Prothrombin Time 25.7 Seconds (11.1-14.7)
[2022-10-25 04:03] LABS: Partial Thromboplastin Time 42.5 SECONDS (22.3-36.8)
--- NOTE | 2022-10-25 04:09 | PC.NURSE ---
Talked to Mary in lab at 04:07 to add on CMP BNP and CBCD
[2022-10-25 04:11] LABS: Influenza A QL RT-PCR Negative (Negative); Influenza B QL RT-PCR Negative (Negative); SARS-CoV-2 RNA PCR Negative
[2022-10-25 04:12] LABS: Basophils Absolute Auto 0.1 K/mm3 (0.0-0.1); Basophils Percent Auto 0.4 % (0.2-1.2); Eosinophils Absolute Auto 0.1 K/mm3 (0-0.3); Eosinophils Percent Auto 0.5 % (0-4.4); Hematocrit 35.6 % (42.0-52.0); Hemoglobin 11.3 g/dL (14.0-18.0); Immature Granulocyte Absolute 0.08 K/mm3 (0.00-0.031); Immature Granulocyte Percent A 0.5 % (0-0.5); Lymphocytes Absolute Auto 1.12 K/mm3 (0.9-3.2); Lymphocytes Percent Auto 7.4 % (18.3-44.2); Mean Corpuscular HGB Conc 31.7 g/dl (32-36); Mean Corpuscular Hemoglobin 30.9 pg (26-34); Mean Corpuscular Volume 97.3 fl (80-100); Mean Platelet Volume 9.9 fl (7.4-10.4); Monocytes Absolute Auto 1.1 K/mm3 (0.1-0.6); Monocytes Percent Auto 7.2 % (2.6-8.5); Neutrophils Absolute Auto 12.8 K/mm3 (1.3-6.7); Platelet Count Result 412 k/mm3 (150-375); Red Blood Count 3.66 M/mm3 (4.6-6.20); Red Cell Distribution Width 14.3 % (11.5-14.5); White Blood Count 15.2 K/mm3 (4.5-10.0)
[2022-10-25 04:20] LABS: Alanine Aminotransferase 57 U/L (6-50); Albumin Level 3.5 g/dL (3.5-5.1); Alkaline Phosphatase 108 U/L (38-126); Anion Gap 2 mmol/L (8-16); Aspartate Amino Transferase 41 U/L (17-59); Blood Urea Nitrogen 20 mg/dL (9-20); Calcium 8.5 mg/dL (8.4-10.2); Carbon Dioxide 28 mmol/L (22-30); Chloride 106 mmol/L (98-107); Estimated CRCL calculation 65 ml/min; Estimated Glomerular Filt Rate > 60; Glucose 114 mg/dL (65-110); Potassium 3.9 mmol/L (3.4-5.0); Sodium 136 mmol/L (137-145)
[2022-10-25 04:21] LABS: Procalcitonin 0.1 ng/mL
[2022-10-25 04:29] LABS: NT Pro B Type Natriuretic Pept 4070 pg/mL (19.9-100)
--- NOTE | 2022-10-25 06:32 | ED.GENADULT ---
HPI - General Adult General Chief complaint: Shortness of Breath/Dyspnea <Shaquille Obrien MD - Last Filed: 10/25/22 06:35> Stated complaint: SOB <Shaquille Obrien MD - Last Filed: 10/25/22 06:35> Time Seen by Provider: 10/25/22 03:14 <Shaquille Obrien MD - Last Filed: 10/25/22 06:35> History of Present Illness HPI narrative: Patient 82-year-old gentleman who presents the emergency department with chief complaint of shortness of breath. Per the nursing facility the patient normally is not on oxygen and tonight got short of breath and called EMS and placed patient on 2 L nasal cannula. After placing the patient on 2 L nasal cannula was blocked oxygen. Been in the 90s. The patient states he still feels a little short of breath reports he has had a cough. Patient denies chest pain <Shaquille Obrien MD - Last Filed: 10/25/22 06:35> Related Data Home medications: Home Medications Medication Instructions Recorded Confirmed acetaminophen 325 mg tablet 650 mg PO Q6H PRN Pain 02/20/20 10/07/22 sennosides 8.6 mg capsule (senna) 8.6 mg PO BID PRN Constipation 05/04/20 10/07/22 fexofenadine 180 mg tablet 180 mg PO DAILY 10/07/22 10/07/22 tamsulosin 0.4 mg capsule 0.8 mg PO HS 10/12/22 10/12/22 <Shaquille Obrien MD - Last Filed: 10/25/22 06:35> Allergies/adverse reactions: Allergies Allergy/AdvReac Type Severity Reaction Status Date / Time No Known Allergies Allergy Verified 10/07/22 15:11 <Shaquille Obrien MD - Last Filed: 10/25/22 06:35> Review of Systems Review of Systems: A 10 system review of systems was completed on the patient and is negative except for what is stated in the HPI. Nursing and ancillary documentation was reviewed. <Shaquille Obrien MD - Last Filed: 10/25/22 06:35> [facility] Past Medical History Medical History: Medical History Allergic rhinitis Anemia Benign prostatic hyperplasia Chronic atrial fibrillation Status post left atrial appendage ligation. Chronic gastroesophageal reflux disease Chronic obstructive pulmonary disease Coronary artery disease Status post 2 vessel bypass in February 2020. Diastolic congestive heart failure Hypertension Mild intermittent asthma Right knee DJD <Shaquille Obrien MD - Last Filed: 10/25/22 06:35> Surgical History Surgical History: Surgical History History of cardiac cath 02/02/2020: 90% Left Main lesion History of cardiac catheterization History of removal of cyst Posterior neck. History of two vessel coronary artery bypass graft (02/2020) Status post ligation of left atrial appendage Status post placement of cardiac pacemaker <Shaquille Obrien MD - Last Filed: 10/25/22 06:35> Family History Family History: Family History Mother Family history of cardiovascular disease Hypertension Acute myocardial infarction Father Malignant neoplasm of prostate Family history of Parkinson's disease <Shaquille Obrien MD - Last Filed: 10/25/22 06:35> Social History Social History: Social History Social History: Surrogate medical decision maker: Tala Jiang, daughter. Code status: Full code. Smoking packs per day: 20 Smoking cigarettes per day: 400.0 Years smoked: 20 Smoking pack-years: 400.00 Smoking status: Former smoker Tobacco type: cigarettes Second hand tobacco smoke exposure: No Smoking end date: 10/05/91 Alcohol intake: never Drinks per week: 1 Substance use: former Substance use type: does not use Lack of Transportation: No Lack of Food: Never True Current Housing: I Have Housing Concerned About Future Housing: No
[2022-10-25 06:49] LABS: Troponin I < 0.012 ng/mL (0.000-0.034)
--- NOTE | 2022-10-25 07:09 | PC.NURSE ---
Update called to [facility], spoke with Faraz.
--- NOTE | 2022-10-25 07:13 | PC.NURSE ---
Nurse report given to Hosea SANTAMARIA
--- NOTE | 2022-10-25 07:36 | PC.NURSE ---
Patient attempting to urinate at this time.
[2022-10-25 08:45] LABS: Appearance Urine Clear (Clear); Bilirubin Urine Negative (Negative); Blood Urine Negative (Negative); Color Urine Yellow (Yellow); Glucose Urine UA Negative (Negative); Ketones Urine Trace mg/dL (Negative); Leukocyte Esterase Ur Negative LEU/UL (Negative); Nitrate Urine Negative (Negative); Protein Urine Negative (Negative); Specific Grav Ur 1.025 (1.001-1.035); Urobilinogen Urine 0.2 mg/dL (<2.0); pH Urine 5.5 (5.0-9.0)
[2022-10-25 09:11] LABS: Mucus Urine Rare /lpf; RBC Urine 0-2 /hpf (0-2)
[2022-10-25 09:16] LABS: Add Urine Microscopic? YES
[2022-10-25] MEDS: FUROSEMIDE INJ 40 MG/4 ML VIAL IV PUSH (10:23)
--- NOTE | 2022-10-25 13:20 | PM.IMHP ---
H&P: HPI History of Present Illness Date/Time: 10/25/22 13:20 Chief Complaint: Shortness of breath Narrative: Date of service: 10/25/2022 Derrell Santso is an 82-year-old male with history of atrial fibrillation, COPD CAD, CHF, hypertension, BPH, anemia, recent hospitalization approximately 2 weeks which he underwent pacemaker placement and was started on anticoagulation for left lower extremity DVT. Patient states the presented to the hospital because he could not breathe. Patient states that he has been feeling short of breath since he was discharged from the hospital on 10/14/2022 and this has been progressively worsening to the point where last night he could not catch his breath. States his symptoms are typically worse at bedtime when he is lying down flat or with exertion. He has been using albuterol inhaler with no improvement. States sometimes his symptoms are improved when he takes deep breaths in through his nose and out through his mouth, as he is reminded to do by staff. He has noticed some phlegm in the back of his throat for about a week that he has been able to expectorates. States that occasionally his sputum is streaked with blood. He has noticed swelling of his lower extremities, stating the right is more swollen than the left. He complains of dyspnea on exertion. He denies fevers or chills. He has not had any issues with his pacemaker that he is aware of. He was discharged with a Martinez catheter due to urinary retention, but states that he a successful voiding trial and has been able to void independently. He does note that in the ER he was not able to urinate initially and required straight catheterization but after receiving Lasix, he has been voiding independently. He endorses urinary frequency after receiving Lasix, but prior to this did not have any urinary symptoms including dysuria, hematuria, urgency, or frequency. Review of Systems Review of Systems: All systems reviewed & are unremarkable except as noted in HPI and below PMFSH Past Medical History Medical History (Updated 10/25/22 @ 13:31 by Inessa Jett PA-C) Allergic rhinitis Anemia Benign prostatic hyperplasia Chronic atrial fibrillation Status post left atrial appendage ligation. Chronic gastroesophageal reflux disease Chronic obstructive pulmonary disease Coronary artery disease Status post 2 vessel bypass in February 2020. Diastolic congestive heart failure Hypertension Left leg DVT Mild intermittent asthma Right knee DJD Surgical History Surgical History (Updated 10/25/22 @ 13:31 by Inessa Jett PA-C) History of cardiac cath 02/02/2020: 90% Left Main lesion History of cardiac catheterization History of removal of cyst Posterior neck. History of two vessel coronary artery bypass graft (02/2020) Status post ligation of left atrial appendage Status post placement of cardiac pacemaker Family History Family History Mother Family history of cardiovascular disease Hypertension Acute myocardial infarction Father Malignant neoplasm of prostate Family history of Parkinson's disease Social History Social History (Updated 10/25/22 @ 13:29 by Inessa Jett PA-C) Social History: Surrogate medical decision maker: Tala Jiang, daughter. Code status: Full code. Smoking packs per day: 1 Smoking cigarettes per day: 20.0 Years smoked: 20 Smoking pack-years: 20.00 Smoking status: Former smoker Tobacco type: cigarettes Second hand tobacco smoke exposure: No Smoking end date: 10/05/91 Alcohol intake: never Drinks per week: 0 Substance use type: does not use Lack of Transportation: No Lack of Food: Never True Current Housing: I Have Housing Concerned About Future Housing: No Difficulty Paying Gas/Electric Bills: No Difficulty Paying for Meds: No Currently Unemployed: No Education: High School Diploma/
--- NOTE | 2022-10-25 14:03 | ADMGEN ---
This patient, Derrell Santos, was admitted to IMU Room 203-01 at 1118. Patient/family oriented to hospital policies and general routines including ID bracelet, bed and alarms, visiting hours, pain management, procedures, bathroom and other care routines, personal items, smoking policy, room service/diet, and visiting hours. Information on how to activate the Rapid Response Team has been discussed. Patient/Family are encouraged to report perceived risks to care and to ask questions if they do not understand what they are told or what they should do.
[2022-10-25] MEDS: ASPIRIN 81 MG ENTERIC TABLET PO (16:30)
[2022-10-25] MEDS: FINASTERIDE 5 MG TABLET PO (16:30)
[2022-10-25] MEDS: LIDOCAINE 5% PATCH 1 PATCH TOPICAL (16:30)
[2022-10-25] MEDS: POTASSIUM CHLORIDE 20 MEQ TABLET.ER PO (16:31)
[2022-10-25] MEDS: SERTRALINE HCL 25 MG TABLET PO (16:31)
[2022-10-25] MEDS: PANTOPRAZOLE 40 MG TABLET PO (16:31)
[2022-10-25] MEDS: ATORVASTATIN 40 MG TABLET PO (21:04)
[2022-10-25] MEDS: TAMSULOSIN HCL 0.4 MG CAPSULE 0.8 MG PO (21:04)
[2022-10-25] MEDS: RIVAROXABAN 15 MG TABLET PO (21:04)
[2022-10-25] MEDS: FLUTICASONE/SALMETEROL 115-21 MCG INHALER 1 PUFF 2 PUFF INHALATION (21:11)
[2022-10-25] MEDS: ALBUTEROL SULFATE (*SP) AEROSOL 1 PUFF INHALATION (21:12)
[2022-10-26] VITALS (20 sets, daily range): BP systolic 123–150; BP diastolic 63–74; PULSE 59–84; RESP 16–24; TEMP 36.3–36.9; O2SAT 94–99
[2022-10-26 05:11] LABS: Hemoglobin 9.4 g/dL (14.0-18.0); Mean Corpuscular HGB Conc 31.3 g/dl (32-36); Mean Corpuscular Hemoglobin 29.7 pg (26-34); Mean Corpuscular Volume 94.9 fl (80-100); Platelet Count Result 307 k/mm3 (150-375); Red Blood Count 3.16 M/mm3 (4.6-6.20); Red Cell Distribution Width 14.1 % (11.5-14.5); White Blood Count 8.2 K/mm3 (4.5-10.0)
[2022-10-26 05:26] LABS: Alanine Aminotransferase 46 U/L (6-50); Alkaline Phosphatase 81 U/L (38-126); Anion Gap 2 mmol/L (8-16); Aspartate Amino Transferase 31 U/L (17-59); Blood Urea Nitrogen 20 mg/dL (9-20); Calcium 8.1 mg/dL (8.4-10.2); Carbon Dioxide 29 mmol/L (22-30); Chloride 104 mmol/L (98-107); Estimated CRCL calculation 65 ml/min; Estimated Glomerular Filt Rate > 60; Glucose 90 mg/dL (65-110); Potassium 3.7 mmol/L (3.4-5.0); Sodium 135 mmol/L (137-145)
[2022-10-26] MEDS: FLUTICASONE/SALMETEROL 115-21 MCG INHALER 1 PUFF 2 PUFF INHALATION ×2 (07:37→19:26)
[2022-10-26] MEDS: LIDOCAINE 5% PATCH 1 PATCH TOPICAL (09:17)
[2022-10-26] MEDS: FUROSEMIDE INJ 40 MG/4 ML VIAL IV PUSH (09:17)
[2022-10-26] MEDS: ASPIRIN 81 MG ENTERIC TABLET PO (09:18)
[2022-10-26] MEDS: FINASTERIDE 5 MG TABLET PO (09:20)
[2022-10-26] MEDS: RIVAROXABAN 15 MG TABLET PO ×2 (09:20→21:22)
[2022-10-26] MEDS: POTASSIUM CHLORIDE 20 MEQ TABLET.ER PO (09:20)
[2022-10-26] MEDS: PANTOPRAZOLE 40 MG TABLET PO (09:20)
[2022-10-26] MEDS: SERTRALINE HCL 25 MG TABLET PO (09:20)
--- NOTE | 2022-10-26 13:47 | PM.IMPN ---
Progress Note: A&P Assessment and Plan (1) Hypoxia: Code(s): R09.02 - Hypoxemia Status: Acute Assessment and Plan: Patient found to be hypoxic at his nursing facility (no episodes of hypoxia documented in EMR) and was placed on 2 L supplemental oxygen. noted to be tachypneic on presentation. Currently maintaining adequate O2 sats on 2 L supplemental O2. CXR revealed diffuse lung disease. See plan as below. CTA of the chest was negative for pulmonary embolism. Continue supplemental O2 as needed with goal sats 92% or above (2) Pneumonia: Code(s): J18.9 - Pneumonia, unspecified organism Status: Acute Assessment and Plan: Patient with leukocytosis on presentation and findings of diffuse lung disease on imaging. Given his recent hospital admission (10/07-10/12/22) he will be treated for hospital-acquired pneumonia. Continue Levaquin and vancomycin. Sputum culture pending. Legionella, pneumococcal, and mycoplasma antigens pending. COVID and influenza negative. Supportive care to include bronchodilators, expectorants, incentive spirometry, and Cornet. Complains of occasional hemoptysis which is likely due to pneumonia. PE ruled out. Consider holding Eliquis if persistent (3) CHF exacerbation: Code(s): I50.9 - Heart failure, unspecified Status: Acute Assessment and Plan: CXR with hypervolemia with pulmonary edema and small pleural effusions. Echo reviewed from prior admission 10/07/2022 which demonstrated normal systolic function with diastolic dysfunction. Patient complains of lower extremity edema and orthopnea. BNP 4000. Continue IV Lasix 40 mg daily. Monitor intake and output and daily weights. Heart healthy diet. (4) Status post cardiac pacemaker procedure: Code(s): Z95.0 - Presence of cardiac pacemaker Status: Acute Assessment and Plan: Underwent pacemaker placement on 10/08/2022. Awaiting pacemaker interrogation to ensure functioning appropriately (5) BPH (benign prostatic hyperplasia): Code(s): N40.0 - Benign prostatic hyperplasia without lower urinary tract symptoms Status: Chronic Assessment and Plan: Recent issues with urinary retention that has resolved. Continue home tamsulosin and finasteride. Patient did require straight cath this morning due to episode of retention but has been voiding independently throughout remainder of day without any issues. Continue to monitor intake and output. (6) Left leg DVT: Code(s): I82.402 - Acute embolism and thrombosis of unspecified deep veins of left lower extremity Status: Acute Assessment and Plan: Evident on last admission 10/08/2022. Continue Xarelto. will need to continue with 15 mg b.i.d. dosing through 10/31/2022. (7) Anemia: Qualifiers: Anemia type: unspecified type Qualified Code(s): D64.9 - Anemia, unspecified Code(s): D64.9 - Anemia, unspecified Status: Acute Assessment and Plan: H&H with slight decline from baseline. patient is hemodynamically stable. Mild, intermittent blood-streaked sputum noted, however does not appear to be significant volume of blood into not suspect this to be contributing. Plan to hold Eliquis if any further decline in H&H. Repeat labs tomorrow morning Time Spent With Patient Time: 55 minutes spent this encounter Subjective Date/time seen: 10/26/22 13:47 Interval history: date of service: 10/26/2019 Derrell Santos is an 82-year-old male with history of atrial fibrillation, COPD CAD, CHF, hypertension, BPH, anemia, and recent?hospitalization approximately 2 weeks?ago for pacemaker and left DVT who is seen in follow-up for CHF exacerbation and pneumonia. He is feeling about the same today. He continues to endorse shortness of breath. He states that every so often he is having a hard time breathing. He notices this specifically with movement in bed. He complains of d
[2022-10-26] MEDS: ATORVASTATIN 40 MG TABLET PO (21:22)
[2022-10-26] MEDS: TAMSULOSIN HCL 0.4 MG CAPSULE 0.8 MG PO (21:22)
[2022-10-26] MEDS: DOCUSATE SODIUM 100 MG CAPSULE PO (21:22)
[2022-10-26] MEDS: SODIUM CHLORIDE NASAL GEL 14.1 GM 1 APPLIC NASAL (21:23)
[2022-10-26 21:47] LABS: Vancomycin Trough 18.3 ug/mL (10.0-20.0)
[2022-10-27] VITALS (16 sets, daily range): BP systolic 124–160; BP diastolic 61–98; PULSE 60–76; RESP 14–22; TEMP 36.1–36.6; O2SAT 94–100
[2022-10-27 04:39] LABS: Hematocrit 30.3 % (42.0-52.0); Hemoglobin 9.7 g/dL (14.0-18.0); Mean Corpuscular Volume 96.8 fl (80-100); Mean Platelet Volume 10.2 fl (7.4-10.4); Platelet Count Result 312 k/mm3 (150-375); Red Blood Count 3.13 M/mm3 (4.6-6.20)
[2022-10-27 04:52] LABS: Anion Gap 3 mmol/L (8-16); Blood Urea Nitrogen 20 mg/dL (9-20); Carbon Dioxide 30 mmol/L (22-30); Chloride 103 mmol/L (98-107); Estimated CRCL calculation 58 ml/min; Estimated Glomerular Filt Rate > 60; Glucose 94 mg/dL (65-110); Potassium 3.6 mmol/L (3.4-5.0); Sodium 136 mmol/L (137-145)
[2022-10-27] MEDS: ALBUTEROL SULFATE (*SP) AEROSOL 1 PUFF INHALATION (05:59)
[2022-10-27] MEDS: ASPIRIN 81 MG ENTERIC TABLET PO (08:58)
[2022-10-27] MEDS: DOCUSATE SODIUM 100 MG CAPSULE PO ×2 (08:59→21:38)
[2022-10-27] MEDS: FINASTERIDE 5 MG TABLET PO (08:59)
[2022-10-27] MEDS: LIDOCAINE 5% PATCH 1 PATCH TOPICAL (09:00)
[2022-10-27] MEDS: FUROSEMIDE INJ 40 MG/4 ML VIAL IV PUSH (09:00)
[2022-10-27] MEDS: PANTOPRAZOLE 40 MG TABLET PO (09:01)
[2022-10-27] MEDS: SERTRALINE HCL 25 MG TABLET PO (09:01)
[2022-10-27] MEDS: RIVAROXABAN 15 MG TABLET PO ×2 (09:01→21:38)
[2022-10-27] MEDS: POTASSIUM CHLORIDE 20 MEQ TABLET.ER PO (09:02)
[2022-10-27] MEDS: polyethylene glycoL 3350 17 GM POWD.PACK PO (09:20)
--- NOTE | 2022-10-27 13:00 | PM.IMPN ---
Progress Note: A&P Assessment and Plan (1) Hypoxia: Code(s): R09.02 - Hypoxemia Status: Acute Assessment and Plan: Patient found to be hypoxic at his nursing facility (no episodes of hypoxia documented in EMR) and was placed on 2 L supplemental oxygen. noted to be tachypneic on presentation. Currently maintaining adequate O2 sats on 2 L supplemental O2. CXR revealed diffuse lung disease. See plan as below. CTA of the chest was negative for pulmonary embolism. Continue supplemental O2 as needed with goal sats 92% or above (2) Pneumonia: Code(s): J18.9 - Pneumonia, unspecified organism Status: Acute Assessment and Plan: Patient with leukocytosis on presentation and findings of diffuse lung disease on imaging. Given his recent hospital admission (10/07-10/12/22) he will be treated for hospital-acquired pneumonia. Continue Levaquin and vancomycin. Sputum culture pending. Legionella, pneumococcal, and mycoplasma antigens pending, preliminary results with growth of normal oropharyngeal jenny. COVID and influenza negative. Supportive care to include bronchodilators, expectorants, incentive spirometry, and Cornet. (3) CHF exacerbation: Code(s): I50.9 - Heart failure, unspecified Status: Acute Assessment and Plan: CXR with hypervolemia with pulmonary edema and small pleural effusions. Echo reviewed from prior admission 10/07/2022 which demonstrated normal systolic function with diastolic dysfunction. Patient complains of lower extremity edema and orthopnea. BNP 4000. He has had symptomatic improvement with IV diuresis and has-1.5 L fluid balance. Will transition to PO Lasix 40 mg daily. Monitor intake and output and daily weights. Heart healthy diet. (4) Status post cardiac pacemaker procedure: Code(s): Z95.0 - Presence of cardiac pacemaker Status: Acute Assessment and Plan: Underwent pacemaker placement on 10/08/2022. Pacemaker was interrogated in the ED. report reviewed, appears to be functioning well without issues. 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 Continue home tamsulosin and finasteride. Patient did require straight cath on 10/26 due to episode of retention but has been voiding independently since that time without any issues. Continue to monitor urine output. (6) Left leg DVT: Code(s): I82.402 - Acute embolism and thrombosis of unspecified deep veins of left lower extremity Status: Acute Assessment and Plan: Evident on last admission 10/08/2022. Continue Xarelto (15 mg b.i.d. dosing through 10/31/2022, then transition to 20 mg daily). Discussed with patient and daughter/POA today. Will proceed with left venous Doppler to evaluate if DVT is still present. If absent, patient and family would prefer to discontinue Xarelto. (7) Anemia: Qualifiers: Anemia type: unspecified type Qualified Code(s): D64.9 - Anemia, unspecified Code(s): D64.9 - Anemia, unspecified Status: Acute Assessment and Plan: H&H with slight decline from baseline. patient is hemodynamically stable. Mild, intermittent blood-streaked sputum noted, however does not appear to be significant volume of blood and do not suspect this to be contributing. [place] to be secondary to pneumonia, CTA negative for PE. H&H remaining stable today. Plan to hold Eliquis if any further decline in H&H. Repeat labs tomorrow morning Subjective Date/time seen: 10/27/22 13:00 Interval history: date of service: 10/26/2019 Derrell Santos is an 82-year-old male with history of atrial fibrillation, COPD CAD, CHF, hypertension, BPH, anemia, and recent?hospitalization approximately 2 weeks?ago for pac
[2022-10-27] MEDS: FLUTICASONE/SALMETEROL 115-21 MCG INHALER 1 PUFF 2 PUFF INHALATION (20:27)
[2022-10-27] MEDS: SODIUM CHLORIDE NASAL GEL 14.1 GM 1 APPLIC NASAL (21:39)
[2022-10-27] MEDS: TAMSULOSIN HCL 0.4 MG CAPSULE 0.8 MG PO (21:39)
[2022-10-27] MEDS: ATORVASTATIN 40 MG TABLET PO (21:39)
[2022-10-28] VITALS (18 sets, daily range): BP systolic 131–159; BP diastolic 61–85; PULSE 60–72; RESP 18–22; TEMP 36–36.6; O2SAT 94–100
[2022-10-28 04:59] LABS: Hemoglobin 9.1 g/dL (14.0-18.0); Mean Corpuscular HGB Conc 31.4 g/dl (32-36); Mean Corpuscular Volume 95.7 fl (80-100); Platelet Count Result 299 k/mm3 (150-375); Red Blood Count 3.03 M/mm3 (4.6-6.20); Red Cell Distribution Width 13.7 % (11.5-14.5); White Blood Count 6.9 K/mm3 (4.5-10.0)
[2022-10-28 05:11] LABS: Anion Gap 1 mmol/L (8-16); Blood Urea Nitrogen 17 mg/dL (9-20); Carbon Dioxide 30 mmol/L (22-30); Chloride 101 mmol/L (98-107); Estimated CRCL calculation 65 ml/min; Estimated Glomerular Filt Rate > 60; Glucose 94 mg/dL (65-110); Potassium 3.7 mmol/L (3.4-5.0); Sodium 132 mmol/L (137-145)
--- NOTE | 2022-10-28 08:07 | P.CDI_ITS ---
CDI Query Clarification Request Acute on chronic diastolic CHF <Inessa Jett PA-C - Last Filed: 10/28/22 15:02> Clarified Diagnosis Clarified Diagnosis: Pt with documented history of CHF. CHF noted on assessment and plan. BNP elevated on 10/25/22 lab work. PT receiving furosemide IV, recently changed to PO. Chest X-ray from 10/25/22 shows pulmonary edema. Please specify type and acuity of heart failure if known. * Acute * Chronic * Acute on Chronic * Unknown * Systolic * Diastolic * Combined Systolic and Diastolic * Unknown <Ailyn Melchor RN - Last Filed: 10/28/22 08:10>
[2022-10-28] MEDS: polyethylene glycoL 3350 17 GM POWD.PACK PO (09:50)
[2022-10-28] MEDS: FUROSEMIDE 40 MG TABLET PO (09:51)
[2022-10-28] MEDS: LIDOCAINE 5% PATCH 1 PATCH TOPICAL (09:51)
[2022-10-28] MEDS: ASPIRIN 81 MG ENTERIC TABLET PO (09:51)
[2022-10-28] MEDS: POTASSIUM CHLORIDE 20 MEQ TABLET.ER PO (09:51)
[2022-10-28] MEDS: FINASTERIDE 5 MG TABLET PO (09:51)
[2022-10-28] MEDS: RIVAROXABAN 15 MG TABLET PO ×2 (09:51→20:35)
[2022-10-28] MEDS: SERTRALINE HCL 25 MG TABLET PO (09:51)
[2022-10-28] MEDS: PANTOPRAZOLE 40 MG TABLET PO (09:52)
[2022-10-28] MEDS: DOCUSATE SODIUM 100 MG CAPSULE PO (09:52)
[2022-10-28] MEDS: SALINE 0.65% NAS SOLN 44 ML BTL 1 SPRAY NASAL (09:56)
--- NOTE | 2022-10-28 11:04 | PCRCNOTE ---
Window of time for administration has passed. See next scheduled administration.
--- NOTE | 2022-10-28 14:37 | PM.IMPN ---
Progress Note: A&P Assessment and Plan (1) Hypoxia: Code(s): R09.02 - Hypoxemia Status: Acute Assessment and Plan: Patient found to be hypoxic at his nursing facility (no episodes of hypoxia documented in EMR) and was placed on 2 L supplemental oxygen. noted to be tachypneic on presentation. Currently maintaining adequate O2 sats on 2 L supplemental O2. CXR revealed diffuse lung disease. See plan as below. CTA of the chest was negative for pulmonary embolism. Continue supplemental O2 as needed with goal sats 92% or above. Wean to goal. (2) Pneumonia: Code(s): J18.9 - Pneumonia, unspecified organism Status: Acute Assessment and Plan: Patient with leukocytosis on presentation and findings of diffuse lung disease on imaging. Given his recent hospital admission (10/07-10/12/22) he will be treated for hospital-acquired pneumonia. Continue Levaquin and vancomycin. Sputum culture with growth of normal oropharyngeal jenny. Legionella, pneumococcal, and mycoplasma antigens pending, preliminary results with growth of normal oropharyngeal jenny. COVID and influenza negative. Supportive care to include bronchodilators, expectorants, incentive spirometry, and Cornet. (3) CHF exacerbation: Code(s): I50.9 - Heart failure, unspecified Status: Acute Assessment and Plan: CXR with pulmonary edema and small pleural effusions. Echo reviewed from prior admission 10/07/2022 which demonstrated normal systolic function with diastolic dysfunction. Patient complained of lower extremity edema and orthopnea. BNP 4000. He has had symptomatic improvement following IV diuresis and has negative fluid balance. Transitioned back to PO Lasix 40 mg daily. Monitor intake and output and daily weights. Heart healthy diet. (4) Status post cardiac pacemaker procedure: Code(s): Z95.0 - Presence of cardiac pacemaker Status: Acute Assessment and Plan: Underwent pacemaker placement on 10/08/2022. Pacemaker was interrogated in the ED. report reviewed, appears to be functioning well without issues. Discussed case with cardiology. (5) BPH (benign prostatic hyperplasia): Code(s): N40.0 - Benign prostatic hyperplasia without lower urinary tract symptoms Status: Chronic Assessment and Plan: Recent issues with urinary retention that has resolved. Continue home tamsulosin and finasteride. Patient did require straight cath on 10/26 due to episode of retention but has been voiding independently since that time without any issues. Continue to monitor urine output. (6) Left leg DVT: Code(s): I82.402 - Acute embolism and thrombosis of unspecified deep veins of left lower extremity Status: Acute Assessment and Plan: Evident on last admission 10/08/2022. Resolved on venous Doppler completed yesterday. Discussion regarding continued anticoagulation with patient and family today. See subjective. Will transition to Xarelto 20 mg daily. (7) Anemia: Qualifiers: Anemia type: unspecified type Qualified Code(s): D64.9 - Anemia, unspecified Code(s): D64.9 - Anemia, unspecified Status: Acute Assessment and Plan: H&H with slight decline from baseline. patient is hemodynamically stable. H&H remaining stable today. Continue to monitor. Evaluate iron panel Subjective Date/time seen: 10/28/22 14:37 Interval history: Date of service: 10/28/2022 Derrell Santos is an 82-year-old male with history of atrial fibrillation, COPD CAD, CHF, hypertension, BPH, anemia, and recent?hospitalization approximately 2 weeks?ago for pacemaker and left DVT who is seen in follow-up for CHF exacerbation and pneumonia. He is feeling a little better today. His shortness of breath seems to be improving. He states that he has improvement in his lower extremity swelling. He still has occasional blood-streaked sputum, though he states that this is much
[2022-10-28] MEDS: TAMSULOSIN HCL 0.4 MG CAPSULE 0.8 MG PO (20:35)
[2022-10-28] MEDS: SODIUM CHLORIDE NASAL GEL 14.1 GM 1 APPLIC NASAL (20:35)
[2022-10-28] MEDS: ATORVASTATIN 40 MG TABLET PO (20:37)
[2022-10-28] MEDS: FLUTICASONE/SALMETEROL 115-21 MCG INHALER 1 PUFF 2 PUFF INHALATION (21:55)
[2022-10-28 23:09] LABS: Pneumococcal Antigen Urine Not Detected (Not Detected)
[2022-10-29] VITALS (15 sets, daily range): BP systolic 144–168; BP diastolic 68–85; PULSE 60–67; RESP 18–20; TEMP 35.8–36.5; O2SAT 18–100
[2022-10-29 05:01] LABS: Hematocrit 30.9 % (42.0-52.0); Hemoglobin 9.9 g/dL (14.0-18.0); Mean Corpuscular Hemoglobin 30.8 pg (26-34); Mean Corpuscular Volume 96.3 fl (80-100); Platelet Count Result 306 k/mm3 (150-375); Red Blood Count 3.21 M/mm3 (4.6-6.20); Red Cell Distribution Width 13.7 % (11.5-14.5); White Blood Count 7.4 K/mm3 (4.5-10.0)
[2022-10-29 05:16] LABS: Anion Gap 4 mmol/L (8-16); Blood Urea Nitrogen 14 mg/dL (9-20); Carbon Dioxide 29 mmol/L (22-30); Chloride 105 mmol/L (98-107); Estimated CRCL calculation 65 ml/min; Estimated Glomerular Filt Rate > 60; Glucose 95 mg/dL (65-110); Potassium 3.8 mmol/L (3.4-5.0); Sodium 138 mmol/L (137-145)
[2022-10-29] MEDS: FUROSEMIDE 40 MG TABLET PO (08:46)
[2022-10-29] MEDS: SERTRALINE HCL 25 MG TABLET PO (08:46)
[2022-10-29] MEDS: ASPIRIN 81 MG ENTERIC TABLET PO (08:46)
[2022-10-29] MEDS: HYDROcodone/acetaminophen (*CRX) 5-325 MG TABLET 1 TAB PO (08:46)
[2022-10-29] MEDS: POTASSIUM CHLORIDE 20 MEQ TABLET.ER PO (08:47)
[2022-10-29] MEDS: DOCUSATE SODIUM 100 MG CAPSULE PO ×2 (08:47→20:15)
[2022-10-29] MEDS: FINASTERIDE 5 MG TABLET PO (08:47)
[2022-10-29] MEDS: PANTOPRAZOLE 40 MG TABLET PO (08:47)
[2022-10-29] MEDS: SALINE 0.65% NAS SOLN 44 ML BTL 1 SPRAY NASAL (08:48)
[2022-10-29] MEDS: polyethylene glycoL 3350 17 GM POWD.PACK PO (08:49)
[2022-10-29] MEDS: FLUTICASONE/SALMETEROL 115-21 MCG INHALER 1 PUFF 2 PUFF INHALATION ×2 (09:30→21:40)
--- NOTE | 2022-10-29 09:30 | PM.IMPN ---
Progress Note: A&P Assessment and Plan (1) Hypoxia: Code(s): R09.02 - Hypoxemia Status: Acute Assessment and Plan: Patient found to be hypoxic at his nursing facility (no episodes of hypoxia documented in EMR) and was placed on 2 L supplemental oxygen. noted to be tachypneic on presentation. Currently maintaining adequate O2 sats on 1 L supplemental O2. CXR revealed diffuse lung disease. See plan as below. CTA of the chest was negative for pulmonary embolism. Continue supplemental O2 as needed with goal sats 92% or above. Wean to goal. Present with activity Stable enough to transfer patient to med surg (2) Pneumonia: Code(s): J18.9 - Pneumonia, unspecified organism Status: Acute Assessment and Plan: Patient with leukocytosis on presentation and findings of diffuse lung disease on imaging. Given his recent hospital admission (10/07-10/12/22) he will be treated for hospital-acquired pneumonia. Change to levaquin PO. Sputum culture with growth of normal oropharyngeal jenny. Legionella pending, pneumococcal not detected, and mycoplasma antigens slightly elevated, preliminary results with growth of normal oropharyngeal jenny. COVID and influenza negative. Supportive care to include bronchodilators, expectorants, incentive spirometry, and Cornet. (3) CHF exacerbation: Code(s): I50.9 - Heart failure, unspecified Status: Acute Assessment and Plan: CXR with pulmonary edema and small pleural effusions. Echo reviewed from prior admission 10/07/2022 which demonstrated normal systolic function with diastolic dysfunction. Patient complained of lower extremity edema and orthopnea. BNP 4000. He has had symptomatic improvement following IV diuresis and has negative fluid balance. Transitioned back to PO Lasix 40 mg daily. Monitor intake and output and daily weights. Heart healthy diet. Patient appears to have acute on chronic diastolic heart failure in exacerbation that has resolved (4) Status post cardiac pacemaker procedure: Code(s): Z95.0 - Presence of cardiac pacemaker Status: Acute Assessment and Plan: Underwent pacemaker placement on 10/08/2022. Pacemaker was interrogated in the ED. report reviewed, appears to be functioning well without issues. Discussed case with cardiology. (5) BPH (benign prostatic hyperplasia): Code(s): N40.0 - Benign prostatic hyperplasia without lower urinary tract symptoms Status: Chronic Assessment and Plan: Recent issues with urinary retention that has resolved. Continue home tamsulosin and finasteride. Patient did require straight cath on 10/26 due to episode of retention but has been voiding independently since that time without any issues. Continue to monitor urine output. (6) Left leg DVT: Code(s): I82.402 - Acute embolism and thrombosis of unspecified deep veins of left lower extremity Status: Acute Assessment and Plan: Evident on last admission 10/08/2022. Resolved on venous Doppler completed yesterday. Discussion regarding continued anticoagulation with patient and family today. See subjective. continue Xarelto 20 mg daily. (7) Anemia: Qualifiers: Anemia type: unspecified type Qualified Code(s): D64.9 - Anemia, unspecified Code(s): D64.9 - Anemia, unspecified Status: Acute Assessment and Plan: H&H with slight decline from baseline. patient is hemodynamically stable. H&H remaining stable today. Continue to monitor. obtain anemia panel in the am Subjective Date/time seen: 10/29/22 0930 Interval history: 10/29/22 patient was sitting in the chair. Patient stated that he was doing okay. He stated that they did turn his oxygen off yesterday however when he gets up and gets around and then sits back down he has a really hard time catching his breath. They did has turned his oxygen back on last night as he did desat. Currently terrie
[2022-10-29] MEDS: LIDOCAINE 5% PATCH 1 PATCH TOPICAL (10:46)
[2022-10-29] MEDS: RIVAROXABAN 20 MG TABLET PO (17:23)
[2022-10-29] MEDS: ATORVASTATIN 40 MG TABLET PO (20:15)
[2022-10-29] MEDS: SODIUM CHLORIDE NASAL GEL 14.1 GM 1 APPLIC NASAL (20:15)
[2022-10-29] MEDS: TAMSULOSIN HCL 0.4 MG CAPSULE 0.8 MG PO (20:15)
[2022-10-29 23:52] LABS: Legionella pneumophila Ag Ur Not Detected (Not Detected)
[2022-10-30] VITALS: PULSE 60
[2022-10-30 04:00] VITALS: BP 153/77; PULSE 61; PULSE 65; RESP 20; TEMP 36.6; O2SAT 97
[2022-10-30 05:00] LABS: Basophils Absolute Auto 0.1 K/mm3 (0.0-0.1); Basophils Percent Auto 0.7 % (0.2-1.2); Eosinophils Absolute Auto 0.1 K/mm3 (0-0.3); Eosinophils Percent Auto 1.6 % (0-4.4); Hematocrit 30.1 % (42.0-52.0); Hemoglobin 9.5 g/dL (14.0-18.0); Immature Granulocyte Absolute 0.05 K/mm3 (0.00-0.031); Immature Granulocyte Percent A 0.6 % (0-0.5); Lymphocytes Absolute Auto 1.39 K/mm3 (0.9-3.2); Lymphocytes Percent Auto 17.1 % (18.3-44.2); Mean Corpuscular HGB Conc 31.6 g/dl (32-36); Mean Corpuscular Hemoglobin 29.9 pg (26-34); Mean Corpuscular Volume 94.7 fl (80-100); Monocytes Absolute Auto 0.8 K/mm3 (0.1-0.6); Monocytes Percent Auto 9.3 % (2.6-8.5); Neutrophils Absolute Auto 5.8 K/mm3 (1.3-6.7); Neutrophils Percent Auto 70.7 % (45.5-73.1); Platelet Count Result 302 k/mm3 (150-375); Red Blood Count 3.18 M/mm3 (4.6-6.20); Red Cell Distribution Width 13.5 % (11.5-14.5); White Blood Count 8.2 K/mm3 (4.5-10.0)
[2022-10-30 05:12] LABS: Alanine Aminotransferase 31 U/L (6-50); Albumin Level 2.8 g/dL (3.5-5.1); Alkaline Phosphatase 72 U/L (38-126); Anion Gap 1 mmol/L (8-16); Aspartate Amino Transferase 30 U/L (17-59); Bilirubin,Total 0.8 mg/dL (0.2-1.3); Blood Urea Nitrogen 12 mg/dL (9-20); Carbon Dioxide 30 mmol/L (22-30); Chloride 106 mmol/L (98-107); Estimated CRCL calculation 58 ml/min; Estimated Glomerular Filt Rate > 60; Glucose 96 mg/dL (65-110); Magnesium 2.1 mg/dL (1.6-2.3); Potassium 3.9 mmol/L (3.4-5.0); Sodium 137 mmol/L (137-145)
[2022-10-30 05:19] LABS: Transferrin 205 mg/dL (206-381)
[2022-10-30 06:18] LABS: Folic Acid 12.5 ng/mL (2.76->20)
[2022-10-30 06:26] LABS: Iron 35 ug/dL (49-181)
[2022-10-30 06:35] LABS: Percent Iron Saturation 11 % (20-50)
[2022-10-30 08:00] VITALS: BP 162/80; PULSE 63; PULSE 68; RESP 18; TEMP 36.2; O2SAT 96
--- NOTE | 2022-10-30 08:15 | PM.DS ---
DS: Admitting Diagnosis Discharge Date 10/30/2215 Admitting Diagnosis Hypoxia, CHF, PNA DS: Discharge Diagnosis Discharge Diagnosis (1) Hypoxia: Code(s): R09.02 - Hypoxemia Status: Acute Assessment and Plan: Patient found to be hypoxic at his nursing facility (no episodes of hypoxia documented in EMR) and was placed on 2 L supplemental oxygen. noted to be tachypneic on presentation. Currently maintaining adequate O2 sats on 1 L supplemental O2. CXR revealed diffuse lung disease. See plan as below. CTA of the chest was negative for pulmonary embolism. Continue supplemental O2 as needed with goal sats 92% or above. Wean to goal. Present with activity Stable enough to transfer patient to med surg (2) Pneumonia: Code(s): J18.9 - Pneumonia, unspecified organism Status: Acute Assessment and Plan: Patient with leukocytosis on presentation and findings of diffuse lung disease on imaging. Given his recent hospital admission (10/07-10/12/22) he will be treated for hospital-acquired pneumonia. Change to levaquin PO. Sputum culture with growth of normal oropharyngeal jenny. Legionella pending, pneumococcal not detected, and mycoplasma antigens slightly elevated, preliminary results with growth of normal oropharyngeal jenny. COVID and influenza negative. Supportive care to include bronchodilators, expectorants, incentive spirometry, and Cornet. (3) CHF exacerbation: Code(s): I50.9 - Heart failure, unspecified Status: Acute Assessment and Plan: CXR with pulmonary edema and small pleural effusions. Echo reviewed from prior admission 10/07/2022 which demonstrated normal systolic function with diastolic dysfunction. Patient complained of lower extremity edema and orthopnea. BNP 4000. He has had symptomatic improvement following IV diuresis and has negative fluid balance. Transitioned back to PO Lasix 40 mg daily. Monitor intake and output and daily weights. Heart healthy diet. Patient appears to have acute on chronic diastolic heart failure in exacerbation that has resolved (4) Status post cardiac pacemaker procedure: Code(s): Z95.0 - Presence of cardiac pacemaker Status: Acute Assessment and Plan: Underwent pacemaker placement on 10/08/2022. Pacemaker was interrogated in the ED. report reviewed, appears to be functioning well without issues. Discussed case with cardiology. (5) BPH (benign prostatic hyperplasia): Code(s): N40.0 - Benign prostatic hyperplasia without lower urinary tract symptoms Status: Chronic Assessment and Plan: Recent issues with urinary retention that has resolved. Continue home tamsulosin and finasteride. Patient did require straight cath on 10/26 due to episode of retention but has been voiding independently since that time without any issues. Continue to monitor urine output. (6) Left leg DVT: Code(s): I82.402 - Acute embolism and thrombosis of unspecified deep veins of left lower extremity Status: Acute Assessment and Plan: Evident on last admission 10/08/2022. Resolved on venous Doppler completed yesterday. Discussion regarding continued anticoagulation with patient and family today. See subjective. continue Xarelto 20 mg daily. (7) Anemia: Qualifiers: Anemia type: unspecified type Qualified Code(s): D64.9 - Anemia, unspecified Code(s): D64.9 - Anemia, unspecified Status: Acute Assessment and Plan: H&H with slight decline from baseline. patient is hemodynamically stable. H&H remaining stable today. Continue to monitor. obtain anemia panel in the am DS: Summary Hospital Course Hospital Course: Patient is an 82-year-old male with a past medical history of AFib, COPD, CAD, CHF, hypertension, BPH, anemia who presented the ED with complaints of shortness of breath. Patient recently underwent a pacemaker placement and was found to have a lower
[2022-10-30] MEDS: POTASSIUM CHLORIDE 20 MEQ TABLET.ER PO (08:53)
[2022-10-30] MEDS: polyethylene glycoL 3350 17 GM POWD.PACK PO (08:53)
[2022-10-30] MEDS: DOCUSATE SODIUM 100 MG CAPSULE PO (08:53)
[2022-10-30] MEDS: PANTOPRAZOLE 40 MG TABLET PO (08:53)
[2022-10-30] MEDS: SERTRALINE HCL 25 MG TABLET PO (08:53)
[2022-10-30] MEDS: ASPIRIN 81 MG ENTERIC TABLET PO (08:53)
[2022-10-30] MEDS: levoFLOXacin 750 MG TABLET PO (08:53)
[2022-10-30] MEDS: FINASTERIDE 5 MG TABLET PO (08:54)
[2022-10-30] MEDS: FUROSEMIDE 40 MG TABLET PO (08:54)
[2022-10-30] MEDS: FERROUS SULFATE 324 MG TABLET PO ×2 (08:59→16:48)
[2022-10-30] MEDS: SENNA/DOCUSATE SODIUM TABLET 1 TAB PO (10:23)
[2022-10-30] MEDS: FUROSEMIDE INJ 40 MG/4 ML VIAL 20 MG IV PUSH (10:23)
[2022-10-30] MEDS: FLUTICASONE/SALMETEROL 115-21 MCG INHALER 1 PUFF 2 PUFF INHALATION (10:49)
[2022-10-30 10:50] VITALS: O2SAT 97
[2022-10-30 12:00] VITALS: BP 134/67; PULSE 64; RESP 18; TEMP 36.2; O2SAT 97
[2022-10-30 16:03] LABS: EDCOVIDSCREEN Negative (Negative)
[2022-10-30] MEDS: RIVAROXABAN 20 MG TABLET PO (16:48)
== END 2022-10-30 16:59 | DRG 193 ==
LOC: ANHED 09:43 → ANHIMU 10:45
PROVIDERS: Emergency Medicine; Physician Assistant; Admitting Provider Internal Medicine; Emergency Provider Emergency Medicine; PCP Family Medicine; Visit Provider Nurse Practitioner
DX: J18.9 Pneumonia, unspecified organism (principal); I50.33 Acute on chronic diastolic (congestive) heart failure; I48.20 Chronic atrial fibrillation, unspecified; R09.02 Hypoxemia; Z20.822 Contact with and (suspected) exposure to COVID-19; I11.0 Hypertensive heart disease with heart failure; D64.9 Anemia, unspecified; K21.9 Gastro-esophageal reflux disease without esophagitis; J44.9 Chronic obstructive pulmonary disease, unspecified; I25.10 Atherosclerotic heart disease of native coronary artery without angina pectoris; N40.1 Benign prostatic hyperplasia with lower urinary tract symptoms; R33.8 Other retention of urine; M17.11 Unilateral primary osteoarthritis, right knee; J45.20 Mild intermittent asthma, uncomplicated; Z95.0 Presence of cardiac pacemaker; Z95.1 Presence of aortocoronary bypass graft; Z87.891 Personal history of nicotine dependence; Z79.82 Long term (current) use of aspirin; Z86.718 Personal history of other venous thrombosis and embolism
CPT/HCPCS: 36415; 36600; 51701; 71045; 71275; 80048; 80053; 80202; 81001; 82607; 82728; 82746; 82805; 83540; 83550; 83605; 83735; 83880; 84145; 84466; 84484; 85025; 85027; 85610; 85730; 86738; 87040; 87070; 87205; 87426; 87449; 87636; 87899; 93005; 93971; 94640; 94667; 94668; 96375; 97110; 97161; 97165; 97530; 97535; 99285; A9270; C9803; J1756; J1940; J1956; J3370; Q9967

== ENCOUNTER 2022-11-09 00:05 | Inpatient (IN) | payer MEDICARE, SELFPAY ==
[2022-11-09] VITALS (51 sets, daily range): BP systolic 99–132; BP diastolic 52–95; PULSE 59–77; RESP 12–23; TEMP 36.3–36.9; O2SAT 89–100
--- NOTE | ~2022-11-09 | XR_ITS ---
EXAMINATION: XR chest 1V portable INDICATION: Leukocytosis TECHNIQUE: Portable AP chest at 0150 hours COMPARISON: 10/30/2022 FINDINGS: There are minimal airspace opacities of the left lung base. There is no pneumothorax. Cardi omegaly is noted. Median sternotomy wires and mediastinal surgical clips are seen, likely from prior coronary artery bypass grafting. A single lead pacemaker of the left chest wall ends with its lead in the right ventricle. A left atrial appendage clip is noted. There is a small left pleural effusion. Surgical clips in the right upper quadrant are likely from prior cholecystectomy. IMPRESSION: 1. Minimal left basilar airspace opacities, consistent with atelectasis versus pneumonia. Reviewed, dictated and finalized at location A. RVISOR QUILTING
--- NOTE | ~2022-11-09 | CT_ITS ---
EXAMINATION: CT abdomen pelvis w con INDICATION: Leukocytosis, GI bleed TECHNIQUE: Computed tomographic images of the abdomen and pelvis were obtained after the administrati on of 100 cc of Omnipaque 350 intravenous contrast. The dose-length product (DLP) was 603.27 mGy-cm. Automated exposure control and iterative reconstruction technique were employed. COMPARISON: None available FINDINGS: There are small pleural effusions, left greater than right. There are airspace opacities of the lower lobes. Cardiomegaly is noted. The gallbladder is surgically absent. The liver, spleen, arizmendi creas, and adrenal glands are normal. Cysts of the kidneys measure up to 5.5 cm on the right. There i s calcified atherosclerosis of the aorta and many of the other arteries. There is a 3.1 cm fusiform a neurysm of the suprarenal abdominal aorta. No pathologically enlarged abdominal or pelvic lymph nodes are identified. There is calcified atherosclerosis of the aorta and many of the other arteries. No f ree intraperitoneal gas or evidence of bowel obstruction. There is circumferential wall thickening th roughout the entire colon. There is liquid stool in the rectum, consistent with diarrhea. There is a large diverticulum of the left posterolateral bladder wall. The appendix is normal. There is severe l umbar spondylosis. IMPRESSION: 1. Pancolitis. 2. 3.1 cm fusiform suprarenal abdominal aortic aneurysm. 3. Small pleural effusions with airspace opacities of the lower lobes, atelectasis and/or pneumonia. Reviewed, dictated and finalized at location A. R LINE REPAIRER IMPRESSION: 1. Pancolitis. 2. 3.1 cm fusiform suprarenal abdominal aortic aneurysm. 3. Small pleural effusions with airspace opacities of the lower lobes, atelecta sis and/or pneumonia.
[2022-11-09 00:33] LABS: Basophils Absolute Auto 0.1 K/mm3 (0.0-0.1); Basophils Percent Auto 0.5 % (0.2-1.2); Eosinophils Absolute Auto 0.1 K/mm3 (0-0.3); Eosinophils Percent Auto 0.7 % (0-4.4); Hematocrit 34.2 % (42.0-52.0); Immature Granulocyte Absolute 0.03 K/mm3 (0.00-0.031); Immature Granulocyte Percent A 0.2 % (0-0.5); Lymphocytes Absolute Auto 1.21 K/mm3 (0.9-3.2); Mean Corpuscular HGB Conc 32.2 g/dl (32-36); Mean Corpuscular Hemoglobin 30.7 pg (26-34); Mean Corpuscular Volume 95.5 fl (80-100); Mean Platelet Volume 10.3 fl (7.4-10.4); Monocytes Absolute Auto 2.2 K/mm3 (0.1-0.6); Monocytes Percent Auto 14.4 % (2.6-8.5); Neutrophils Absolute Auto 11.6 K/mm3 (1.3-6.7); Neutrophils Percent Auto 76.2 % (45.5-73.1); Platelet Count Result 320 k/mm3 (150-375); Red Blood Count 3.58 M/mm3 (4.6-6.20); Red Cell Distribution Width 14.6 % (11.5-14.5); White Blood Count 15.2 K/mm3 (4.5-10.0)
--- NOTE | 2022-11-09 00:34 | ED.GIBLEED ---
HPI - GI Bleed General Chief complaint: GI Bleed <STACEY Potter Last Filed: 11/12/22 09:06> Stated complaint: . <STACEY Potter Last Filed: 11/12/22 09:06> Time Seen by Provider: 11/09/22 00:16 <STACEY Potter Last Filed: 11/12/22 09:06> Source: patient, family and old records reviewed <STACEY Potter Last Filed: 11/12/22 09:06> Mode of arrival: EMS <STACEY Potter Filed: 11/12/22 09:06> Limitations: no limitations <STACEY Potter Last Filed: 11/12/22 09:06> History of Present Illness HPI Narrative: Patient is an 82-year-old male who presents the ED via EMS with report of rectal bleeding. Patient's daughter at bedside assisted in providing information. Patient is currently residing at [facility]. He has been recently hospitalized here twice to have pacemaker placed and for pneumonia. At the time of his hospitalizations, daughter reports he was having issues with constipation. He had been started on stool softeners and MiraLAX. These were never discontinued. Patient has had diarrhea over the last 3 days reportedly. They stopped the stool softeners and MiraLAX yesterday. Patient then had 2 episodes of diarrhea today with dark tarry stools. He was referred here for further evaluation. Patient is on Eliquis due to history of atrial fibrillation and previous blood clots. He denies any abdominal pain at this time. Does report nausea, but denies vomiting. Denies fever or urinary symptoms. <STACEY Potter Last Filed: 11/12/22 09:06> Related Data Home medications: Home Medications Medication Instructions Recorded Confirmed acetaminophen 325 mg tablet 650 mg PO Q6H PRN Pain 02/20/20 11/09/22 sennosides 8.6 mg capsule (senna) 8.6 mg PO Q12H PRN Constipation 05/04/20 11/09/22 fexofenadine 180 mg tablet 180 mg PO DAILY 10/07/22 11/09/22 tamsulosin 0.4 mg capsule 0.8 mg PO HS 10/12/22 11/09/22 atorvastatin 40 mg tablet 40 mg PO HS 10/25/22 11/09/22 furosemide 40 mg tablet 40 mg PO DAILY 10/25/22 11/09/22 lidocaine 4 % topical patch 1 patch topical DAILY 10/25/22 11/09/22 (Lidocaine Pain Relief) pantoprazole 40 mg tablet,delayed 40 mg PO DAILY 10/25/22 11/09/22 release Eliquis 5 mg BYMOUTH DAILY 11/09/22 11/09/22 <Meron Reza PA-C - Last Filed: 11/12/22 09:06> Allergies/Adverse reactions: Allergies Allergy/AdvReac Type Severity Reaction Status Date / Time No Known Allergies Allergy Verified 10/07/22 15:11 <Meron Reza PA-C - Last Filed: 11/12/22 09:06> Review of Systems Review of Systems: CONSTITUTIONAL: Denies fever, chills, or sweats. CARDIOVASCULAR: Denies chest pain. RESPIRATORY: Denies cough or dyspnea. GASTROINTESTINAL: See HPI. GENITOURINARY: Denies dysuria or hematuria. <Meron Reza PA-C - Last Filed: 11/12/22 09:06> All systems reviewed & are unremarkable except as noted in HPI and below <Meron Reza PA-C - Last Filed: 11/12/22 09:06> [facility] Past Medical History Medical History: Medical History Allergic rhinitis Anemia Benign prostatic hyperplasia Chronic atrial fibrillation Status post left atrial appendage ligation. Chronic gastroesophageal reflux disease Chronic obstructive pulmonary disease Coronary artery disease Status post 2 vessel bypass in February 2020. Diastolic congestive heart failure Hypertension Left leg DVT Mild intermittent asthma Right knee DJD <Meron Reza PA-C - Last Filed: 11/12/22 09:06> Surgical History Surgical History: Surgical History History of cardiac cath 02/02/2020: 90% Left Main lesion History of cardiac catheterization History of removal of cyst Posterior neck. History of two vessel coronary artery bypass graft (
[2022-11-09 00:48] LABS: Alanine Aminotransferase 23 U/L (6-50); Albumin Level 3.6 g/dL (3.5-5.1); Alkaline Phosphatase 79 U/L (38-126); Anion Gap 7 mmol/L (8-16); Aspartate Amino Transferase 26 U/L (17-59); Bilirubin,Total 1.1 mg/dL (0.2-1.3); Blood Urea Nitrogen 16 mg/dL (9-20); Calcium 8.4 mg/dL (8.4-10.2); Carbon Dioxide 27 mmol/L (22-30); Chloride 101 mmol/L (98-107); Estimated Glomerular Filt Rate > 60; Glucose 96 mg/dL (65-110); Potassium 3.4 mmol/L (3.4-5.0); Sodium 135 mmol/L (137-145)
[2022-11-09 00:52] LABS: INR 1.3; Prothrombin Time 16.1 Seconds (11.1-14.7)
[2022-11-09 00:53] LABS: Partial Thromboplastin Time 40.4 SECONDS (22.3-36.8)
[2022-11-09 01:43] LABS: Appearance Urine Clear (Clear); Bilirubin Urine Negative (Negative); Blood Urine Negative (Negative); Color Urine Yellow (Yellow); Glucose Urine UA Negative (Negative); Ketones Urine Negative (Negative); Leukocyte Esterase Ur Negative LEU/UL (Negative); Nitrate Urine Negative (Negative); Protein Urine Negative (Negative); Specific Grav Ur 1.025 (1.001-1.035); Urobilinogen Urine 0.2 mg/dL (<2.0); pH Urine 5.5 (5.0-9.0)
[2022-11-09 01:52] LABS: Mucus Urine Rare /lpf; RBC Urine 0-2 /hpf (0-2); Squamous Epithelial Cell Urine Rare /hpf (Few)
[2022-11-09] MEDS: ONDANSETRON INJ 4 MG/2 ML VIAL IV PUSH (02:08)
[2022-11-09 02:25] LABS: Add Urine Microscopic? NO
[2022-11-09] MEDS: PANTOPRAZOLE SODIUM IV 40 MG VIAL IV PUSH ×3 (02:55→22:53)
--- NOTE | 2022-11-09 03:14 | PC.NURSE ---
Spoke with Senthil from [facility] transfer center. Pt is on waitlist for Eugenio Ortega. Call back with COVID results at [phone].
[2022-11-09 03:53] LABS: Influenza A QL RT-PCR Negative (Negative); Influenza B QL RT-PCR Negative (Negative); SARS-CoV-2 RNA PCR Negative
[2022-11-09] MEDS: SODIUM CHLORIDE 0.9% IV 1,000 ML 500 ML IV CONT (05:45)
--- NOTE | 2022-11-09 05:56 | PC.NURSE ---
0551: Called [facility] Transfer Line for status on bed. No bed available yet at [facility] ([place]
[2022-11-09] MEDS: metroNIDAZOLE 500 MG/ISO 100ML 500 MG/100 ML BAG 100 MG IVPB ×2 (09:09→16:54)
[2022-11-09 10:00] LABS: Hematocrit 30.5 % (42.0-52.0); Hemoglobin 9.9 g/dL (14.0-18.0)
[2022-11-09 17:11] LABS: Hematocrit 30.7 % (42.0-52.0); Hemoglobin 9.8 g/dL (14.0-18.0)
--- NOTE | 2022-11-09 18:27 | PM.IMHP ---
H&P: HPI History of Present Illness Date/Time: 11/09/22 18:27 Chief Complaint: GI bleed Narrative: This is an 82-year-old male patient who has a history of DVTs and is on Eliquis. The patient came to the emergency room with complaints of rectal bleeding. The patient is currently at [facility] after being hospitalized for pneumonia. The patient has been dealing with constipation and was started on stool softeners and MiraLax. The patient had diarrhea over last 3 days. The patient had to episode bloody diarrhea today with dark tarry stools. His stool softeners were finally stopped yesterday. The patient is very hard of hearing and has 2 daughters at the bedside her answering questions for him. His H&H was 11.0 in 34.2. Repeat was 9.9 and 30.5. This lasts only 9.8 and 30.7. The patient was found to be negative for influenza a B and COVID. The patient was given IV fluids, Zofran, Protonix, Flagyl, and Rocephin. Patient's abdominal pelvis CT was read as the following1. Pancolitis. 2. 3.1 cm fusiform suprarenal abdominal aortic aneurysm. 3. Small pleural effusions with airspace opacities of the lower lobes, atelectasis and/or pneumonia. Chest x-ray was read as minimal left basilar airspace opacities consistent with atelectasis versus pneumonia. There is no GI specialist available this weekend. I spoke with my collaborative and I also spoke with the family members concerning not having a GI specialist on board this week and. As per my collaborative he was in agreement with admission and the family members were made aware that there is no GI specialist until tomorrow. Patient's H&H is been stable and his vital signs have been stable. His current blood pressure is 124/55 his white count is noted to be 15.2 the patient is being admitted to observation status on the date of service of 11/09/2022. Review of Systems Review of Systems: See HPI All systems reviewed & are unremarkable except as noted in HPI and below Constitutional: Constitutional: Reports as per HPI and Reports no additional constitutional complaints Eyes: Eyes: Reports as per HPI and Reports no additional eye complaints ENT: Reports system reviewed and no additional complaints, except as documented and Reports Normal hearing present Cardiovascular: Cardiovascular: Reports no additional cardiovascular complaints Respiratory: Respiratory: Reports no additional respiratory complaints and Reports no additional respiratory complaints Gastrointestinal: Gastrointestinal: Reports as per HPI and Reports no additional gastrointestinal complaints Musculoskeletal: Musculoskeletal: Reports no additional musculoskeletal complaints Integumentary/Breasts: Skin/Breast: Reports system reviewed and no additional complaints, except as docu and Reports as per HPI Neurologic: Reports system reviewed and no additional complaints, except as documented, Reports as per HPI and Reports Normal hearing present Psychiatric: Psychiatric: Reports no additional psychiatric complaints and Reports as per HPI Endocrine: Endocrine: Reports no additional endocrine complaints Hematologic/Lymphatic: Hematologic/Lymphatic: Reports no additional hematologic/lymphatic complaints Allergic/Immunologic: Allergic/Immunologic: Reports no additional allergic/immunologic complaints [facility] Past Medical History Medical History Allergic rhinitis Anemia Benign prostatic hyperplasia Chronic atrial fibrillation Status post left atrial appendage ligation. Chronic gastroesophageal reflux disease Chronic obstructive pulmonary disease Coronary artery disease Status post 2 vessel bypass in February 2020. Diastolic congestive heart failure Hypertension Left leg DVT Mild intermittent asthma Right knee DJD Surgical History Surgical History History of cardiac cath 02/02/2020: 90% Left Main lesion History
--- NOTE | 2022-11-09 19:00 | PC.NURSE ---
Assumed care of pt. at this time. report from Kate SANTAMARIA
--- NOTE | 2022-11-09 19:25 | PC.NURSE ---
Report given to Molly SANTAMARIA on 3MS at 1855
--- NOTE | 2022-11-09 19:50 | PC.NURSE ---
pt. transported to [facility] w/ dentures, hearing aids, and hearing aid roving tester laboratory.
[2022-11-09] MEDS: SODIUM CHLORIDE 0.9% IV 1,000 ML 75 ML IV CONT (21:28)
[2022-11-10] VITALS (7 sets, daily range): BP systolic 123–142; BP diastolic 55–65; PULSE 59–64; RESP 13–20; TEMP 36.1–36.4; O2SAT 96–98; BMI 24.4
[2022-11-10 01:06] LABS: Hematocrit 28.4 % (42.0-52.0)
[2022-11-10] MEDS: TAMSULOSIN HCL 0.4 MG CAPSULE 0.8 MG PO ×2 (01:22→20:38)
[2022-11-10] MEDS: metroNIDAZOLE 500 MG/ISO 100ML 500 MG/100 ML BAG 100 MG IVPB ×3 (01:23→17:20)
[2022-11-10 06:28] LABS: Basophils Absolute Auto 0.1 K/mm3 (0.0-0.1); Basophils Percent Auto 0.7 % (0.2-1.2); Eosinophils Absolute Auto 0.2 K/mm3 (0-0.3); Eosinophils Percent Auto 1.8 % (0-4.4); Hematocrit 29.8 % (42.0-52.0); Hemoglobin 9.4 g/dL (14.0-18.0); Immature Granulocyte Absolute 0.03 K/mm3 (0.00-0.031); Immature Granulocyte Percent A 0.3 % (0-0.5); Lymphocytes Percent Auto 16.4 % (18.3-44.2); Mean Corpuscular HGB Conc 31.5 g/dl (32-36); Mean Corpuscular Hemoglobin 30.7 pg (26-34); Mean Corpuscular Volume 97.4 fl (80-100); Mean Platelet Volume 10.3 fl (7.4-10.4); Monocytes Absolute Auto 1.4 K/mm3 (0.1-0.6); Monocytes Percent Auto 14.3 % (2.6-8.5); Neutrophils Absolute Auto 6.5 K/mm3 (1.3-6.7); Neutrophils Percent Auto 66.5 % (45.5-73.1); Platelet Count Result 264 k/mm3 (150-375); Red Blood Count 3.06 M/mm3 (4.6-6.20); Red Cell Distribution Width 14.4 % (11.5-14.5); White Blood Count 9.8 K/mm3 (4.5-10.0)
[2022-11-10 06:35] LABS: Alanine Aminotransferase 19 U/L (6-50); Albumin Level 2.7 g/dL (3.5-5.1); Alkaline Phosphatase 58 U/L (38-126); Anion Gap 2 mmol/L (8-16); Aspartate Amino Transferase 24 U/L (17-59); Bilirubin,Total 0.7 mg/dL (0.2-1.3); Blood Urea Nitrogen 16 mg/dL (9-20); Calcium 7.7 mg/dL (8.4-10.2); Carbon Dioxide 27 mmol/L (22-30); Chloride 103 mmol/L (98-107); Estimated Glomerular Filt Rate > 60; Glucose 84 mg/dL (65-110); Potassium 3.1 mmol/L (3.4-5.0); Sodium 132 mmol/L (137-145)
[2022-11-10 07:23] LABS: Thyroid Stimulating Hormone Reflex 0.755 uIU/mL (0.465-4.68)
[2022-11-10] MEDS: FUROSEMIDE 40 MG TABLET PO (08:19)
[2022-11-10] MEDS: SERTRALINE HCL 25 MG TABLET PO (08:19)
[2022-11-10] MEDS: POTASSIUM CHLORIDE 20 MEQ TABLET.ER PO (08:19)
[2022-11-10] MEDS: FINASTERIDE 5 MG TABLET PO (08:19)
[2022-11-10] MEDS: PANTOPRAZOLE SODIUM IV 40 MG VIAL IV PUSH ×2 (08:19→20:38)
[2022-11-10] MEDS: LORATADINE 10 MG TABLET PO (08:24)
[2022-11-10] MEDS: FLUTICASONE/SALMETEROL 115-21 MCG INHALER 1 PUFF 2 PUFF INHALATION ×2 (08:45→20:32)
[2022-11-10] MEDS: SODIUM CHLORIDE 0.9% IV 1,000 ML 75 ML IV CONT (09:55)
[2022-11-10 10:32] LABS: IFOB Positive Control Positive; Immunochemical Fecal Occult Bl Positive (N)
[2022-11-10 11:42] LABS: Hematocrit 30.6 % (42.0-52.0); Hemoglobin 9.7 g/dL (14.0-18.0)
--- NOTE | 2022-11-10 11:54 | PM.IMPN ---
Progress Note: A&P Assessment and Plan (1) Upper GI bleed: Code(s): K92.2 - Gastrointestinal hemorrhage, unspecified Status: Acute Assessment and Plan: The patient is tolerating a clear liquid diet. the patient has colitis which could be causing the bleed. Eliquis and aspirin on hold. The patient has a history of AFib and DVT, according to the daughter his primary care doctor was going to stop his Eliquis tomorrow anyway. GI consult and appreciate recommendations. Continue to monitor H&H every 6 hours. Hemoglobin and hematocrit have remained stable since arrival. Vital signs are stable. Protonix ordered. Hemoccult-positive. Stool studies pending (2) Colitis: Code(s): K52.9 - Noninfective gastroenteritis and colitis, unspecified Status: Acute Assessment and Plan: Stool studies pending continue with Flagyl and Rocephin (3) Left leg DVT: Code(s): I82.402 - Acute embolism and thrombosis of unspecified deep veins of left lower extremity Status: Acute Assessment and Plan: According to the daughter she stated that the patient had been recheck for DVT and I did review the venous Dopplers from 10/27/2022 that was read as no deep vein thrombosis in the left lower limb. Resolution of prior thrombosis of the left peroneal vein. (4) Hypoxia: Code(s): R09.02 - Hypoxemia Status: Acute Assessment and Plan: The patient is currently on oxygen at 2 L per nasal cannula. Continue with patient's home inhalers. (5) CKD (chronic kidney disease) stage 3, GFR 30-59 ml/min: Code(s): N18.3 - Chronic kidney disease, stage 3 (moderate) Status: Chronic Assessment and Plan: The patient is at his baseline. (6) Chronic a-fib: Code(s): I48.20 - Chronic atrial fibrillation, unspecified Status: Chronic Assessment and Plan: The patient has paced beats. Eliquis is on hold due to the GI bleed (7) COPD (chronic obstructive pulmonary disease): Qualifiers: COPD type: unspecified COPD Qualified Code(s): J44.9 - Chronic obstructive pulmonary disease, unspecified Code(s): J44.9 - Chronic obstructive pulmonary disease, unspecified Status: Chronic Assessment and Plan: The patient is not usually on oxygen but he is on 2 L per nasal cannula here. Continue with inhalers from home. Time Spent With Patient Time with patient: 25 - 35 minutes Subjective Date/time seen: 11/10/22 11:54 Interval history: Patient lying in bed comfortably while being interviewed. Patient pleasantly confused. Patient denies any pain but does states that he had some diarrhea this morning. This is able to be collected and sent down for culture. Patient denies fever, dizziness, chest pain, nausea, vomiting, shortness of breath. Review of Systems Review of Systems: All systems reviewed & are unremarkable except as noted in HPI and below Exam Narrative: GENERAL: Comfortable, no acute distress HENMT: moist mucous membranes EYES: EOM intact b/l NECK: no lymphadenopathy RESPIRATORY: clear to auscultation CARDIO: Irregular rhythm rate controlled GI: soft, nontender, bowel sounds present SKIN: no rashes EXTREMITIES: no edema, redness or tenderness Objective Data Vital Signs Vital Signs: Vital Signs - 24 hr 11/09/22 12:00 11/09/22 12:01 11/09/22 12:15 Temperature Pulse Rate Respiratory Rate 20 20 20 Blood Pressure 114/54 L Pulse Oximetry 99 98 100 Oxygen Delivery 11/09/22 13:15 11/09/22 13:30 11/09/22 13:31 Temperature Pulse Rate Respiratory Rate 13 20 12 Blood Pressure 132/55 L Pulse Oximetry 99 99 Oxygen Delivery 11/09/22 13:53 11/09/22 14:00 11/09/22 14:34 Temperature Pulse Rate Respiratory Rate 15 17 Blood Pressure Pulse Oximetry 100 100 100 Oxygen Delivery 11/09/22 14:50 11/09/22 15:26
--- NOTE | 2022-11-10 15:02 | WPDGICN ---
Assessment and Plan Assessment and plan (1) Bloody diarrhea: Code(s): R19.7 - Diarrhea, unspecified Status: Acute Assessment and Plan: Patient admitted with bloody diarrhea. CT scan suggests thickening of the entire length of the colon which was interpreted as pancolitis. Patient's currently very weak having just had a pacemaker insertion complicated by pneumonia and a DVT. He is on anticoagulation. Anticoagulation undoubtedly contributes to blood loss. Hemoglobin is anemic but has not decline significantly since admission the hospital. I am suspicious for infectious etiology of his diarrhea. Plan for stool cultures which are pending at this time. Continue broad-spectrum antibiotics. We will need to hold anticoagulation at this time. Colonoscopy may be beneficial but should be deferred at present given his general weakness and poor overall condition. If cultures are negative we may wish to pursue this as his energy level increases. We will continue monitor hemoglobin closely. 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 He has been on Eliquis. We will need to hold this because of bleeding. DVT appears to be resolved at present. (3) Left leg DVT: Code(s): I82.402 - Acute embolism and thrombosis of unspecified deep veins of left lower extremity Status: Acute Assessment and Plan: Patient with recent DVT however this appears improved. Ideally we would continue anticoagulation a little bit longer but need to hold because of GI bleeding. (4) Status post cardiac pacemaker procedure: Code(s): Z95.0 - Presence of cardiac pacemaker Status: Acute Assessment and Plan: Doing well, followed by Cardiology. Currently in rehab because of general weakness. (5) Pneumonia: Code(s): J18.9 - Pneumonia, unspecified organism Status: Acute Assessment and Plan: Recent pneumonia for which she was on antibiotics. This may have contributed to his diarrhea either because of the antibiotics or concern over possible C difficile infection. Stool cultures pending. GI Consult Note Consult date/time: 11/10/22 15:02 Reason for consult: bloody diarrhea HPI: Derrell Santos is a 82 year old male I am asked to see because of diarrhea with blood admixed. Patient has a history that he had a pacemaker placed at the beginning of October 2022. This was complicated by a DVT for which patient has recently been maintained on Eliquis anticoagulation. Because of debilitation he has recently been in rehab. While in rehab he developed a pneumonia requiring broad-spectrum antibiotic coverage. Subsequent to this, patient developed diarrhea. On Thursday began to have bloody diarrhea. For this reason he was admitted to [facility]. Patient currently denies any abdominal pain. He denies a fever. He has been limited liquid diet with no difficulties. His hemoglobin has remained essentially stable with a modest anemia that has been chronic this month. Family history is noncontributory. As stated patient has had no recent travel. CT scan suggests modest thickening throughout the entire length of the colon this was interpreted as showing possible colitis. Review of Systems Review of Systems: Review of systems noncontributory. [facility] Past Medical History Medical History Allergic rhinitis Anemia Benign prostatic hyperplasia Chronic atrial fibrillation Status post left atrial appendage ligation. Chronic gastroesophageal reflux disease Chronic obstructive pulmonary disease Coronary artery disease Status post 2 vessel bypass in February 2020. Diastolic congestive heart failure Hypertension Left leg DVT Mild intermittent asthma Right knee DJD Surgical History Surgical H
[2022-11-10] MEDS: FERROUS SULFATE 324 MG TABLET PO (17:20)
[2022-11-10 18:16] LABS: Hematocrit 32.2 % (42.0-52.0); Hemoglobin 10.2 g/dL (14.0-18.0)
[2022-11-10] MEDS: ATORVASTATIN 40 MG TABLET PO (20:37)
[2022-11-10] MEDS: DOCUSATE SODIUM 100 MG CAPSULE PO (20:38)
[2022-11-10 22:04] LABS: Toxigenic C. Diff POSITIVE (NEGATIVE)
[2022-11-11] MEDS: metroNIDAZOLE 500 MG/ISO 100ML 500 MG/100 ML BAG 100 MG IVPB (02:17)
[2022-11-11 05:55] VITALS: BP 144/65; PULSE 54; RESP 24; TEMP 36.3; O2SAT 96
[2022-11-11] MEDS: SODIUM CHLORIDE 0.9% IV 1,000 ML 75 ML IV CONT (06:17)
[2022-11-11 06:52] LABS: Hematocrit 29.1 % (42.0-52.0); Hemoglobin 9.2 g/dL (14.0-18.0); Mean Corpuscular HGB Conc 31.6 g/dl (32-36); Mean Corpuscular Hemoglobin 30.5 pg (26-34); Mean Corpuscular Volume 96.4 fl (80-100); Mean Platelet Volume 10.4 fl (7.4-10.4); Platelet Count Result 281 k/mm3 (150-375); Red Blood Count 3.02 M/mm3 (4.6-6.20); Red Cell Distribution Width 14.3 % (11.5-14.5); White Blood Count 9.6 K/mm3 (4.5-10.0)
[2022-11-11 07:18] LABS: Alanine Aminotransferase 18 U/L (6-50); Albumin Level 2.7 g/dL (3.5-5.1); Alkaline Phosphatase 58 U/L (38-126); Anion Gap 3 mmol/L (8-16); Aspartate Amino Transferase 22 U/L (17-59); Bilirubin,Total 0.5 mg/dL (0.2-1.3); Blood Urea Nitrogen 16 mg/dL (9-20); Calcium 7.4 mg/dL (8.4-10.2); Carbon Dioxide 27 mmol/L (22-30); Chloride 104 mmol/L (98-107); Estimated CRCL calculation 58 ml/min; Estimated Glomerular Filt Rate > 60; Glucose 91 mg/dL (65-110); Potassium 2.7 mmol/L (3.4-5.0); Sodium 134 mmol/L (137-145)
[2022-11-11] MEDS: FLUTICASONE/SALMETEROL 115-21 MCG INHALER 1 PUFF 2 PUFF INHALATION ×2 (08:32→20:46)
--- NOTE | 2022-11-11 09:12 | WPDGIPROGNO ---
Progress Note: A&P Assessment and Plan (1) C. difficile colitis: Code(s): A04.72 - Enterocolitis due to Clostridium difficile, not specified as recurrent Status: Acute Assessment and Plan: C difficile identified in stool sample. This is apparent etiology for colitis seen on CT scan and bloody diarrhea. Plan to treat with vancomycin. Given his overall poor condition would defer invasive testing such as colonoscopy given this finding. Defer restarting anticoagulation tilt infection is treated and bleeding has stopped. (2) Bloody diarrhea: Code(s): R19.7 - Diarrhea, unspecified Status: Acute Assessment and Plan: Bloody diarrhea on the basis of C difficile infection. Plan for antibiotic therapy. Monitor clinically. Avoid invasive testing at this time. 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 Reassess need for an anticoagulation subsequently. Patient apparently had a DVT previously. (4) Pneumonia: Code(s): J18.9 - Pneumonia, unspecified organism Status: Acute Assessment and Plan: Patient recovering from pneumonia. (5) Status post cardiac pacemaker procedure: Code(s): Z95.0 - Presence of cardiac pacemaker Status: Acute Subjective Date/time seen: 11/11/22 09:12 Interval history: Patient alert comfortable this morning. Diarrhea persists. Stool cultures now confirmed C difficile infection. No additional bleeding reported. Anticoagulation on hold. Review of Systems Review of Systems: Review of systems noncontributory. Exam Narrative: Physical exam reveals patient lying in bed. Appears somewhat weak. HEENT exam reveals no icterus. Lungs are clear to auscultation and percussion. Heart is without murmur or extra sounds. Abdomen bowel sounds present soft nontender. Objective Data Vital Signs Vital Signs: Vital Signs - 24 hr 11/10/22 14:00 11/10/22 20:32 11/10/22 21:40 Temperature 97.0 F L 97.6 F Pulse Rate 59 L 64 Respiratory Rate 20 17 20 Blood Pressure 123/55 L 135/65 Pulse Oximetry 98 96 Oxygen Delivery Oxygen Flow Rate 11/10/22 20:00 11/11/22 05:55 Temperature 97.3 F L Pulse Rate 54 L Respiratory Rate 24 H Blood Pressure 144/65 H Pulse Oximetry 98 96 Oxygen Delivery Nasal Cannula Oxygen Flow Rate 1 Intake/Output Intake/Output: Intake & Output 11/08/22 11/09/22 11/10/22 11/11/22 23:59 23:59 23:59 23:59 Intake Total 1250 3170 300 Output Total 2250 500 Balance 1250 920 -200 Meds/Results Medications: Active Medications Generic Name Dose Route Start Last Admin Trade Name Freq PRN Reason Stop Dose Admin Acetaminophen 650 mg 11/09/22 22:52 Acetaminophen 325 Mg Tablet PO Q6H PRN Pain Albuterol 1 puff 11/09/22 22:52 Albuterol Sulfate (*Sp) Aerosol 1 Puff INHALATION Q6H PRN shortness of breath or wheezing Atorvastatin Calcium 40 mg 11/10/22 21:00 11/10/22 20:37 Atorvastatin 40 Mg Tablet PO 40 mg HS [place] Administration Docusate Sodium 100 mg 11/10/22 09:00 11/10/22 20:38 Docusate Sodium 100 Mg Capsule PO 100 mg Q12HR [place] Administration Ferrous Sulfate 324 mg 11/10/22 08:00 11/10/22 17:20 Ferrous Sulfate 324 Mg Tablet PO 324 mg BIDWM [place] Administration Finasteride 5 mg 11/10/22 09:00 11/10/22 08:19 Finasteride 5 Mg Tablet PO 5 mg DAILY [place] Administration Furosemide 40 mg 11/10/22 09:00 11/10/22 08:19 Furosemide 40 Mg Tablet PO 40 mg DAILY [place] Administration Loratadine 10 mg 11/10/22 09:00 11/10/22 08:24 Loratadine 10 Mg Tablet PO 10 mg DAILY [place] Administration Ondansetron HCl 4 mg 11/09/22 17:49 Ondansetron Inj 4 Mg/2 Ml Vial IV PUSH Q4H PRN Nausea Pantoprazole Sodium 40 mg 11/09/22 09:00 11/10/22 20:38
[2022-11-11] MEDS: POTASSIUM CHLORIDE 20 MEQ TABLET.ER PO (09:31)
[2022-11-11] MEDS: FERROUS SULFATE 324 MG TABLET PO ×2 (09:31→17:06)
[2022-11-11] MEDS: FUROSEMIDE 40 MG TABLET PO (09:31)
[2022-11-11] MEDS: POTASSIUM CHLORIDE 20 MEQ PACKET (FOR LIQUID) 60 MEQ PO ×2 (09:31→15:47)
[2022-11-11] MEDS: FINASTERIDE 5 MG TABLET PO (09:31)
[2022-11-11] MEDS: DOCUSATE SODIUM 100 MG CAPSULE PO ×2 (09:31→19:59)
[2022-11-11] MEDS: PANTOPRAZOLE SODIUM IV 40 MG VIAL IV PUSH ×2 (09:32→19:59)
[2022-11-11] MEDS: SERTRALINE HCL 25 MG TABLET PO (09:32)
[2022-11-11] MEDS: LORATADINE 10 MG TABLET PO (10:00)
[2022-11-11] MEDS: ONDANSETRON INJ 4 MG/2 ML VIAL IV PUSH ×2 (10:00→17:08)
[2022-11-11] MEDS: VANCOMYCIN ORAL 125 MG/2.5 ML SYRUP PO ×2 (12:02→17:06)
--- NOTE | 2022-11-11 12:43 | PM.IMPN ---
Progress Note: A&P Assessment and Plan (1) Upper GI bleed: Code(s): K92.2 - Gastrointestinal hemorrhage, unspecified Status: Acute Assessment and Plan: The patient is tolerating a clear liquid diet. the patient has colitis which could be causing the bleed. Eliquis and aspirin on hold. The patient has a history of AFib and DVT, according to the daughter his primary care doctor was going to stop his Eliquis tomorrow anyway. GI consult and appreciate recommendations. Continue to monitor H&H every 6 hours. Hemoglobin and hematocrit have remained stable since arrival. Vital signs are stable. Protonix ordered. Hemoccult-positive. C. Diff positive. Stool studies pending (2) Colitis: Code(s): K52.9 - Noninfective gastroenteritis and colitis, unspecified Status: Acute Assessment and Plan: Stool studies pending C. Diff positive antibiotics changed to PO vancomycin 125mg Q6hr (3) Left leg DVT: Code(s): I82.402 - Acute embolism and thrombosis of unspecified deep veins of left lower extremity Status: Acute Assessment and Plan: According to the daughter she stated that the patient had been recheck for DVT and I did review the venous Dopplers from 10/27/2022 that was read as no deep vein thrombosis in the left lower limb. Resolution of prior thrombosis of the left peroneal vein. (4) Hypoxia: Code(s): R09.02 - Hypoxemia Status: Acute Assessment and Plan: The patient is currently on oxygen at 2 L per nasal cannula. Continue with patient's home inhalers. (5) CKD (chronic kidney disease) stage 3, GFR 30-59 ml/min: Code(s): N18.3 - Chronic kidney disease, stage 3 (moderate) Status: Chronic Assessment and Plan: The patient is at his baseline. (6) Chronic a-fib: Code(s): I48.20 - Chronic atrial fibrillation, unspecified Status: Chronic Assessment and Plan: The patient has paced beats. Eliquis is on hold due to the GI bleed (7) COPD (chronic obstructive pulmonary disease): Qualifiers: COPD type: unspecified COPD Qualified Code(s): J44.9 - Chronic obstructive pulmonary disease, unspecified Code(s): J44.9 - Chronic obstructive pulmonary disease, unspecified Status: Chronic Assessment and Plan: The patient is not usually on oxygen but he is on 2 L per nasal cannula here. Continue with inhalers from home. Subjective Date/time seen: 11/11/22 12:43 Interval history: Patient feeling well today. Patient is wanting to get out of bed. PT OT ordered. Patient is still having diarrhea. Patient denies nausea, vomiting, abdominal pain and fever. Review of Systems Review of Systems: All systems reviewed & are unremarkable except as noted in HPI and below Exam Narrative: GENERAL: Comfortable, no acute distress HENMT: moist mucous membranes EYES: EOM intact b/l NECK: no lymphadenopathy RESPIRATORY: clear to auscultation CARDIO: Irregular rhythm rate controlled GI: soft, nontender, bowel sounds present SKIN: no rashes EXTREMITIES: no edema, redness or tenderness Objective Data Vital Signs Vital Signs: Vital Signs - 24 hr 11/10/22 14:00 11/10/22 20:32 11/10/22 21:40 Temperature 97.0 F L 97.6 F Pulse Rate 59 L 64 Respiratory Rate 20 17 20 Blood Pressure 123/55 L 135/65 Pulse Oximetry 98 96 Oxygen Delivery Oxygen Flow Rate 11/10/22 20:00 11/11/22 05:55 Temperature 97.3 F L Pulse Rate 54 L Respiratory Rate 24 H Blood Pressure 144/65 H Pulse Oximetry 98 96 Oxygen Delivery Nasal Cannula Oxygen Flow Rate 1 Intake/Output Intake/Output: Intake & Output 11/08/22 11/09/22 11/10/22 11/11/22 23:59 23:59 23:59 23:59 Intake Total 1250 3170 300 Output Total 2250 500 Balance 1250 920 -200 Meds/Results Medications: Active Medications Generic Name Dose Route Sta
[2022-11-11 14:00] VITALS: BP 124/56; PULSE 60; RESP 24; TEMP 36.6; O2SAT 91
[2022-11-11] MEDS: ATORVASTATIN 40 MG TABLET PO (19:59)
[2022-11-11] MEDS: TAMSULOSIN HCL 0.4 MG CAPSULE 0.8 MG PO (19:59)
[2022-11-11 22:00] VITALS: BP 133/62; PULSE 61; RESP 20; TEMP 36.4; O2SAT 90
[2022-11-12] MEDS: VANCOMYCIN ORAL 125 MG/2.5 ML SYRUP PO ×4 (05:13→17:04)
[2022-11-12 05:53] VITALS: BP 132/66; PULSE 65; RESP 16; TEMP 36.1; O2SAT 96
[2022-11-12 06:11] LABS: Basophils Absolute Auto 0.1 K/mm3 (0.0-0.1); Basophils Percent Auto 0.4 % (0.2-1.2); Eosinophils Absolute Auto 0.1 K/mm3 (0-0.3); Eosinophils Percent Auto 1.2 % (0-4.4); Hematocrit 30.7 % (42.0-52.0); Hemoglobin 9.7 g/dL (14.0-18.0); Immature Granulocyte Absolute 0.08 K/mm3 (0.00-0.031); Immature Granulocyte Percent A 0.7 % (0-0.5); Lymphocytes Absolute Auto 1.77 K/mm3 (0.9-3.2); Lymphocytes Percent Auto 15.8 % (18.3-44.2); Mean Corpuscular HGB Conc 31.6 g/dl (32-36); Mean Corpuscular Hemoglobin 30.7 pg (26-34); Mean Corpuscular Volume 97.2 fl (80-100); Mean Platelet Volume 10.4 fl (7.4-10.4); Monocytes Percent Auto 9.2 % (2.6-8.5); Neutrophils Absolute Auto 8.1 K/mm3 (1.3-6.7); Neutrophils Percent Auto 72.7 % (45.5-73.1); Platelet Count Result 284 k/mm3 (150-375); Red Blood Count 3.16 M/mm3 (4.6-6.20); Red Cell Distribution Width 14.4 % (11.5-14.5); White Blood Count 11.2 K/mm3 (4.5-10.0)
[2022-11-12 06:23] LABS: Alanine Aminotransferase 18 U/L (6-50); Albumin Level 2.9 g/dL (3.5-5.1); Alkaline Phosphatase 58 U/L (38-126); Anion Gap 3 mmol/L (8-16); Aspartate Amino Transferase 25 U/L (17-59); Bilirubin,Total 0.6 mg/dL (0.2-1.3); Blood Urea Nitrogen 14 mg/dL (9-20); Calcium 7.8 mg/dL (8.4-10.2); Carbon Dioxide 26 mmol/L (22-30); Chloride 106 mmol/L (98-107); Estimated CRCL calculation 65 ml/min; Estimated Glomerular Filt Rate > 60; Glucose 104 mg/dL (65-110); Potassium 3.5 mmol/L (3.4-5.0); Sodium 135 mmol/L (137-145)
--- NOTE | 2022-11-12 07:55 | WPDGIPROGNO ---
Progress Note: A&P Assessment and Plan (1) C. difficile colitis: Code(s): A04.72 - Enterocolitis due to Clostridium difficile, not specified as recurrent Status: Acute Assessment and Plan: C difficile colitis appears to account for colitis seen on CT scan as well as his bloody diarrhea on presentation. At present would defer colonoscopy because of significant risk given his cardiac disease. Plan to complete course of vancomycin. Limited anticoagulation if at all feasible. Advance diet in early discharge suggested. Monitor hemoglobin which has been stable to date. (2) Bloody diarrhea: Code(s): R19.7 - Diarrhea, unspecified Status: Acute Assessment and Plan: Bloody diarrhea resolved on holding anticoagulation and treating infectious colitis. 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 If anticoagulation needs to be restarted would be best to hold for week to allow Resolution of colitis. (4) Pneumonia: Code(s): J18.9 - Pneumonia, unspecified organism Status: Acute Assessment and Plan: Patient dose now get in over recent bout of pneumonia. antibiotics to treat his pneumonia likely precipitated his C difficile infection. (5) Status post cardiac pacemaker procedure: Code(s): Z95.0 - Presence of cardiac pacemaker Status: Acute Subjective Date/time seen: 11/12/22 07:55 Interval history: Patient alert comfortable this morning. Appears to have more energy. Sitting upright in bed. He denies any diarrhea or bleeding ongoing. Tolerating diet. Review of Systems Review of Systems: Review of systems noncontributory. Exam Narrative: Physical exam reveals patient be alert. He is afebrile and anicteric. HEENT exam is unremarkable. Patient anicteric. Lungs are clear. Heart without murmur. Abdomen bowel sounds present soft nontender with no organomegaly. Objective Data Vital Signs Vital Signs: Vital Signs - 24 hr 11/11/22 14:00 11/11/22 20:00 11/11/22 22:00 Temperature 97.8 F 97.5 F L Pulse Rate 60 61 Respiratory Rate 24 H 20 Blood Pressure 124/56 L 133/62 Pulse Oximetry 91 90 Oxygen Delivery Room Air 11/12/22 05:53 Temperature 97.0 F L Pulse Rate 65 Respiratory Rate 16 Blood Pressure 132/66 Pulse Oximetry 96 Oxygen Delivery Intake/Output Intake/Output: Intake & Output 11/09/22 11/10/22 11/11/22 11/12/22 23:59 23:59 23:59 23:59 Intake Total 1250 3170 1160 Output Total 2250 500 Balance 1250 920 660 Meds/Results Medications: Active Medications Generic Name Dose Route Start Last Admin Trade Name Freq PRN Reason Stop Dose Admin Acetaminophen 650 mg 11/09/22 22:52 Acetaminophen 325 Mg Tablet PO Q6H PRN Pain Albuterol 1 puff 11/09/22 22:52 Albuterol Sulfate (*Sp) Aerosol 1 Puff INHALATION Q6H PRN shortness of breath or wheezing Atorvastatin Calcium 40 mg 11/10/22 21:00 11/11/22 19:59 Atorvastatin 40 Mg Tablet PO 40 mg HS [place] Administration Docusate Sodium 100 mg 11/10/22 09:00 11/11/22 19:59 Docusate Sodium 100 Mg Capsule PO 100 mg Q12HR [place] Administration Ferrous Sulfate 324 mg 11/10/22 08:00 11/11/22 17:06 Ferrous Sulfate 324 Mg Tablet PO 324 mg BIDWM [place] Administration Finasteride 5 mg 11/10/22 09:00 11/11/22 09:31 Finasteride 5 Mg Tablet PO 5 mg DAILY [place] Administration Furosemide 40 mg 11/10/22 09:00 11/11/22 09:31 Furosemide 40 Mg Tablet PO 40 mg DAILY [place] Administration Loratadine 10 mg 11/10/22 09:00 11/11/22 10:00 Loratadine 10 Mg Tablet PO 10 mg DAILY [place] Administration Ondansetron HCl 4 mg 11/09/22 17:49 11/11/22 17:08 Ondansetron Inj 4 Mg/2 Ml Vial IV PUSH 4 mg Q4H PRN Administration Nausea Pantoprazole Sodiu
[2022-11-12] MEDS: POTASSIUM CHLORIDE 20 MEQ TABLET.ER PO (08:07)
[2022-11-12] MEDS: FUROSEMIDE 40 MG TABLET PO (08:07)
[2022-11-12] MEDS: PANTOPRAZOLE SODIUM IV 40 MG VIAL IV PUSH ×2 (08:07→20:39)
[2022-11-12] MEDS: FERROUS SULFATE 324 MG TABLET PO ×2 (08:07→16:03)
[2022-11-12] MEDS: LORATADINE 10 MG TABLET PO (08:07)
[2022-11-12] MEDS: FINASTERIDE 5 MG TABLET PO (08:07)
[2022-11-12] MEDS: SERTRALINE HCL 25 MG TABLET PO (08:07)
[2022-11-12] MEDS: FLUTICASONE/SALMETEROL 115-21 MCG INHALER 1 PUFF 2 PUFF INHALATION ×2 (09:14→20:30)
[2022-11-12 09:16] VITALS: O2SAT 95
--- NOTE | 2022-11-12 10:15 | PM.IMPN ---
Progress Note: A&P Assessment and Plan (1) Upper GI bleed: Code(s): K92.2 - Gastrointestinal hemorrhage, unspecified Status: Acute Assessment and Plan: Came in with complaints of rectal bleeding Current H/H 9.7/30.7 Colitis most likely the reason for the GI Bleed Eliquis and aspirin on hold for now Hx of afib and DVT GI consult and appreciate recommendations. Continue to monitor H&H every 6 hours Vital signs are stable. Protonix ordered. Hemoccult-positive. C. Diff positive. Stool studies not detected (2) Colitis: Code(s): K52.9 - Noninfective gastroenteritis and colitis, unspecified Status: Acute Assessment and Plan: Stool studies pending C. Diff positive antibiotics changed to PO vancomycin 125mg Q6hr Secondary to C diff Continue treatment GI on board (3) Left leg DVT: Code(s): I82.402 - Acute embolism and thrombosis of unspecified deep veins of left lower extremity Status: Acute Assessment and Plan: Venous doppler from last visit did not show DVT Xarelto decreased at that time No longer a problem No swelling, redness, or pain noted (4) Hypoxia: Code(s): R09.02 - Hypoxemia Status: Acute Assessment and Plan: Currently on RA Continue with patient's home inhalers. Resolved (5) CKD (chronic kidney disease) stage 3, GFR 30-59 ml/min: Code(s): N18.3 - Chronic kidney disease, stage 3 (moderate) Status: Chronic Assessment and Plan: BUN/Cr 14/0.80 Stable Avoid nephrotoxic medication (6) Chronic a-fib: Code(s): I48.20 - Chronic atrial fibrillation, unspecified Status: Chronic Assessment and Plan: The patient has paced beats. Xarelto stopped (7) COPD (chronic obstructive pulmonary disease): Qualifiers: COPD type: unspecified COPD Qualified Code(s): J44.9 - Chronic obstructive pulmonary disease, unspecified Code(s): J44.9 - Chronic obstructive pulmonary disease, unspecified Status: Chronic Assessment and Plan: Stable on room air Continue home medications Trend respiratory status Time Spent With Patient Time: 51 minutes Time with patient: Greater than 35 minutes Subjective Date/time seen: 11/12/22 1015 Interval history: 11/12/22 1015 Patient is sitting in the chair. He stated that he is feeling ok. He is complaining of nausea. He stated that he was still having diarrhea. He denies any sweats fevers or chills. He does appear very weak, and tired. 11/11/22? 12:43 Patient feeling well today.? Patient is wanting to get out of bed.? PT OT ordered.? Patient is still having diarrhea.? Patient denies nausea, vomiting, abdominal pain and fever. 11/10/22? 11:54 Patient lying in bed comfortably while being interviewed.? Patient pleasantly confused.? Patient denies any pain but does states that he had some diarrhea this morning.? This is able to be collected and sent down for culture.? Patient denies fever, dizziness, chest pain, nausea, vomiting, shortness of breath. 11/09/22? 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 The patient came to the emergency room with complaints of rectal bleeding.? The patient is currently at [facility] after being hospitalized for pneumonia.? The patient has been dealing with constipation and was started on stool softeners and MiraLax.? The patient had diarrhea over last 3 days.? The patient had to episode bloody diarrhea today with dark tarry stools.? His stool softeners were finally stopped yesterday.? The patient is very hard of hearing and has 2 daughters at the bedside her answering questions for him.? His H&H was 11.0 in 34.2.? Repeat was 9.9 and 30.5.? This lasts only 9.8 and 30.7.? The patient was found to be negative for influenza a B and COVID.? The patient was given
--- NOTE | 2022-11-12 10:15 | P.PNIM_ITS ---
Progress Note: A&P Assessment and Plan (1) Upper GI bleed: Code(s): K92.2 - Gastrointestinal hemorrhage, unspecified Status: Acute Assessment and Plan: * Came in with complaints of rectal bleeding * Current H/H 9.7/30.7 * Colitis most likely the reason for the GI Bleed * Eliquis and aspirin on hold for now * Hx of afib and DVT * GI consult and appreciate recommendations. * Continue to monitor H&H every 6 hours * Vital signs are stable. * Protonix ordered. * Hemoccult-positive. * C. Diff positive. * Stool studies not detected (2) Colitis: Code(s): K52.9 - Noninfective gastroenteritis and colitis, unspecified Status: Acute Assessment and Plan: * Stool studies pending * C. Diff positive * antibiotics changed to PO vancomycin 125mg Q6hr * Secondary to C diff * Continue treatment * GI on board (3) Left leg DVT: Code(s): I82.402 - Acute embolism and thrombosis of unspecified deep veins of left lower extremity Status: Acute Assessment and Plan: * Venous doppler from last visit did not show DVT * Xarelto decreased at that time * No longer a problem * No swelling, redness, or pain noted (4) Hypoxia: Code(s): R09.02 - Hypoxemia Status: Acute Assessment and Plan: * Currently on RA * Continue with patient's home inhalers. * Resolved (5) CKD (chronic kidney disease) stage 3, GFR 30-59 ml/min: Code(s): N18.3 - Chronic kidney disease, stage 3 (moderate) Status: Chronic Assessment and Plan: * BUN/Cr 14/0.80 * Stable * Avoid nephrotoxic medication (6) Chronic a-fib: Code(s): I48.20 - Chronic atrial fibrillation, unspecified Status: Chronic Assessment and Plan: * The patient has paced beats. * Xarelto stopped (7) COPD (chronic obstructive pulmonary disease): Qualifiers: COPD type: unspecified COPD Qualified Code(s): J44.9 - Chronic obstructive pulmonary disease, unspecified Code(s): J44.9 - Chronic obstructive pulmonary disease, unspecified Status: Chronic Assessment and Plan: * Stable * on room air * Continue home medications * Trend respiratory status Time Spent With Patient Time: 51 minutes Time with patient: Greater than 35 minutes Subjective Date/time seen: 11/12/22 1015 Interval history: 11/12/22 1015 Patient is sitting in the chair. He stated that he is feeling ok. He is complaining of nausea. He stated that he was still having diarrhea. He denies any sweats fevers or chills. He does appear very weak, and tired. 11/11/22? 12:43 Patient feeling well today.? Patient is wanting to get out of bed.? PT OT ordered.? Patient is still having diarrhea.? Patient denies nausea, vomiting, abdominal pain and fever. 11/10/22? 11:54 Patient lying in bed comfortably while being interviewed.? Patient pleasantly confused.? Patient denies any pain but does states that he had some diarrhea this morning.? This is able to be collected and sent down for culture.? Patient denies fever, dizziness, chest pain, nausea, vomiting, shortness of breath. 11/09/22? 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 The patient came to the emergency room with complaints of rectal bleeding.? The patient is currently at [facility]
[2022-11-12 14:00] VITALS: BP 140/70; PULSE 59; RESP 16; TEMP 36.1; O2SAT 96
[2022-11-12] MEDS: ACETAMINOPHEN 325 MG TABLET 650 MG PO (16:03)
[2022-11-12 20:35] VITALS: O2SAT 94
[2022-11-12] MEDS: TAMSULOSIN HCL 0.4 MG CAPSULE 0.8 MG PO (20:37)
[2022-11-12] MEDS: DOCUSATE SODIUM 100 MG CAPSULE PO (20:38)
[2022-11-12] MEDS: ATORVASTATIN 40 MG TABLET PO (20:39)
[2022-11-12 22:00] VITALS: BP 128/71; PULSE 59; RESP 18; TEMP 36.2; O2SAT 96
[2022-11-13] MEDS: VANCOMYCIN ORAL 125 MG/2.5 ML SYRUP PO ×5 (00:02→23:53)
[2022-11-13 06:00] VITALS: BP 138/70; PULSE 59; RESP 18; TEMP 36.2; O2SAT 95
[2022-11-13 06:15] LABS: Basophils Absolute Auto 0.1 K/mm3 (0.0-0.1); Basophils Percent Auto 0.5 % (0.2-1.2); Eosinophils Absolute Auto 0.2 K/mm3 (0-0.3); Hematocrit 29.9 % (42.0-52.0); Hemoglobin 9.5 g/dL (14.0-18.0); Immature Granulocyte Absolute 0.11 K/mm3 (0.00-0.031); Lymphocytes Absolute Auto 2.09 K/mm3 (0.9-3.2); Lymphocytes Percent Auto 18.2 % (18.3-44.2); Mean Corpuscular HGB Conc 31.8 g/dl (32-36); Mean Corpuscular Hemoglobin 30.1 pg (26-34); Mean Corpuscular Volume 94.6 fl (80-100); Mean Platelet Volume 10.5 fl (7.4-10.4); Monocytes Absolute Auto 1.1 K/mm3 (0.1-0.6); Monocytes Percent Auto 9.5 % (2.6-8.5); Neutrophils Absolute Auto 7.9 K/mm3 (1.3-6.7); Neutrophils Percent Auto 68.8 % (45.5-73.1); Platelet Count Result 287 k/mm3 (150-375); Red Blood Count 3.16 M/mm3 (4.6-6.20); Red Cell Distribution Width 14.2 % (11.5-14.5); White Blood Count 11.5 K/mm3 (4.5-10.0)
[2022-11-13 06:37] LABS: Alanine Aminotransferase 17 U/L (6-50); Albumin Level 2.9 g/dL (3.5-5.1); Alkaline Phosphatase 57 U/L (38-126); Anion Gap 4 mmol/L (8-16); Aspartate Amino Transferase 20 U/L (17-59); Bilirubin,Total 0.5 mg/dL (0.2-1.3); Blood Urea Nitrogen 11 mg/dL (9-20); Calcium 7.6 mg/dL (8.4-10.2); Carbon Dioxide 26 mmol/L (22-30); Chloride 105 mmol/L (98-107); Estimated CRCL calculation 58 ml/min; Estimated Glomerular Filt Rate > 60; Glucose 98 mg/dL (65-110); Magnesium 1.9 mg/dL (1.6-2.3); Potassium 3.2 mmol/L (3.4-5.0); Sodium 135 mmol/L (137-145)
[2022-11-13 07:10] VITALS: PULSE 60; RESP 18; O2SAT 93
[2022-11-13] MEDS: FLUTICASONE/SALMETEROL 115-21 MCG INHALER 1 PUFF 2 PUFF INHALATION ×2 (07:10→20:17)
[2022-11-13] MEDS: POTASSIUM CHLORIDE 20 MEQ TABLET 60 MEQ PO (09:22)
[2022-11-13] MEDS: LORATADINE 10 MG TABLET PO (09:23)
[2022-11-13] MEDS: FERROUS SULFATE 324 MG TABLET PO ×2 (09:23→17:09)
[2022-11-13] MEDS: PANTOPRAZOLE SODIUM IV 40 MG VIAL IV PUSH ×2 (09:24→21:52)
[2022-11-13] MEDS: SERTRALINE HCL 25 MG TABLET PO (09:24)
[2022-11-13] MEDS: FUROSEMIDE 40 MG TABLET PO (09:24)
[2022-11-13] MEDS: FINASTERIDE 5 MG TABLET PO (09:24)
--- NOTE | 2022-11-13 10:45 | PM.IMPN ---
Progress Note: A&P Assessment and Plan (1) Upper GI bleed: Code(s): K92.2 - Gastrointestinal hemorrhage, unspecified Status: Acute Assessment and Plan: Came in with complaints of rectal bleeding Current H/H 9.5/29.9 Colitis most likely the reason for the GI Bleed Xarelto and aspirin on hold for now Hx of afib and DVT GI consult and appreciate recommendations. Continue to monitor H&H every 6 hours Vital signs are stable. Protonix ordered. Hemoccult-positive. C. Diff positive. Stool studies not detected any bacterias (2) C. difficile colitis: Code(s): A04.72 - Enterocolitis due to Clostridium difficile, not specified as recurrent Status: Acute Assessment and Plan: Stool studies did not detect any bacterias C. Diff positive antibiotics changed to PO vancomycin 125mg Q6hr Start banatrol and probiotics Stated that he is still having multiple bowel movements and does not think it really has changed Continue treatment GI on board (3) Hypoxia: Code(s): R09.02 - Hypoxemia Status: Acute Assessment and Plan: Currently on RA Continue with patient's home inhalers. Resolved (4) CKD (chronic kidney disease) stage 3, GFR 30-59 ml/min: Code(s): N18.3 - Chronic kidney disease, stage 3 (moderate) Status: Chronic Assessment and Plan: BUN/Cr 11/0.9 Stable Avoid nephrotoxic medication Continue to trend (5) Chronic a-fib: Code(s): I48.20 - Chronic atrial fibrillation, unspecified Status: Chronic Assessment and Plan: The patient has paced beats. Xarelto stopped (6) COPD (chronic obstructive pulmonary disease): Qualifiers: COPD type: unspecified COPD Qualified Code(s): J44.9 - Chronic obstructive pulmonary disease, unspecified Code(s): J44.9 - Chronic obstructive pulmonary disease, unspecified Status: Chronic Assessment and Plan: Stable on room air Continue home medications Trend respiratory status Time Spent With Patient Time: 51 minutes Time with patient: Greater than 35 minutes Subjective Date/time seen: 11/13/22 10:45 Interval history: 11/13/22 1045 Patient was lying in the bed and stated that he was getting lightheaded and dizzy and that is when he lay down. Patient stated that he has been having the same amount of diarrhea since admission. He did state that he feels very weak. He also seems to be having some shortness of breath as he is not able to complete all sentences without taking a break. Overall he is doing okay. He also seems to be getting his color back. 11/12/22 1015 Patient is sitting in the chair. He stated that he is feeling ok. He is complaining of nausea. He stated that he was still having diarrhea. He denies any sweats fevers or chills. He does appear very weak, and tired. 11/11/22? 12:43 Patient feeling well today.? Patient is wanting to get out of bed.? PT OT ordered.? Patient is still having diarrhea.? Patient denies nausea, vomiting, abdominal pain and fever. 11/10/22? 11:54 Patient lying in bed comfortably while being interviewed.? Patient pleasantly confused.? Patient denies any pain but does states that he had some diarrhea this morning.? This is able to be collected and sent down for culture.? Patient denies fever, dizziness, chest pain, nausea, vomiting, shortness of breath. 11/09/22? 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 The patient came to the emergency room with complaints of rectal bleeding.? The patient is currently at [facility] after being hospitalized for pneumonia.? The patient has been dealing with constipation and was started on stool softeners and MiraLax.? The patient had diarrhea over last 3 days.? The patient had to episode bloody diarrhea today with dark tarry stools.? His stool softener
--- NOTE | 2022-11-13 10:45 | P.PNIM_ITS ---
Progress Note: A&P Assessment and Plan (1) Upper GI bleed: Code(s): K92.2 - Gastrointestinal hemorrhage, unspecified Status: Acute Assessment and Plan: * Came in with complaints of rectal bleeding * Current H/H 9.5/29.9 * Colitis most likely the reason for the GI Bleed * Xarelto and aspirin on hold for now * Hx of afib and DVT * GI consult and appreciate recommendations. * Continue to monitor H&H every 6 hours * Vital signs are stable. * Protonix ordered. * Hemoccult-positive. * C. Diff positive. * Stool studies not detected any bacterias (2) C. difficile colitis: Code(s): A04.72 - Enterocolitis due to Clostridium difficile, not specified as recurrent Status: Acute Assessment and Plan: * Stool studies did not detect any bacterias * C. Diff positive * antibiotics changed to PO vancomycin 125mg Q6hr * Start banatrol and probiotics * Stated that he is still having multiple bowel movements and does not think it really has changed * Continue treatment * GI on board (3) Hypoxia: Code(s): R09.02 - Hypoxemia Status: Acute Assessment and Plan: * Currently on RA * Continue with patient's home inhalers. * Resolved (4) CKD (chronic kidney disease) stage 3, GFR 30-59 ml/min: Code(s): N18.3 - Chronic kidney disease, stage 3 (moderate) Status: Chronic Assessment and Plan: * BUN/Cr 11/0.9 * Stable * Avoid nephrotoxic medication * Continue to trend (5) Chronic a-fib: Code(s): I48.20 - Chronic atrial fibrillation, unspecified Status: Chronic Assessment and Plan: * The patient has paced beats. * Xarelto stopped (6) COPD (chronic obstructive pulmonary disease): Qualifiers: COPD type: unspecified COPD Qualified Code(s): J44.9 - Chronic obstructive pulmonary disease, unspecified Code(s): J44.9 - Chronic obstructive pulmonary disease, unspecified Status: Chronic Assessment and Plan: * Stable * on room air * Continue home medications * Trend respiratory status Time Spent With Patient Time: 51 minutes Time with patient: Greater than 35 minutes Subjective Date/time seen: 11/13/22 10:45 Interval history: 11/13/22 1045 Patient was lying in the bed and stated that he was getting lightheaded and dizzy and that is when he lay down. Patient stated that he has been having the same amount of diarrhea since admission. He did state that he feels very weak. He also seems to be having some shortness of breath as he is not able to complete all sentences without taking a break. Overall he is doing okay. He also seems to be getting his color back. 11/12/22 1015 Patient is sitting in the chair. He stated that he is feeling ok. He is complaining of nausea. He stated that he was still having diarrhea. He denies any sweats fevers or chills. He does appear very weak, and tired. 11/11/22? 12:43 Patient feeling well today.? Patient is wanting to get out of bed.? PT OT ordered.? Patient is still having diarrhea.? Patient denies nausea, vomiting, abdominal pain and fever. 11/10/22? 11:54 Patient lying in bed comfortably while being interviewed.? Patient pleasantly confused.? Patient denies any pain but does states that he had some diarrhea this morning.? This is able to be collected and sent down for culture.? Patient denies fever, dizzin
[2022-11-13 11:12] LABS: Iron 29 ug/dL (49-181)
[2022-11-13 11:22] LABS: Percent Iron Saturation 12 % (20-50)
[2022-11-13 11:53] LABS: Transferrin 134 mg/dL (206-381)
--- NOTE | 2022-11-13 12:06 | PCNFU ---
Nutrition Follow-Up Complete: Inadequate energy intake related to NPO status as evidenced by diet orders Goal:Meet estimated needs. Pt is meeting goal. New goal: resolve GI issues, diarrhea Pt current nutrition is Regular, Ensure compact BID. Nutrition recommendation: Add banitrol BID Last recorded weight is 79.5 kg. Bowel Motility: +BM 11/13 Labs Reviewed: Hgb:9.5, HCT:29.9, Alb:2.9, NA:135, K:3.2 Meds Noted: lasix, colace, KCL, Zofran, Protonix Skin: WNL Additional Notes: pt on a regular diet, intake 50-100% of meals. C/o diarrhea. Recommend banatrol BID. Monitor for diet orders, intake, wt, labs. Follow up in 5 days.
[2022-11-13 13:02] LABS: Folic Acid 10.4 ng/mL (2.76->20)
[2022-11-13] MEDS: SACCHAROMYCES BOULARDII 250 MG CAPSULE PO ×2 (13:42→17:09)
[2022-11-13] MEDS: POTASSIUM CHLORIDE 20 MEQ TABLET.ER PO (13:42)
[2022-11-13] MEDS: IRON SUCROSE COMPLEX 500 MG in SODIUM CHLORIDE 0.9% IV 250 ML 78.57 MG IVPB (13:43)
[2022-11-13 14:00] VITALS: BP 108/68; PULSE 77; RESP 16; TEMP 35.9; O2SAT 96
[2022-11-13 20:15] VITALS: PULSE 75; O2SAT 96
[2022-11-13] MEDS: TAMSULOSIN HCL 0.4 MG CAPSULE 0.8 MG PO (21:52)
[2022-11-13] MEDS: ATORVASTATIN 40 MG TABLET PO (21:52)
[2022-11-13 22:00] VITALS: BP 138/71; PULSE 68; RESP 21; TEMP 36; O2SAT 94
[2022-11-14] MEDS: VANCOMYCIN ORAL 125 MG/2.5 ML SYRUP PO ×2 (05:55→13:03)
[2022-11-14 06:00] VITALS: BP 140/73; PULSE 64; RESP 20; TEMP 36.1; O2SAT 93
[2022-11-14 06:10] LABS: Basophils Absolute Auto 0.1 K/mm3 (0.0-0.1); Basophils Percent Auto 0.6 % (0.2-1.2); Eosinophils Absolute Auto 0.2 K/mm3 (0-0.3); Eosinophils Percent Auto 1.5 % (0-4.4); Hematocrit 30.3 % (42.0-52.0); Hemoglobin 9.7 g/dL (14.0-18.0); Immature Granulocyte Absolute 0.13 K/mm3 (0.00-0.031); Immature Granulocyte Percent A 0.9 % (0-0.5); Lymphocytes Absolute Auto 1.62 K/mm3 (0.9-3.2); Lymphocytes Percent Auto 11.8 % (18.3-44.2); Mean Corpuscular Hemoglobin 30.8 pg (26-34); Mean Corpuscular Volume 96.2 fl (80-100); Mean Platelet Volume 10.3 fl (7.4-10.4); Monocytes Absolute Auto 1.3 K/mm3 (0.1-0.6); Monocytes Percent Auto 9.3 % (2.6-8.5); Neutrophils Absolute Auto 10.4 K/mm3 (1.3-6.7); Neutrophils Percent Auto 75.9 % (45.5-73.1); Platelet Count Result 312 k/mm3 (150-375); Red Blood Count 3.15 M/mm3 (4.6-6.20); Red Cell Distribution Width 14.5 % (11.5-14.5); White Blood Count 13.7 K/mm3 (4.5-10.0)
[2022-11-14 06:20] LABS: Alanine Aminotransferase 19 U/L (6-50); Albumin Level 2.9 g/dL (3.5-5.1); Alkaline Phosphatase 59 U/L (38-126); Anion Gap 2 mmol/L (8-16); Aspartate Amino Transferase 25 U/L (17-59); Bilirubin,Total 0.5 mg/dL (0.2-1.3); Blood Urea Nitrogen 11 mg/dL (9-20); Calcium 7.8 mg/dL (8.4-10.2); Carbon Dioxide 28 mmol/L (22-30); Chloride 108 mmol/L (98-107); Estimated CRCL calculation 65 ml/min; Estimated Glomerular Filt Rate > 60; Glucose 102 mg/dL (65-110); Magnesium 1.9 mg/dL (1.6-2.3); Potassium 3.9 mmol/L (3.4-5.0); Sodium 138 mmol/L (137-145)
--- NOTE | 2022-11-14 07:31 | WPDGIPROGNO ---
Progress Note: A&P Assessment and Plan (1) C. difficile colitis: Code(s): A04.72 - Enterocolitis due to Clostridium difficile, not specified as recurrent Status: Acute Assessment and Plan: Patient with C difficile colitis. This appears to been the etiology for bloody diarrhea. Antibiotic with vancomycin now in progress. Because of diarrhea will add Questran. No need to proceed with colonoscopy given the diagnosis, And cessation of bleeding. Patient very frail at present. Status post recent pacemaker insertion. Would continue to avoid anticoagulation for some time and possible. Anticipate 10 day course of vancomycin. (2) Chronic anticoagulation: Code(s): Z79.01 - [employer] (current) use of anticoagulants Status: Acute Assessment and Plan: Patient on anticoagulation because of recent DVT. DVT appears resolved. Reconsider need for anticoagulation if possible. (3) Status post cardiac pacemaker procedure: Code(s): Z95.0 - Presence of cardiac pacemaker Status: Acute (4) Pneumonia: Code(s): J18.9 - Pneumonia, unspecified organism Status: Acute (5) Atrial fibrillation: Qualifiers: Atrial fibrillation type: unspecified chronic Qualified Code(s): I48.20 - Chronic atrial fibrillation, unspecified Code(s): I48.91 - Unspecified atrial fibrillation Status: Acute Subjective Date/time seen: 11/14/22 07:31 Interval history: Patient continues with some loose diarrhea stools but overall this is improved. No significant bleeding noted. Review of Systems Review of Systems: Review of systems noncontributory. Exam Narrative: Physical exam reveals abdomen to be benign. Lungs are clear. Heart without murmur. Objective Data Vital Signs Vital Signs: Vital Signs - 24 hr 11/13/22 09:25 11/13/22 14:00 11/13/22 20:15 Temperature 96.7 F L Pulse Rate 77 75 Respiratory Rate 16 Blood Pressure 108/68 Pulse Oximetry 96 96 Oxygen Delivery Room Air Room Air 11/13/22 20:00 11/13/22 22:00 11/14/22 06:00 Temperature 96.8 F L 97 F L Pulse Rate 68 64 Respiratory Rate 21 H 20 Blood Pressure 138/71 140/73 Pulse Oximetry 94 93 Oxygen Delivery Room Air Intake/Output Intake/Output: Intake & Output 11/11/22 11/12/22 11/13/22 11/14/22 23:59 23:59 23:59 23:59 Intake Total 1160 660 855 Output Total 500 275 400 Balance 660 904 580 -400 Meds/Results Medications: Active Medications Generic Name Dose Route Start Last Admin Trade Name Freq PRN Reason Stop Dose Admin Acetaminophen 650 mg 11/09/22 22:52 11/12/22 16:03 Acetaminophen 325 Mg Tablet PO 650 mg Q6H PRN Administration Pain Albuterol 1 puff 11/09/22 22:52 Albuterol Sulfate (*Sp) Aerosol 1 Puff INHALATION Q6H PRN shortness of breath or wheezing Atorvastatin Calcium 40 mg 11/10/22 21:00 11/13/22 21:52 Atorvastatin 40 Mg Tablet PO 40 mg HS [place] Administration Calcium Carbonate 200 mg 11/12/22 17:11 Calcium Carbonate (Tums) 500 Mg (200 Mg Elemental) PO Q6H PRN Indigestion Ferrous Sulfate 324 mg 11/10/22 08:00 11/13/22 17:09 Ferrous Sulfate 324 Mg Tablet PO 324 mg BIDWM [place] Administration Finasteride 5 mg 11/10/22 09:00 11/13/22 09:24 Finasteride 5 Mg Tablet PO 5 mg DAILY [place] Administration Furosemide 40 mg 11/10/22 09:00 11/13/22 09:24 Furosemide 40 Mg Tablet PO 40 mg DAILY [place] Administration Loratadine 10 mg 11/10/22 09:00 11/13/22 09:23 Loratadine 10 Mg Tablet PO 10 mg DAILY [place] Administration Miconazole Nitrate 1 applic 11/13/22 15:00 11/13/22 21:52 Miconazole 2% Antifungal Ointment 56 Gm TOPICAL 1 applic Q12HR [place] Administration Ondansetron HCl 4 mg 11/09/22 17:49 11/11/22 17:08 Ondansetron Inj 4 Mg/2 Ml Vial IV PUSH 4 mg Q4H PRN Administration Nausea Pantoprazole Sodium 40 mg 11/09/22 09:00 11/13/22 21:5
--- NOTE | 2022-11-14 07:34 | P.PNIM_ITS ---
Progress Note: A&P Assessment and Plan (1) Upper GI bleed: Code(s): K92.2 - Gastrointestinal hemorrhage, unspecified Status: Acute Assessment and Plan: * Came in with complaints of rectal bleeding * Current H/H 9.7/30.3 * Colitis most likely the reason for the GI Bleed * Xarelto and aspirin on hold for now * Hx of afib and DVT * GI consult and appreciate recommendations. * Vital signs are stable. * Protonix ordered. * Hemoccult-positive. * C. Diff positive. * Stool studies not detected any bacteria (2) C. difficile colitis: Code(s): A04.72 - Enterocolitis due to Clostridium difficile, not specified as recurrent Status: Acute Assessment and Plan: * Stool studies did not detect any bacterias * C. Diff positive * antibiotics changed to PO vancomycin 125mg Q6hr * Start banatrol and probiotics * Stated that he is still having multiple bowel movements and does not think it really has changed * Continue treatment * GI on board (3) Hypoxia: Code(s): R09.02 - Hypoxemia Status: Acute Assessment and Plan: * Currently on RA * Continue with patient's home inhalers. * Resolved (4) CKD (chronic kidney disease) stage 3, GFR 30-59 ml/min: Code(s): N18.3 - Chronic kidney disease, stage 3 (moderate) Status: Chronic Assessment and Plan: * BUN/Cr 11/0.80 * Stable * Avoid nephrotoxic medication * Continue to trend (5) Chronic a-fib: Code(s): I48.20 - Chronic atrial fibrillation, unspecified Status: Chronic Assessment and Plan: * The patient has paced beats. * Xarelto stopped (6) COPD (chronic obstructive pulmonary disease): Qualifiers: COPD type: unspecified COPD Qualified Code(s): J44.9 - Chronic obstructive pulmonary disease, unspecified Code(s): J44.9 - Chronic obstructive pulmonary disease, unspecified Status: Chronic Assessment and Plan: * Stable * on room air * Continue home medications * Trend respiratory status Time Spent With Patient Time: 48 minutes Time with patient: Greater than 35 minutes Subjective Date/time seen: 11/14/22 07:34 Interval history: 11/14/22 11/13/22 1045 Patient was lying in the bed and stated that he was getting lightheaded and dizzy and that is when he lay down. Patient stated that he has been having the same amount of diarrhea since admission. He did state that he feels very weak. He also seems to be having some shortness of breath as he is not able to complete all sentences without taking a break. Overall he is doing okay. He also seems to be getting his color back. 11/12/22 1015 Patient is sitting in the chair. He stated that he is feeling ok. He is complaining of nausea. He stated that he was still having diarrhea. He denies any sweats fevers or chills. He does appear very weak, and tired. 11/11/22? 12:43 Patient feeling well today.? Patient is wanting to get out of bed.? PT OT ordered.? Patient is still having diarrhea.? Patient denies nausea, vomiting, a bdominal pain and fever. 11/10/22? 11:54 Patient lying in bed comfortably while being interviewed.? Patient pleasantly confused.? Patient denies any pain but does states that he had some diarrhea this morning.? This is able to be collected and sent down for culture.? Patient denies fever, dizziness, chest pa
--- NOTE | 2022-11-14 07:34 | PM.IMPN ---
Progress Note: A&P Assessment and Plan (1) Upper GI bleed: Code(s): K92.2 - Gastrointestinal hemorrhage, unspecified Status: Acute Assessment and Plan: Came in with complaints of rectal bleeding Current H/H 9.7/30.3 Colitis most likely the reason for the GI Bleed Xarelto and aspirin on hold for now Hx of afib and DVT GI consult and appreciate recommendations. Vital signs are stable. Protonix ordered. Hemoccult-positive. C. Diff positive. Stool studies not detected any bacteria (2) C. difficile colitis: Code(s): A04.72 - Enterocolitis due to Clostridium difficile, not specified as recurrent Status: Acute Assessment and Plan: Stool studies did not detect any bacterias C. Diff positive antibiotics changed to PO vancomycin 125mg Q6hr Start banatrol and probiotics Stated that he is still having multiple bowel movements and does not think it really has changed Continue treatment GI on board (3) Hypoxia: Code(s): R09.02 - Hypoxemia Status: Acute Assessment and Plan: Currently on RA Continue with patient's home inhalers. Resolved (4) CKD (chronic kidney disease) stage 3, GFR 30-59 ml/min: Code(s): N18.3 - Chronic kidney disease, stage 3 (moderate) Status: Chronic Assessment and Plan: BUN/Cr 11/0.80 Stable Avoid nephrotoxic medication Continue to trend (5) Chronic a-fib: Code(s): I48.20 - Chronic atrial fibrillation, unspecified Status: Chronic Assessment and Plan: The patient has paced beats. Xarelto stopped (6) COPD (chronic obstructive pulmonary disease): Qualifiers: COPD type: unspecified COPD Qualified Code(s): J44.9 - Chronic obstructive pulmonary disease, unspecified Code(s): J44.9 - Chronic obstructive pulmonary disease, unspecified Status: Chronic Assessment and Plan: Stable on room air Continue home medications Trend respiratory status Time Spent With Patient Time: 48 minutes Time with patient: Greater than 35 minutes Subjective Date/time seen: 11/14/22 07:34 Interval history: 11/14/22 11/13/22 1045 Patient was lying in the bed and stated that he was getting lightheaded and dizzy and that is when he lay down. Patient stated that he has been having the same amount of diarrhea since admission. He did state that he feels very weak. He also seems to be having some shortness of breath as he is not able to complete all sentences without taking a break. Overall he is doing okay. He also seems to be getting his color back. 11/12/22 1015 Patient is sitting in the chair. He stated that he is feeling ok. He is complaining of nausea. He stated that he was still having diarrhea. He denies any sweats fevers or chills. He does appear very weak, and tired. 11/11/22? 12:43 Patient feeling well today.? Patient is wanting to get out of bed.? PT OT ordered.? Patient is still having diarrhea.? Patient denies nausea, vomiting, abdominal pain and fever. 11/10/22? 11:54 Patient lying in bed comfortably while being interviewed.? Patient pleasantly confused.? Patient denies any pain but does states that he had some diarrhea this morning.? This is able to be collected and sent down for culture.? Patient denies fever, dizziness, chest pain, nausea, vomiting, shortness of breath. 11/09/22? 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 The patient came to the emergency room with complaints of rectal bleeding.? The patient is currently at [facility] after being hospitalized for pneumonia.? The patient has been dealing with constipation and was started on stool softeners and MiraLax.? The patient had diarrhea over last 3 days.? The patient had to episode bloody diarrhea today with dark tarry stools.? His stool softeners were finally stopped
[2022-11-14] MEDS: FLUTICASONE/SALMETEROL 115-21 MCG INHALER 1 PUFF 2 PUFF INHALATION (07:44)
[2022-11-14 07:48] VITALS: PULSE 65; RESP 16
[2022-11-14 07:49] VITALS: O2SAT 95
[2022-11-14] MEDS: PANTOPRAZOLE SODIUM IV 40 MG VIAL IV PUSH (08:03)
[2022-11-14] MEDS: FUROSEMIDE 40 MG TABLET PO (08:03)
[2022-11-14] MEDS: SACCHAROMYCES BOULARDII 250 MG CAPSULE PO ×3 (08:03→16:12)
[2022-11-14] MEDS: POTASSIUM CHLORIDE 20 MEQ TABLET.ER PO (08:04)
[2022-11-14] MEDS: LORATADINE 10 MG TABLET PO (08:04)
[2022-11-14] MEDS: SERTRALINE HCL 25 MG TABLET PO (08:04)
[2022-11-14] MEDS: FERROUS SULFATE 324 MG TABLET PO ×2 (08:04→16:12)
[2022-11-14] MEDS: FINASTERIDE 5 MG TABLET PO (08:05)
[2022-11-14] MEDS: CHOLESTYRAMINE LIGHT 4 GM POWD.PACK PO (09:19)
[2022-11-14 12:34] VITALS: BP 134/69; BP 152/70; BP 156/80; PULSE 69; RESP 20; TEMP 35.8; O2SAT 96
[2022-11-14 13:48] VITALS: BP 152/79; PULSE 84; RESP 18; TEMP 35.6; O2SAT 99
--- NOTE | 2022-11-14 16:00 | PM.DS ---
DS: Admitting Diagnosis Discharge Date 11/14/22 1600 Admitting Diagnosis GI bleed, anemia, C.Diff colitis DS: Summary Hospital Course Hospital Course: Patient is an 82 year old male with a past medical history of DVTs, Afib, anemia, PNA who presented to the ED with complaints of rectal bleeding. Occult stool was positive, and GI was consulted. CT did show colitis, and WBC noted to be 15.2. C. diff came back positive. Diarrhea is better. He was requiring oxygen however, has been weaned to room air. Xarelto has been stopped. H/H has been stable. Anemia labs redrawn and indicated iron needs. Iron infusion was given. Diet has been advanced and patient has been able to tolerate regular diet. Labs and vital signs have been on trend and seem to be stable. He has been working with PT/OT and has been able to get to the chair. Currently he does not have any complaints. He is stable for discharge at this time. He denies any chest pain, shortness of breath, nausea, vomiting, diarrhea, or constipation. He will be going back to rehab at this time. 1600 re-evaluated patient. No current complaints. Spoke with his daughter who agrees with DC at this time. All questions answered and plan of care updated. Status at Discharge Functional status at discharge: uses cane/walker Overall status at discharge: patient is progressing back to baseline Time Spent with Patient Time attestation: Total time spent providing and/or coordinating discharge services: 56 minutes Time spent: Greater than 30 minutes Specific discharge activities: Diagnostic testing, chart review, developing a treatment plan, education, care coordination documentation, physical exam, result review Exam Narrative: General: well-nourished, well-appearing 82-year-old male, sitting up in chair, comfortable, NARD Neuro: awake, alert and oriented x4, speech clear, no focal neuro deficits noted HEENMT: normocephalic, atraumatic, EOMI, sclerae anicteric, moist oral mucosa Respiratory: Clear to auscultation bilaterally without crackles, rhonchi or wheezes, nonlabored breathing Cardio: regular rate, paced rhythm with S1-S2 Abdomen: nondistended, normoactive bowel sounds, soft, nontender to palpation Extremities: no edema, erythema, or tenderness to palpation, DP pulses 2+ bilaterally Skin: no rashes or lesions, warm and dry, skin is very pallor Psych: appropriate mood and affect, judgment and insight intact DS: Data Data Completed and Pending Labs on day of discharge: Labs from last 24 hours 11/14/22 11/14/22 11/13/22 05:43 05:43 05:54 WBC 13.7 H RBC 3.15 L Hgb 9.7 L Hct 30.3 L MCV 96.2 MCH 30.8 MCHC 32.0 RDW 14.5 Plt Count 312 MPV 10.3 Immature Gran % (Auto) 0.9 H Neut % (Auto) 75.9 H Lymph % (Auto) 11.8 L [place] % (Auto) 9.3 H Eos % (Auto) 1.5 Baso % (Auto) 0.6 Lymph # (Auto) 1.62 [place] # (Auto) 1.3 H Eos # (Auto) 0.2 Baso # (Auto) 0.1 Abs Immat Gran (auto) 0.13 H Absolute Neuts (auto) 10.4 H Absolute Nucleated RBC 0.0 Nucleated RBC % 0.0 Sodium 138 Potassium 3.9 Chloride 108 H Carbon Dioxide 28 Anion Gap 2 L BUN 11 Creatinine 0.80 Estim Creat Clear Calc 65 Estimated GFR > 60 Glucose 102 Calcium 7.8 L Magnesium 1.9 Iron TIBC % Saturation Transferrin 134 L Ferritin Total Bilirubin 0.5 AST 25 ALT 19 Alkaline Phosphatase 59 Total Protein 5.0 L Albumin 2.9 L Vitamin B12 Folate 11/13/22 11/12/22 05:54 05:29 WBC RBC Hgb Hct MCV MCH MCHC RDW Plt Count MPV Immature Gran % (Auto) Neut % (Auto) Lymph % (Auto) [place] % (Auto) Eos % (Auto) Baso % (Auto) Lymph # (Auto) [place] # (Auto) Eos # (Auto) Baso # (Auto) Abs Immat Gran (auto) Absolute Neuts (auto) Absolute Nucleated RBC Nucleated RBC % Sodium Potassium Chloride Carbon Dioxide Anion Gap
[2022-11-14 16:37] LABS: EDCOVIDSCREEN Negative (Negative)
== END 2022-11-14 17:00 | DRG 372 ==
LOC: ANHED 03:22 → ANH3MEDSUR 18:42
PROVIDERS: Emergency Medicine; General Practice; Internal Medicine Critical Care Medicine; Nurse Practitioner; Admitting Provider Internal Medicine; Emergency Provider Physician Assistant; PCP Family Medicine; Visit Provider Nurse Practitioner
DX: A04.72 Enterocolitis due to Clostridium difficile, not specified as recurrent (principal); I48.20 Chronic atrial fibrillation, unspecified; I50.32 Chronic diastolic (congestive) heart failure; N18.30 Chronic kidney disease, stage 3 unspecified; I25.10 Atherosclerotic heart disease of native coronary artery without angina pectoris; J44.9 Chronic obstructive pulmonary disease, unspecified; J45.20 Mild intermittent asthma, uncomplicated; R09.02 Hypoxemia; D50.9 Iron deficiency anemia, unspecified; D63.8 Anemia in other chronic diseases classified elsewhere; N40.0 Benign prostatic hyperplasia without lower urinary tract symptoms; M19.90 Unspecified osteoarthritis, unspecified site; K21.9 Gastro-esophageal reflux disease without esophagitis; Z20.822 Contact with and (suspected) exposure to COVID-19; Z79.01 Long term (current) use of anticoagulants; Z95.1 Presence of aortocoronary bypass graft; Z95.0 Presence of cardiac pacemaker; Z87.891 Personal history of nicotine dependence; Z86.718 Personal history of other venous thrombosis and embolism; Z79.82 Long term (current) use of aspirin
CPT/HCPCS: 36415; 71045; 74177; 80053; 81003; 82274; 82607; 82728; 82746; 83540; 83550; 83735; 84132; 84443; 84466; 85014; 85018; 85025; 85027; 85610; 85730; 86850; 86900; 86901; 87045; 87269; 87272; 87426; 87427; 87493; 87636; 89055; 94640; 96361; 96365; 96366; 96367; 96368; 96375; 96376; 97110; 97161; 97166; 97530; 97535; 99285; A9270; C9113; C9803; G0378; J0131; J0696; J1756; J2405; J7030; J7050; Q9967

== ENCOUNTER 2022-12-01 03:26 | Emergency (ER) | payer MEDICARE, SELFPAY ==
--- NOTE | ~2022-12-01 | CT_ITS ---
Noncontrast CT scan of the cervical spine Technique: Multiple contiguous axial [address] images of the cervical spine were obtained and rec onstructed in 2D sagittal and coronal planes on the acquisition scanner. Dose reduction technique was used on this scan by utilizing automated exposure control, adjustment of the mA and/or kV according to patient size. Clinical History: Pain Findings: No fractures or dislocations. There is advanced degenerative disc narrowing at C5-C6 and C 6-C7, uncovertebral degenerative changes at these levels. There is probable right neural foraminal na rrowing at C3-C4. Right neural foraminal narrowing at C5-C6. There are disc bulges at C3-C4, C4-C5. N o prevertebral soft tissue swelling. Partially visualized left pleural effusion noted. Impression: No fracture or subluxation of the cervical spine. Degenerative spondylitic changes, as detailed above. Left pleural effusion is partially imaged. Reviewed, dictated and finalized at [facility]. LE HOME SET UP PERSON Impression: No fracture or subluxation of the cervical spine. Degenerative spondylitic changes, as detailed above. Left pleural effusion is partially imaged.
--- NOTE | ~2022-12-01 | CT_ITS ---
Non-contrast Head CT History: Status post fall, head trauma Technique: Axial non-contrast imaging of the brain was performed. Dose reduction technique was used on this scan by utilizing automated exposure control and iterative reconstruction technique. The dose -length product (DLP) was 681.00 mGy-cm. Findings: There is no evidence of intracranial hemorrhage, mass lesion, or acute infarct. Brain par enchyma appears normal. The ventricles and subarachnoid spaces are normal in size. The calvarium ap pears normal. The visualized paranasal sinuses and mastoid air cells are clear. Impression: No significant abnormality seen. Reviewed, dictated and finalized at [facility]. TER ASSISTANT Impression: No significant abnormality seen.
[2022-12-01 03:25] VITALS: BP 161/78; PULSE 82; RESP 21; TEMP 37.2; O2SAT 94
[2022-12-01] MEDS: TETANUS,DIPHTHERIA,AC PERTUSSIS ADULT (0.5 ML) BOOSTRIX IM (03:42)
--- NOTE | 2022-12-01 03:51 | ED.GENADULT ---
HPI - General Adult General Chief complaint: Fall Stated complaint: fall Time Seen by Provider: 12/01/22 03:30 History of Present Illness HPI narrative: Patient 82-year-old gentleman who presents emerged department with chief complaint of head injury patient reports that he was up this evening and lost his balance and fell. The patient denies loss of consciousness but reports that he has pain in his neck and reports that he has a laceration to the top of his scalp. Patient denies nausea vomiting reports that he thinks he may be on a blood thinner but is unsure. Related Data Home Medications Medication Instructions Recorded Confirmed acetaminophen 325 mg tablet 650 mg PO Q6H PRN Pain 02/20/20 11/09/22 sennosides 8.6 mg capsule (senna) 8.6 mg PO Q12H PRN Constipation 05/04/20 11/09/22 fexofenadine 180 mg tablet 180 mg PO DAILY 10/07/22 11/09/22 tamsulosin 0.4 mg capsule 0.8 mg PO HS 10/12/22 11/09/22 atorvastatin 40 mg tablet 40 mg PO HS 10/25/22 11/09/22 furosemide 40 mg tablet 40 mg PO DAILY 10/25/22 11/09/22 lidocaine 4 % topical patch 1 patch topical DAILY 10/25/22 11/09/22 (Lidocaine Pain Relief) Allergies Allergy/AdvReac Type Severity Reaction Status Date / Time No Known Allergies Allergy Verified 12/01/22 03:41 Review of Systems Review of Systems: A 10 system review of systems was completed on the patient and is negative except for what is stated in the HPI. Nursing and ancillary documentation was reviewed. [facility] Past Medical History Medical History Allergic rhinitis Anemia Benign prostatic hyperplasia Chronic atrial fibrillation Status post left atrial appendage ligation. Chronic gastroesophageal reflux disease Chronic obstructive pulmonary disease Coronary artery disease Status post 2 vessel bypass in February 2020. Diastolic congestive heart failure Hypertension Left leg DVT Mild intermittent asthma Right knee DJD Surgical History Surgical History History of cardiac cath 02/02/2020: 90% Left Main lesion History of cardiac catheterization History of removal of cyst Posterior neck. History of two vessel coronary artery bypass graft (02/2020) Status post ligation of left atrial appendage Status post placement of cardiac pacemaker Family History Family History Mother Family history of cardiovascular disease Hypertension Acute myocardial infarction Father Malignant neoplasm of prostate Family history of Parkinson's disease Social History Social History Social History: [facility] He has Two daughters . He has recently and is having difficulty living home alone. Surrogate medical decision maker: Tala Jiang, daughter. Code status: Full code. Smoking packs per day: 1 Smoking cigarettes per day: 20.0 Years smoked: 20 Smoking pack-years: 20.00 Smoking status: Former smoker Tobacco type: cigarettes Second hand tobacco smoke exposure: No Smoking end date: 10/05/91 Alcohol intake: never Drinks per week: 0 Substance use: never Substance use type: does not use Lack of Transportation: No Lack of Food: Never True Current Housing: I Have Housing Concerned About Future Housing: No Difficulty Paying Gas/Electric Bills: No Difficulty Paying for Meds: No Currently Unemployed: No Education: Associate Degree Difficulty w/ Childcare or Family Care: No Additional living arrangements comments: as of September 2022. Lives in independent living at [facility]. Occupation/Education: retired Additional occupation/education comments: Retired from the [employer]. Spiritual care concerns: No Agree to blood products: Yes Exam Scotty
[2022-12-01] MEDS: ACETAMINOPHEN 500 MG TABLET 1000 MG PO (04:26)
[2022-12-01 04:34] VITALS: PULSE 62; RESP 20; O2SAT 94
[2022-12-01 05:00] VITALS: BP 146/73; PULSE 67; RESP 17; O2SAT 92
[2022-12-01 05:07] VITALS: O2SAT 88
[2022-12-01 05:08] VITALS: O2SAT 98
== END 2022-12-01 05:58 ==
PROVIDERS: Emergency Provider Emergency Medicine; PCP Family Medicine
DX: S01.01XA Laceration without foreign body of scalp, initial encounter (principal); W01.0XXA Fall on same level from slipping, tripping and stumbling without subsequent striking against object, initial encounter; I25.10 Atherosclerotic heart disease of native coronary artery without angina pectoris; J44.9 Chronic obstructive pulmonary disease, unspecified; I11.0 Hypertensive heart disease with heart failure; I50.30 Unspecified diastolic (congestive) heart failure; K21.9 Gastro-esophageal reflux disease without esophagitis; J45.20 Mild intermittent asthma, uncomplicated; D64.9 Anemia, unspecified; N40.0 Benign prostatic hyperplasia without lower urinary tract symptoms; Z95.1 Presence of aortocoronary bypass graft; Z86.718 Personal history of other venous thrombosis and embolism; Z87.891 Personal history of nicotine dependence; Z23 Encounter for immunization; Z79.82 Long term (current) use of aspirin; Z79.51 Long term (current) use of inhaled steroids
CPT/HCPCS: 12002; 70450; 72125; 90471; 90715; 99284; A9270

== ENCOUNTER 2022-12-04 08:11 | Outpatient (NON) | payer MEDICARE, SELFPAY ==
[2022-12-04 13:29] LABS: Toxigenic C. Diff POSITIVE (NEGATIVE)
== END 2022-12-04 08:12 | disposition home or self-care (01) ==
LOC: ANHLAB 08:12
PROVIDERS: PCP Family Medicine; Visit Provider Family Medicine
DX: R19.7 Diarrhea, unspecified (principal)
CPT/HCPCS: 87493

== ENCOUNTER 2022-12-10 13:50 | Outpatient (CLI) | payer MEDICARE, SELFPAY ==
[2022-12-10 14:50] LABS: Anion Gap 5 mmol/L (8-16); Blood Urea Nitrogen 14 mg/dL (9-20); Calcium 8.3 mg/dL (8.4-10.2); Carbon Dioxide 28 mmol/L (22-30); Chloride 102 mmol/L (98-107); Estimated Glomerular Filt Rate > 60; Glucose 100 mg/dL (65-110); Potassium 3.6 mmol/L (3.4-5.0); Sodium 135 mmol/L (137-145)
== END 2022-12-10 13:51 | disposition home or self-care (01) ==
PROVIDERS: PCP Family Medicine; Visit Provider Family Medicine
DX: I50.9 Heart failure, unspecified (principal)
CPT/HCPCS: 36415; 80048

== ENCOUNTER 2022-12-12 10:57 | Emergency (ER) | payer MEDICARE, SELFPAY ==
--- NOTE | ~2022-12-12 | XR_ITS ---
EXAMINATION: XR hip RT 2V w AP pelvis DATE: 12/12/2022 13:14 INDICATION: Right hip pain. Fall. TECHNIQUE: An anteroposterior view of the pelvis and 2 views of right hip were obtained. COMPARISON: None. FINDINGS: Bone alignment is normal. No fracture. There is moderate osteoarthritis of the hips. There are surgical clips from left inguinal hernia repair. There is moderate lumbar spondylosis. There is a surgical clip in right thigh. IMPRESSION: 1. Moderate osteoarthritis of the hips. Reviewed, dictated and finalized at location A. NICAL DIRECTOR
--- NOTE | ~2022-12-12 | CT_ITS ---
EXAMINATION: CT brain wo con DATE: 12/12/2022 13:22 INDICATION: Head injury. Fall. TECHNIQUE: Computed tomography (CT) of the head was performed without intravenous contrast. The mA wa s adjusted according to patient size. Iterative reconstruction technique was employed. The dose-lengt h product was 605.33 mGy-cm. COMPARISON: Head CT 12/01/2022 FINDINGS: There are scattered areas of low attenuation in the cerebral white matter. There is no intr acranial hemorrhage, acute infarction, or abnormal intracranial mass lesion. The ventricles are eliseo l in size. There are likely changes of ocular lens replacement surgeries. There is mucosal thickenin g in the paranasal sinuses. The mastoid air cells are normal. IMPRESSION: 1. Stable extensive nonspecific cerebral white matter disease, which likely represents chronic small vessel ischemic disease. Reviewed, dictated and finalized at location A. UNT INSTALLER IMPRESSION: 1. Stable extensive nonspecific cerebral white matter disease, which likely rep resents chronic small vessel ischemic disease.
--- NOTE | ~2022-12-12 | CT_ITS ---
Noncontrast CT scan of the cervical spine Technique: Multiple contiguous axial [address] images of the cervical spine were obtained and rec onstructed in 2D sagittal and coronal planes on the acquisition scanner. Dose reduction technique was used on this scan by utilizing automated exposure control, adjustment of the mA and/or kV according to patient size. Clinical History: Pain COMPARISON: 12/01/2022 Findings: No acute fracture or subluxations seen. Osseous alignment is stable from prior exam. Advanc ed degenerative disc narrowing at C5-C6 and C6-C7 is unchanged. Stable degenerative change at the art iculation of the odontoid process with the anterior arch of C1. Probable multilevel disc bulges are p resent. No prevertebral soft tissue swelling. Small left pleural effusion partially imaged. Impression: No fracture or subluxation of the cervical spine. Stable degenerative spondylosis. Partially imaged small left pleural effusion. Reviewed, dictated and finalized at [facility]. IANCE SERVICER Impression: No fracture or subluxation of the cervical spine. Stable degenerative spondylosis. Partially imaged small left pleural effusion.
[2022-12-12 11:03] VITALS: BP 137/74; PULSE 78; RESP 16; TEMP 36.9; O2SAT 98
--- NOTE | 2022-12-12 11:28 | ED.GENADULT ---
HPI - General Adult General Chief complaint: Fall Stated complaint: GLF, hit head Time Seen by Provider: 12/12/22 11:00 History of Present Illness HPI narrative: 82-year-old male presenting to the emergency department for evaluation having a ground-level fall. Patient states he was walking to the bathroom was not using a walker, which he typically is supposed to use, and had a ground-level fall. Patient states he did strike his head but denies any loss of consciousness. Patient states he does have some left lateral muscular tenderness to his neck. Patient states he is also having some right hip pain. Patient states he was not ambulatory after the fall. Patient also is reporting a skin tear to his right arm but denies any right arm pain. Patient did have a fall last week during which he struck his head and was evaluated at that time. Related Data Home Medications Medication Instructions Recorded Confirmed acetaminophen 325 mg tablet 650 mg PO Q6H PRN Pain 02/20/20 12/10/22 sennosides 8.6 mg capsule (senna) 8.6 mg PO Q12H PRN Constipation 05/04/20 12/10/22 fexofenadine 180 mg tablet 180 mg PO DAILY 10/07/22 12/10/22 tamsulosin 0.4 mg capsule 0.8 mg PO HS 10/12/22 12/10/22 atorvastatin 40 mg tablet 40 mg PO HS 10/25/22 12/10/22 lidocaine 4 % topical patch 1 patch topical DAILY 10/25/22 12/10/22 (Lidocaine Pain Relief) Allergies Allergy/AdvReac Type Severity Reaction Status Date / Time No Known Allergies Allergy Verified 12/12/22 11:09 Review of Systems Review of Systems: CONSTITUTIONAL: Denies fever, chills, or sweats. EYES: Denies visual changes, redness, or discharge. ENT: Denies rhinorrhea, congestion, sore throat, or otalgia. CARDIOVASCULAR: Denies chest pain, palpitations, or edema. RESPIRATORY: Denies cough or dyspnea. GASTROINTESTINAL: Denies abdominal pain, nausea, vomiting, or diarrhea. GENITOURINARY: Denies dysuria or hematuria. SKIN: See HPI MUSCULOSKELETAL: Denies back pain, joint pain, or myalgia. NEUROLOGIC: Denies headache, numbness, or weakness. [facility] Past Medical History Medical History Allergic rhinitis Anemia Benign prostatic hyperplasia Chronic atrial fibrillation Status post left atrial appendage ligation. Chronic gastroesophageal reflux disease Chronic obstructive pulmonary disease Coronary artery disease Status post 2 vessel bypass in February 2020. Diastolic congestive heart failure Hypertension Left leg DVT Mild intermittent asthma Right knee DJD Surgical History Surgical History History of cardiac cath 02/02/2020: 90% Left Main lesion History of cardiac catheterization History of removal of cyst Posterior neck. History of two vessel coronary artery bypass graft (02/2020) Status post ligation of left atrial appendage Status post placement of cardiac pacemaker Family History Family History Mother Family history of cardiovascular disease Hypertension Acute myocardial infarction Father Malignant neoplasm of prostate Family history of Parkinson's disease Social History Social History Social History: He is currently at [facility] rehab facility. He has Two daughters . He has recently and is having difficulty living home alone. Surrogate medical decision maker: Tala Jiang, daughter. Code status: Full code. Smoking packs per day: 1 Smoking cigarettes per day: 20.0 Years smoked: 20 Smoking pack-years: 20.00 Smoking status: Former smoker Tobacco type: cigarettes Second hand tobacco smoke exposure: No Smoking end date: 10/05/91 Alcohol intake: never Drinks per week: 0 Substance use: never Substance use type: does not use Lack of Transportation: No Lack of Food: Never True Current Housing: I Have Hous
--- NOTE | 2022-12-12 14:41 | PCCCNOTE ---
met with patient and 2 daughters bedside. patient resides at [facility]. at this time, states that there is no medical reason to admit patient. patients daughters have been speaking with [facility] admin. daughters asked CC to fax face sheet and H&P. CC faxed to [place]. daughters state they plan to privately pay for a SNF bed at [facility]. Daughters stated that the admin they are speaking with states there is a male bed available. daughters plan to transport patient. CC will continue to follow.
[2022-12-12 15:48] LABS: SARS-CoV-2 RNA PCR Negative
[2022-12-12 16:23] VITALS: BP 127/72; PULSE 72; RESP 16; O2SAT 99
== END 2022-12-12 16:24 ==
PROVIDERS: Emergency Provider Emergency Medicine; PCP Family Medicine
DX: S09.90XA Unspecified injury of head, initial encounter (principal); S51.011A Laceration without foreign body of right elbow, initial encounter; R19.7 Diarrhea, unspecified; Z20.822 Contact with and (suspected) exposure to COVID-19; I48.20 Chronic atrial fibrillation, unspecified; I25.10 Atherosclerotic heart disease of native coronary artery without angina pectoris; I50.30 Unspecified diastolic (congestive) heart failure; I11.0 Hypertensive heart disease with heart failure; J44.9 Chronic obstructive pulmonary disease, unspecified; J45.20 Mild intermittent asthma, uncomplicated; N40.0 Benign prostatic hyperplasia without lower urinary tract symptoms; K21.9 Gastro-esophageal reflux disease without esophagitis; Z95.1 Presence of aortocoronary bypass graft; Z95.0 Presence of cardiac pacemaker; Z86.718 Personal history of other venous thrombosis and embolism; Z86.2 Personal history of diseases of the blood and blood-forming organs and certain disorders involving the immune mechanism; Z87.891 Personal history of nicotine dependence; Z79.82 Long term (current) use of aspirin; M16.0 Bilateral primary osteoarthritis of hip; W18.39XA Other fall on same level, initial encounter
CPT/HCPCS: 70450; 72125; 73502; 99284; U0003; U0005

== ENCOUNTER 2023-01-31 18:16 | Emergency (ER) | payer MEDICARE, SELFPAY ==
[2023-01-31] VITALS (19 sets, daily range): BP systolic 102–145; BP diastolic 53–73; PULSE 60–67; RESP 12–24; O2SAT 93–100
--- NOTE | ~2023-01-31 | XR_ITS ---
EXAMINATION: XR elbow RT min 3V DATE: 01/31/2023 19:49 INDICATION: Right elbow pain with movement post fall TECHNIQUE: Anteroposterior, two oblique and lateral views of the right elbow were obtained. COMPARISON: None. FINDINGS: Alignment is normal. No fracture. Mild osteoarthritis at the right elbow. Soft tissues are unremarkab le. No evident elbow joint effusion. IMPRESSION: 1. Mild osteoarthritis at the right elbow with no acute osseous normality. Reviewed, dictated and finalized at location A.
--- NOTE | ~2023-01-31 | XR_ITS ---
EXAMINATION: XR chest 1V DATE: 01/31/2023 19:49 INDICATION: Cough TECHNIQUE: frontal view of the chest was obtained. COMPARISON: Chest radiograph dated 11/09/2022 FINDINGS: Is new significant elevation the right hemidiaphragm. Likely very small bilateral pleural effusions. Subtle airspace opacities at the left mid and right upper lung zones. No pneumothorax. Cardiomegaly. Median sternotomy wires, ostial markers and mediastinal surgical clips consistent with prior coronary artery bypass grafting. Single lead cardiac pacemaker with distal tip near the apex of the right jakub tricle. Left atrial appendage clip. Cholecystectomy clips in right upper quadrant. IMPRESSION: 1. New significant elevation the right hemidiaphragm. 2. Subtle airspace opacities in the right upper and left mid lung zones which could represent atelect asis, pneumonia or pulmonary edema. 3. Very small bilateral pleural effusions. 4. Cardiomegaly. Reviewed, dictated and finalized at location A. IMPRESSION: 1. New significant elevation the right hemidiaphragm. 2. Subtle airspace opacities in the right upper and left mid lung zones which c ould represent atelectasis, pneumonia or pulmonary edema. 3. Very small bilateral pleural effusions. 4. Cardiomegaly.
--- NOTE | ~2023-01-31 | XR_ITS ---
EXAMINATION: XR hip RT 2V w AP pelvis DATE: 01/31/2023 19:49 INDICATION: Right hip pain post fall from wheelchair TECHNIQUE: Anteroposterior view of the pelvis and anteroposterior and frog-leg lateral views of the r ight hip were obtained. COMPARISON: None. FINDINGS: Comminuted fracture of the right innominate bone with mildly displaced fractures of the right pubic b lizbeth and inferior pubic ramus and likely transverse fracture extending across the cephalad aspect of t he right acetabulum with approximately 1.8 cm medial displacement of the mid inferior right acetabulu m. There is corresponding medial migration of the right femoral head in the nondependent acetabular s ocket. There is also 4 mm displacement of a more caudal second fracture across the quadrilateral plat e of the central acetabulum. No other fractures identified. Moderate osteoarthritis at the bilateral sacroiliac joints. Mild osteoarthritis at the bilateral hips. Moderate to severe lumbar spondylosis. Surgical clip at the right groin. Postoperative change of prior left inguinal hernia repair. IMPRESSION: 1. Comminuted fracture of the right acetabulum, pubic body and inferior pubic ramus with medial displ acement of the mid inferior right acetabulum and corresponding medial migration of the right femoral head. Reviewed, dictated and finalized at location A. IMPRESSION: 1. Comminuted fracture of the right acetabulum, pubic body and inferior pubic r amus with medial displacement of the mid inferior right acetabulum and correspo nding medial migration of the right femoral head.
--- NOTE | ~2023-01-31 | CT_ITS ---
EXAMINATION: CT brain wo con DATE: 01/31/2023 19:41 INDICATION: Head injury post fall TECHNIQUE: Computed tomography (CT) of the head was performed without intravenous contrast. Sagittal and coronal reconstructions were performed. The mA was adjusted according to patient size. Iterative reconstruction technique was employed. The dose-length product was 681.00 mGy-cm. COMPARISON: head CT dated 12/12/2022 FINDINGS: Moderate-sized right frontal scalp hematoma. No calvarial fracture. Small subarachnoid hemorrhages al mariana the anterior left and right frontal lobes. No acute infarction. There is moderate scattered white matter hypoattenuation consistent with chronic small vessel ischemic disease. Symmetric prominence o f the sulci consistent with mild age-appropriate diffuse cerebral volume loss. Ventricles are normal and symmetric. No mass/mass effect. Changes of bilateral intraocular lens replacement. The orbits, pa ranasal sinuses and mastoid air cells are normal. Prominent mucosal thickening and dependently layeri ng mucus bilaterally in the paranasal sinuses. IMPRESSION: 1. Small bilateral frontal subarachnoid hemorrhages. Dr. Lockett discussed these findings with Dr. Naresh santos at 7:56 PM. 2. Age-related changes including mild diffuse volume loss and moderate scattered white matter hypoatt enuation consistent with chronic small vessel ischemic disease. Reviewed, dictated and finalized at location A. IMPRESSION: 1. Small bilateral frontal subarachnoid hemorrhages. Dr. Lockett discussed the se findings with Dr. Alarcon at 7:56 PM. 2. Age-related changes including mild diffuse volume loss and moderate scattere d white matter hypoattenuation consistent with chronic small vessel ischemic di sease.
--- NOTE | ~2023-01-31 | CT_ITS ---
EXAMINATION: CT cervical spine wo con DATE: 01/31/2023 19:41 INDICATION: Fall with head injury TECHNIQUE: Computed tomography (CT) of the cervical spine was performed without intravenous contrast. Automated exposure control and iterative reconstruction technique were employed. The dose-length pro duct was 401.52 mGy-cm. COMPARISON: None FINDINGS: 27 degrees upper thoracic levoscoliosis. Cervical alignment is normal. Vertebral body heights are nor mal. Severe disc height loss at C5-C6 and C6-C7. Mild disc height loss at C2-C3 and C3-C4. Posterior disc osteophyte complexes at C6-C7 and more prominently at C5-C6 result in mild central canal stenosi s. Moderate to severe uncovertebral osteoarthritis at each of these levels also contribute to mild ne ural foraminal stenosis bilaterally at C5-C6 and on the right at C6-C7. There is bilateral multilevel mild to moderate cervical facet osteoarthritis. Ventricles 2 additional mild neural foraminal stenos is bilaterally at C3-C4 and C4-C5. Atherosclerotic calcification is at the bilateral carotid bulbs. C ervical soft tissues are otherwise unremarkable. Mild streaky and groundglass opacities in the bilate ral upper lungs which could represent atelectasis, pulmonary edema or pneumonia. 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 Postoperative change of prior med aden sternotomy and coronary artery bypass grafting. IMPRESSION: 1. Severe cervical spondylosis. No acute osseous abnormality. Reviewed, dictated and finalized at location A.
--- NOTE | 2023-01-31 19:01 | ECG_ITS ---
Measurements Intervals [place] Rate: 59 P: MA: 0 QRS: -76 QRSD: 218 T: 99 QT: 538 QTc: 537 Interpretive Statements ELECTRONIC VENTRICULAR PACEMAKER ABNORMAL RHYTHM ECG COMPARED TO ECG 10/25/2022 03:20:18 NO SIGNIFICANT CHANGES Electronically Signed On 02-01-2023 13:38:44 CDT by Jones Baxter M.D.
--- NOTE | 2023-01-31 19:19 | ED.FALL ---
HPI - Fall General Chief Complaint: Fall Stated Complaint: fall Time Seen by Provider: 01/31/23 19:09 History of Present Illness HPI Narrative: Patient is an 83-year-old male with a history of CHF, COPD, hypertension, hyperlipidemia, A-fib presenting after a fall. Patient lives in a care facility and was found on the floor next to his wheelchair. States he does not remember falling. States that this sometimes happens. He is complaining of right elbow pain. He denies headache or neck or back pain. Denies chest pain or abdominal pain. Patient's daughter is at bedside and states that he has had a cough lately for which he has been on antibiotics. Denies recent fevers, palpitations, abdominal pain, nausea or vomiting, diarrhea, dysuria, leg swelling. Related Data Home Medications Medication Instructions Recorded Confirmed acetaminophen 325 mg tablet 650 mg PO Q6H PRN Pain 02/20/20 12/10/22 sennosides 8.6 mg capsule (senna) 8.6 mg PO Q12H PRN Constipation 05/04/20 12/10/22 fexofenadine 180 mg tablet 180 mg PO DAILY 10/07/22 12/10/22 tamsulosin 0.4 mg capsule 0.8 mg PO HS 10/12/22 12/10/22 atorvastatin 40 mg tablet 40 mg PO HS 10/25/22 12/10/22 lidocaine 4 % topical patch 1 patch topical DAILY 10/25/22 12/10/22 (Lidocaine Pain Relief) Allergies Allergy/AdvReac Type Severity Reaction Status Date / Time No Known Allergies Allergy Verified 12/12/22 11:09 Review of Systems Review of Systems: All systems reviewed & are unremarkable except as noted in HPI and below PMFSH Past Medical History Medical History Allergic rhinitis Anemia Benign prostatic hyperplasia Chronic atrial fibrillation Status post left atrial appendage ligation. Chronic gastroesophageal reflux disease Chronic obstructive pulmonary disease Coronary artery disease Status post 2 vessel bypass in February 2020. Diastolic congestive heart failure Hypertension Left leg DVT Mild intermittent asthma Right knee DJD Surgical History Surgical History History of cardiac cath 02/02/2020: 90% Left Main lesion History of cardiac catheterization History of removal of cyst Posterior neck. History of two vessel coronary artery bypass graft (02/2020) Status post ligation of left atrial appendage Status post placement of cardiac pacemaker Family History Family History Mother Family history of cardiovascular disease Hypertension Acute myocardial infarction Father Malignant neoplasm of prostate Family history of Parkinson's disease Social History Social History Social History: [facility]. He has Two daughters . He has recently and is having difficulty living home alone. Surrogate medical decision maker: Tala Jiang, daughter. Code status: Full code. Smoking packs per day: 1 Smoking cigarettes per day: 20.0 Years smoked: 20 Smoking pack-years: 20.00 Smoking status: Former smoker Tobacco type: cigarettes Second hand tobacco smoke exposure: No Smoking end date: 10/05/91 Alcohol intake: never Drinks per week: 0 Substance use: never Substance use type: does not use Lack of Transportation: No Lack of Food: Never True Current Housing: I Have Housing Concerned About Future Housing: No Difficulty Paying Gas/Electric Bills: No Difficulty Paying for Meds: No Currently Unemployed: No Education: Associate Degree Difficulty w/ Childcare or Family Care: No Additional living arrangements comments: as of September 2022. Lives in independent living at [facility]. Occupation/Education: retired Additional occupation/education comments: Retired from the [employer]. Spiritual care concerns: No Agree to blood products:
[2023-01-31 19:34] LABS: Basophils Percent Auto 0.2 % (0.2-1.2); Eosinophils Absolute Auto 0.1 K/mm3 (0-0.3); Eosinophils Percent Auto 0.4 % (0-4.4); Hematocrit 34.9 % (42.0-52.0); Hemoglobin 11.6 g/dL (14.0-18.0); Immature Granulocyte Absolute 0.12 K/mm3 (0.00-0.031); Immature Granulocyte Percent A 0.9 % (0-0.5); Lymphocytes Percent Auto 12.2 % (18.3-44.2); Mean Corpuscular HGB Conc 33.2 g/dl (32-36); Mean Corpuscular Hemoglobin 29.2 pg (26-34); Mean Corpuscular Volume 87.9 fl (80-100); Monocytes Absolute Auto 0.9 K/mm3 (0.1-0.6); Monocytes Percent Auto 6.9 % (2.6-8.5); Neutrophils Absolute Auto 10.5 K/mm3 (1.3-6.7); Neutrophils Percent Auto 79.4 % (45.5-73.1); Platelet Count Result 321 k/mm3 (150-375); Red Blood Count 3.97 M/mm3 (4.6-6.20); Red Cell Distribution Width 15.6 % (11.5-14.5); White Blood Count 13.2 K/mm3 (4.5-10.0)
[2023-01-31 19:44] LABS: Anion Gap 4 mmol/L (8-16); Blood Urea Nitrogen 19 mg/dL (9-20); Calcium 8.6 mg/dL (8.4-10.2); Carbon Dioxide 36 mmol/L (22-30); Chloride 92 mmol/L (98-107); Estimated CRCL calculation 60 ml/min; Estimated Glomerular Filt Rate > 60; Glucose 111 mg/dL (65-110); Potassium 2.9 mmol/L (3.4-5.0); Sodium 132 mmol/L (137-145)
[2023-01-31 20:09] LABS: Influenza A QL RT-PCR Negative (Negative); Influenza B QL RT-PCR Negative (Negative); SARS-CoV-2 RNA PCR Negative (Negative)
[2023-01-31 20:28] LABS: INR 1.2; Prothrombin Time 15.4 Seconds (11.1-14.7)
--- NOTE | 2023-01-31 22:02 | PC.NURSE ---
[facility] here for pt transfer at this time. Pt A&Ox4, resp even non-labored.
== END 2023-01-31 22:13 | disposition short-term general hospital (02) ==
PROVIDERS: Emergency Provider Emergency Medicine; PCP Family Medicine
DX: S06.6XAA Traumatic subarachnoid hemorrhage with loss of consciousness status unknown, initial encounter (principal); S32.491A Other specified fracture of right acetabulum, initial encounter for closed fracture; S32.591A Other specified fracture of right pubis, initial encounter for closed fracture; I50.30 Unspecified diastolic (congestive) heart failure; I11.0 Hypertensive heart disease with heart failure; J44.9 Chronic obstructive pulmonary disease, unspecified; I25.10 Atherosclerotic heart disease of native coronary artery without angina pectoris; E78.5 Hyperlipidemia, unspecified; I48.20 Chronic atrial fibrillation, unspecified; J45.20 Mild intermittent asthma, uncomplicated; N40.0 Benign prostatic hyperplasia without lower urinary tract symptoms; M17.11 Unilateral primary osteoarthritis, right knee; K21.9 Gastro-esophageal reflux disease without esophagitis; Z95.1 Presence of aortocoronary bypass graft; Z95.0 Presence of cardiac pacemaker; Z86.718 Personal history of other venous thrombosis and embolism; Z87.891 Personal history of nicotine dependence; M47.812 Spondylosis without myelopathy or radiculopathy, cervical region; I51.7 Cardiomegaly; R91.8 Other nonspecific abnormal finding of lung field; M19.021 Primary osteoarthritis, right elbow; W19.XXXA Unspecified fall, initial encounter
CPT/HCPCS: 36415; 70450; 71045; 72125; 73080; 73502; 80048; 85025; 85610; 85730; 87636; 93005; 96374; 99291; J0131